=== PATIENT | female | born 1985 | race Caucasian/White ===

== ENCOUNTER → 2017-02-26 | Outpatient (REF) | payer OTHER ==
[~2017-02-26] MED LIST: TRINTAB11
[2017-02-26 19:16] LABS: DIFF SLIDE NUMBER 286; MEAN CORPUSCULAR HGB CONC 33.7 g/dl (32.0-36.5); MEAN CORPUSCULAR VOLUME 85.9 fl (80.0-96.0); PLATELET COUNT, AUTOMATED 372 k/mm3 (150-450); RED CELL DISTRIBUTION WIDTH 11.9 % (11.5-14.5); WHITE BLOOD COUNT 12.3 K/mm3 (4.0-10.0)
[2017-02-26 20:09] LABS: ALBUMIN 3.6 GM/DL (3.2-5.2); ALBUMIN/GLOBULIN RATIO 0.97 (1.00-1.93); ALKALINE PHOSPHATASE 106 U/L (45-117); ALT/SGPT 23 U/L (12-78); ANION GAP 9 MEQ/L (8-16); AST/SGOT 15 U/L (15-37); BILIRUBIN,TOTAL 0.2 MG/DL (0.2-1.0); BLOOD UREA NITROGEN 12 MG/DL (7-18); CALCIUM LEVEL 9.1 MG/DL (8.5-10.1); CARBON DIOXIDE LEVEL 25 MEQ/L (21-32); CHLORIDE LEVEL 106 MEQ/L (98-107); CREATININE FOR GFR 0.85 MG/DL (0.55-1.02); FREE T4 1.02 NG/DL (0.76-1.46); GLOMERULAR FILTRATION RATE > 60.0 (>60); GLUCOSE, FASTING 83 MG/DL (70-105); POTASSIUM SERUM 4.5 MEQ/L (3.5-5.1); SODIUM LEVEL 140 MEQ/L (136-145); TOTAL PROTEIN 7.3 GM/DL (6.4-8.2)
[2017-02-26 20:10] LABS: FOLATE 8.2 NG/ML
[2017-02-26 21:24] LABS: EOSINOPHILS 1 % (0-5)
[2017-02-26 21:28] LABS: ACANTHOCYTES 1+; POIKILOCYTOSIS 1+
[2017-02-26 22:11] LABS: ERYTHROCYTE SEDIMENTATION RATE 19 mm/hr (0-20)
== END ==
LOC: M SFHCPLAZ 16:06
PROVIDERS: ATTEND Nurse Practitioner Family
DX: G43.109 Migraine with aura, not intractable, without status migrainosus (principal); R53.83 Other fatigue

== ENCOUNTER → 2017-03-21 | Outpatient (CLI) | payer OTHER ==
--- NOTE | 2017-03-21 09:10 | REP ---
Right upper quadrant sonography: History: However quadrant pain. Comparison study: There is a CT study of the abdomen from February 04, 2011. Findings: Scanning through the right upper quadrant of the abdomen demonstrates a normal sized, thin-walled gallbladder without evidence of stone or polyp. Common bile duct is normal measuring 0.3 cm in greatest diameter. No focal liver lesion is seen. Liver size is normal. There is a simple cyst in the right lobe of the liver measuring 2.2 cm in greatest diameter. This was present in an [address] study at which point it measures 1.4 cm. No pancreatic abnormality is observed. The tail of the pancreas is obscured by abdominal gas. No right renal abnormality is seen. There is no evidence of ascites. The right kidney measures 11.5 x 5.0 x 4.2 cm. Impression: Small cyst right lobe hepatic lobe, otherwise negative right upper quadrant sonography. Signed by Josh Tolliver MD 03/21/2017 09:02 A
== END ==
LOC: M WHC 07:48
PROVIDERS: ATTEND Nurse Practitioner Family
DX: R10.11 Right upper quadrant pain (principal); K76.89 Other specified diseases of liver

== ENCOUNTER 2017-07-13 06:26 | Emergency (ER) | payer OTHER ==
[2017-07-13] MEDS ORDERED: migraine med PO (06:39)
[2017-07-13] MEDS ORDERED: METF500T13 PO (06:39)
[2017-07-13] MEDS ORDERED: TOPA100T12 PO (06:39)
[2017-07-13] MEDS ORDERED: PROZ20CA11 PO (06:39)
[2017-07-13] MEDS ORDERED: birth control PO (06:39)
[2017-07-13] MEDS ORDERED: MORPHINE 4 MG/ML 1ML SYRINGE IV ONE (07:00)
[2017-07-13] MEDS ORDERED: ONDANSETRON 4MG/2ML VIAL (J2405) IV ONE (07:00)
[2017-07-13 07:10] LABS: BASO # 0.1 K/mm3 (0.0-0.2); BASO % 0.7 % (0.0-1.0); EOS # 0.2 K/mm3 (0.0-0.50); EOS % 1.5 % (0.0-3.0); LARGE UNSTAINED CELL # 0.3 K/mm3 (0.0-0.4); LARGE UNSTAINED CELL % 2.1 % (0.0-4.0); LYMPH % 30.4 % (24.0-44.0); MEAN CORPUSCULAR HEMOGLOBIN 29.6 pg (27.0-33.0); MEAN CORPUSCULAR HGB CONC 33.8 g/dl (32.0-36.5); MEAN CORPUSCULAR VOLUME 87.4 fl (80.0-96.0); MONO # 0.7 K/mm3 (0.0-0.8); MONO % 5.7 % (0.0-5.0); NEUTROPHILS # 7.3 K/mm3 (1.8-7.7); NEUTROPHILS % 59.5 % (36.0-66.0); PLATELET COUNT, AUTOMATED 362 k/mm3 (150-450); WHITE BLOOD COUNT 12.3 K/mm3 (4.0-10.0)
[2017-07-13] MEDS ORDERED: PROMETHAZINE INJ 25 MG/ML VIAL (J2550) IV ONE (07:15)
[2017-07-13 07:31] LABS: CONTROL LINE HCG INT CTR LINE PRESENT
--- NOTE | 2017-07-13 07:33 | ECGEPIP ---
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
[2017-07-13 07:42] LABS: ALBUMIN 3.6 GM/DL (3.2-5.2); ALBUMIN/GLOBULIN RATIO 1.03 (1.00-1.93); ALKALINE PHOSPHATASE 104 U/L (45-117); ALT/SGPT 21 U/L (12-78); ANION GAP 10 MEQ/L (8-16); AST/SGOT 15 U/L (15-37); BILIRUBIN,DIRECT 0.1 MG/DL (0.0-0.2); BILIRUBIN,TOTAL 0.3 MG/DL (0.2-1.0); BLOOD UREA NITROGEN 15 MG/DL (7-18); CALCIUM LEVEL 9.1 MG/DL (8.5-10.1); CARBON DIOXIDE LEVEL 20 MEQ/L (21-32); CHLORIDE LEVEL 112 MEQ/L (98-107); CREATININE FOR GFR 0.92 MG/DL (0.55-1.02); GLOMERULAR FILTRATION RATE > 60.0 (>60); GLUCOSE, FASTING 105 MG/DL (70-105); POTASSIUM SERUM 4.1 MEQ/L (3.5-5.1); SODIUM LEVEL 142 MEQ/L (136-145); TOTAL PROTEIN 7.1 GM/DL (6.4-8.2)
--- NOTE | 2017-07-13 08:10 | REP ---
CT of the abdomen pelvis without IV or bowel contrast: Comparison is a 02/04/2011. The visualized lung ramirez are clear. There is a 2 cm cyst in the hepatic dome. This measured to 1.4 cm previously. The unenhanced hepatic parenchyma is otherwise homogeneous and unremarkable. The gallbladder, pancreas and spleen are unremarkable. The adrenals, unenhanced kidneys and abdominal aorta are unremarkable. There is no bowel distension. Mesentery is unremarkable. There is no ascites. Pelvis: The appendix is unremarkable. The uterus and adnexa and urinary bladder are unremarkable. There is no adenopathy or ascites. The pelvic bowel loops are unremarkable. Impression: Essentially negative CT study of the abdomen pelvis without IV or bowel contrast. A 2 cm cyst is incidentally noted in the dome of the liver. Signed by Rodolfo Jha MD 07/13/2017 08:02 A
--- NOTE | 2017-07-13 08:27 | REP ---
Supine abdomen two views: There are no comparisons. The bowel gas pattern is normal. There are pelvic calcifications, likely phleboliths. Skeletal structures and soft tissues are otherwise unremarkable. Impression: Normal bowel gas pattern. Signed by Rodolfo Jha MD 07/13/2017 08:15 A
[2017-07-13] MEDS ORDERED: ISOVUE-370 76% 100ML VIAL (Q9967) As Ordered ONE (08:29)
--- NOTE | 2017-07-13 09:19 | REP ---
CT of the abdomen and pelvis with IV contrast, without bowel contrast: The visualized lung ramirez are unremarkable. There is a 2.0 cm cyst in the dome of the liver. The hepatic parenchyma is otherwise homogeneous and unremarkable. The gallbladder, pancreas and spleen are homogeneous and unremarkable. The adrenals are unremarkable. The kidneys are unremarkable. There is no hydronephrosis. The abdominal aorta is unremarkable. There is no bowel distension or obstruction. No bowel wall thickening or enhancement. The M mesentery is unremarkable. Pelvis: The appendix is not identified, however there is no pericecal inflammation or abscess. There is no ascites or adenopathy. The uterus, adnexa and bladder are unremarkable. The pelvic bowel loops are unremarkable. Impression: There are no inflammatory changes in the mesentery. No adenopathy or ascites. No bowel wall thickening, enhancement or bowel obstruction. There is a 2 cm cyst in the dome of the liver. No hydronephrosis. Abdominal aorta is unremarkable. The gallbladder is unremarkable. Essentially negative CT of the abdomen and pelvis. Signed by Rodolfo Jha MD 07/13/2017 09:11 A
[2017-07-13 10:28] VITALS: BP 132/80
[2017-07-13] MEDS ORDERED: PHEN1SUP6 PO (10:28)
--- NOTE | 2017-07-13 13:26 | ED PDOC ---
Post-Departure Follow-Up radiology report faxed to PCP, [facility] Caren Kidd MD Jul 13, 2017 13:26
[2017-08-20] MEDS ORDERED: ENSKTAB PO (09:27)
[2017-08-20] MEDS ORDERED: VITA100067 PO (09:27)
== END 2017-07-13 10:50 | disposition home or self-care (01) ==
LOC: M ED 06:26
DX: R10.9 Unspecified abdominal pain (principal); N80.9 Endometriosis, unspecified; K58.9 Irritable bowel syndrome, unspecified; Z87.42 Personal history of other diseases of the female genital tract
CPT/HCPCS: 74000; 74176; 74177; 80048; 80076; 83605; 83690; 84703; 85025; 93000; 93041; 96374; 96375; 99285; J2405; Q9967

== ENCOUNTER → 2017-07-16 | Outpatient (REF) | payer OTHER ==
[~2017-07-16] MED LIST changes: +ENSKTAB PO; +METF500T13 PO; +PHEN1SUP6 PO; +PROZ20CA11 PO; +TOPA100T12 PO; +VITA100067 PO; +birth control PO; +migraine med PO
== END ==
LOC: M SFHCPLAZ 09:19
PROVIDERS: ATTEND Nurse Practitioner Family
DX: R19.7 Diarrhea, unspecified (principal)

== ENCOUNTER → 2017-07-22 | Outpatient (REF) | payer OTHER ==
[2017-07-22 17:53] LABS: ALBUMIN 3.4 GM/DL (3.2-5.2); ALBUMIN/GLOBULIN RATIO 0.92 (1.00-1.93); ALKALINE PHOSPHATASE 104 U/L (45-117); ALT/SGPT 20 U/L (12-78); ANION GAP 11 MEQ/L (8-16); AST/SGOT 11 U/L (15-37); BILIRUBIN,TOTAL 0.2 MG/DL (0.2-1.0); BLOOD UREA NITROGEN 14 MG/DL (7-18); CALCIUM LEVEL 8.8 MG/DL (8.5-10.1); CARBON DIOXIDE LEVEL 20 MEQ/L (21-32); CHLORIDE LEVEL 112 MEQ/L (98-107); CREATININE FOR GFR 0.97 MG/DL (0.55-1.02); GLOMERULAR FILTRATION RATE > 60.0 (>60); GLUCOSE, FASTING 106 MG/DL (70-105); POTASSIUM SERUM 4.1 MEQ/L (3.5-5.1); SODIUM LEVEL 143 MEQ/L (136-145); TOTAL PROTEIN 7.1 GM/DL (6.4-8.2)
[2017-07-22 17:58] LABS: FOLATE 5.8 NG/ML (>5.4); VITAMIN B12 LEVEL 476 PG/ML (247-911)
[2017-07-22 19:32] LABS: BASO # 0.1 K/mm3 (0.0-0.2); BASO % 0.5 % (0.0-1.0); EOS # 0.1 K/mm3 (0.0-0.50); LARGE UNSTAINED CELL # 0.1 K/mm3 (0.0-0.4); LARGE UNSTAINED CELL % 0.9 % (0.0-4.0); LYMPH # 3.3 K/mm3 (1.5-4.5); LYMPH % 29.3 % (24.0-44.0); MEAN CORPUSCULAR HEMOGLOBIN 29.4 pg (27.0-33.0); MEAN CORPUSCULAR HGB CONC 33.2 g/dl (32.0-36.5); MEAN CORPUSCULAR VOLUME 88.5 fl (80.0-96.0); MONO # 0.5 K/mm3 (0.0-0.8); MONO % 4.2 % (0.0-5.0); NEUTROPHILS # 7.1 K/mm3 (1.8-7.7); NEUTROPHILS % 64.1 % (36.0-66.0); PLATELET COUNT, AUTOMATED 327 k/mm3 (150-450); WHITE BLOOD COUNT 11.1 K/mm3 (4.0-10.0)
== END ==
LOC: M LABNEURO 16:13
PROVIDERS: ATTEND Psychiatry & Neurology Neurology
DX: G43.009 Migraine without aura, not intractable, without status migrainosus (principal)

== ENCOUNTER → 2017-08-01 | Outpatient (CLI) | payer OTHER ==
[2017-08-01 13:26] LABS: HEPATITIS B SURFACE ANTIBODY NEGATIVE (POSITIVE)
[2017-08-02 14:11] LABS: TISSUE TRANSGLUTAMINASE IgG <2 U/mL (0-5)
== END ==
LOC: M LAB 08:03
PROVIDERS: ATTEND Internal Medicine Gastroenterology
DX: R10.13 Epigastric pain (principal)

== ENCOUNTER → 2017-08-14 | Outpatient (CLI) | payer OTHER ==
--- NOTE | 2017-08-14 10:34 | REP ---
BILIARY SCAN WITH EJECTION FRACTION: 08/14/2017. COMPARISON: gallbladder ultrasound 03/21/2017, CT abdomen and pelvis 07/13/2017. CLINICAL HISTORY: Epigastric pain. Known hepatic cyst. Nausea and heartburn. TECHNIQUE: The patient received 6.6 mCi technetium 99m mebrofenin via an IV. Sequential 5-minute anterior images were obtained for 1 hour. Thereafter 8 ounces of Ensure Enlive were consumed. Beginning 65 minutes post tracer administration, another period of 60 minutes of dynamic imaging were performed at 2 minute intervals. Region of interest drawn about the gallbladder and gallbladder ejection fraction calculated by a semi-automated method. FINDINGS: There is homogeneous tracer distribution throughout the liver with the exception of the breast shadow over the dome of the liver and this is normal. Activity is first seen in the common duct and duodenum at 15 minutes with a tiny amount in the gallbladder fossa with progressive activity accumulating in the gallbladder. Jejunum first seen on the 20-minute image. There is progressive washout from the liver, accumulation in the gallbladder with peristalsis into small bowel in a normal fashion. Gallbladder ejection fraction at 1 hour is measured at 40%. A normal range with this technique is greater than 35%. IMPRESSION: 1. Normal biliary scan for homogeneous prompt tracer distribution, normal biliary to bowel transit and accumulation of tracer in the gallbladder, all in unremarkable fashion, good washout from the liver. 2. Ejection fraction 40% at 1 hour. This is at the low end of the normal range. Signed by Timmy Evans MD 08/14/2017 02:57 P
== END ==
LOC: M RAD 07:35
PROVIDERS: ATTEND Internal Medicine Gastroenterology
DX: R10.13 Epigastric pain (principal)

== ENCOUNTER 2017-08-26 09:30 | Outpatient (CLI) | payer OTHER ==
[~2017-08-26] VITALS: Ht 172.7 cm; Wt 101.6 kg
[2017-08-26] MEDS ORDERED: NS 1,000 ML IV ONE (09:45)
[2017-08-26] MEDS ORDERED: fentaNYL 100 MCG/2 ML INJECTION (J3010) As Ordered ONE (10:21)
[2017-08-26] MEDS ORDERED: PROPOFOL 200 MG/20 ML VIAL As Ordered ONE (10:29)
[2017-08-26] MEDS ORDERED: LIDOCAINE 2% INJ 100 MG/5 ML SDV (FOR ANES.) As Ordered ONE (10:29)
--- NOTE | 2017-08-26 10:40 | ROOR ---
Patient Name: Krista Sykes Procedure Date: 08/26/2017 10:19 AM Date of : 1985 Age: 31 Room: [facility] Gender: Female Note Status: Finalized Procedure: Upper GI endoscopy Indications: Dyspepsia, Dysphagia Providers: Km Brumfield MD Referring MD: Galina Galindo NP Requesting Provider: Medicines: Monitored Anesthesia Care Complications: No immediate complications. Procedure: Pre-Anesthesia Assessment: - Prior to the procedure, a History and Physical was performed, and patient medications and allergies were reviewed. The patient is competent. The risks and benefits of the procedure and the sedation options and risks were discussed with the patient. All questions were answered and informed consent was obtained. Patient identification and proposed procedure were verified by the physician, the nurse and the customer consultant in the procedure room. Mental Status Examination: alert and oriented. Airway Examination: normal oropharyngeal airway and neck mobility. Respiratory Examination: clear to auscultation. CV Examination: normal. Prophylactic Antibiotics: The patient does not require prophylactic antibiotics. Prior Anticoagulants: The patient has taken no previous anticoagulant or antiplatelet agents. ASA Grade Assessment: II - A patient with mild systemic disease. After reviewing the risks and benefits, the patient was deemed in satisfactory condition to undergo the procedure. The anesthesia plan was to use monitored anesthesia care (MAC). Immediately prior to administration of medications, the patient was re-assessed for adequacy to receive sedatives. The heart rate, respiratory rate, oxygen saturations, blood pressure, adequacy of pulmonary ventilation, and response to care were monitored throughout the procedure. The physical status of the patient was re-assessed after the procedure. The Endoscope was introduced through the mouth, and advanced to the second part of duodenum. The upper GI endoscopy was accomplished without difficulty. The patient tolerated the procedure well. Findings: No endoscopic abnormality was evident in the esophagus to explain the patient's complaint of dysphagia. Biopsies were obtained from the proximal and distal esophagus with cold forceps for histology of suspected eosinophilic esophagitis. Verification of patient identification for the specimen was done by the physician and nurse using the patient's name, date and medical record number. Estimated blood loss was minimal. The Z-line was regular and was found 39 cm from the incisors. Diffuse mildly erythematous mucosa without bleeding was found in the gastric antrum. Biopsies were taken with a cold forceps for Helicobacter pylori testing. No gross lesions were noted in the duodenal bulb and in the second portion of the duodenum. Biopsies for histology were taken with a cold forceps for evaluation of celiac disease. Impression: - No endoscopic esophageal abnormality to explain patient's dysphagia. Biopsied. - Z-line regular, 39 cm from the incisors. - Erythematous mucosa in the antrum. Biopsied. - No gross lesions in the duodenal bulb and in the second portion of the duodenum. Biopsied. Recommendation: - Patient has a contact number available for emergencies. The signs and symptoms of potential delayed complications were discussed with the patient. Return to normal activities tomorrow. Written discharge instructions were provided to the patient. - Resume previous diet. - Continue present medications. - Await pathology results. - Return to GI clinic as previously scheduled on 09/15/2017 at 9:00 AM. - Return to primary care physician. Km Brumfield MD Km Brumfield MD 08/26/2017 10:40:19 AM This report has been signed electronically. Number of Addenda: 0 Note Initiated On: 08/26/2017 10:19 AM Estimated Blood Loss: Estimated blood loss was minimal.
[2017-08-26 11:04] VITALS: BP 116/66
== END 2017-08-26 11:06 | disposition home or self-care (01) ==
LOC: M OPP 09:30
PROVIDERS: ATTEND Internal Medicine Gastroenterology
DX: R13.10 Dysphagia, unspecified (principal); R10.13 Epigastric pain; K31.89 Other diseases of stomach and duodenum; N80.9 Endometriosis, unspecified; E28.2 Polycystic ovarian syndrome; F41.9 Anxiety disorder, unspecified; K58.0 Irritable bowel syndrome with diarrhea; Z80.1 Family history of malignant neoplasm of trachea, bronchus and lung; Z79.899 Other long term (current) drug therapy
CPT/HCPCS: 43239; 88305; J3010

== ENCOUNTER → 2017-12-29 | Outpatient (CLI) | payer OTHER ==
[2017-12-29 10:49] LABS: BASO # 0.1 10^3/uL (0.0-0.2); BASO % 0.8 % (0.0-1.0); EOS # 0.2 10^3/uL (0.0-0.50); EOS % 1.9 % (0.0-3.0); HEMATOCRIT 40.3 % (36.0-47.0); HEMOGLOBIN 13.1 g/dl (12.0-16.0); IMMATURE GRANULOCYTE % 0.2 % (0-0); LYMPH # 4.1 10^3/uL (1.5-4.5); LYMPH % 42.3 % (24.0-44.0); MEAN CORPUSCULAR HEMOGLOBIN 28.5 pg (27.0-33.0); MEAN CORPUSCULAR HGB CONC 32.5 g/dl (32.0-36.5); MEAN CORPUSCULAR VOLUME 87.8 fl (80.0-96.0); MONO # 0.8 10^3/uL (0.0-0.8); MONO % 7.9 % (0.0-5.0); NEUTROPHILS # 4.5 10^3/uL (1.8-7.7); NEUTROPHILS % 46.9 % (36.0-66.0); PLATELET COUNT, AUTOMATED 319 10^3/uL (150-450); RED BLOOD COUNT 4.59 10^6/uL (4.00-5.40); RED CELL DISTRIBUTION WIDTH 13.2 % (11.5-14.5); WHITE BLOOD COUNT 9.7 10^3/uL (4.0-10.0)
== END ==
LOC: M LAB 10:18
DX: D72.829 Elevated white blood cell count, unspecified (principal)
CPT/HCPCS: 85027

== ENCOUNTER → 2018-01-08 | Outpatient (CLI) | payer OTHER | LOC: M WHC 08:13 | DX: K76.89 Other specified diseases of liver (principal) | CPT/HCPCS: 76705 ==

== ENCOUNTER → 2018-01-09 | Outpatient (REF) | payer OTHER ==
[2018-01-09 12:53] LABS: ALBUMIN 3.7 GM/DL (3.2-5.2); ALBUMIN/GLOBULIN RATIO 1.12 (1.00-1.93); ALKALINE PHOSPHATASE 91 U/L (45-117); ALT/SGPT 46 U/L (12-78); ANION GAP 8 MEQ/L (8-16); AST/SGOT 30 U/L (7-37); BILIRUBIN,TOTAL 0.4 MG/DL (0.2-1.0); BLOOD UREA NITROGEN 21 MG/DL (7-18); CALCIUM LEVEL 9.1 MG/DL (8.5-10.1); CARBON DIOXIDE LEVEL 25 MEQ/L (21-32); CHLORIDE LEVEL 110 MEQ/L (98-107); CHOLESTEROL LEVEL 272 MG/DL (<200); CHOLESTEROL RISK RATIO 4.184 (<5); CREATININE FOR GFR 0.92 MG/DL (0.55-1.30); GLOMERULAR FILTRATION RATE > 60.0 (>60); GLUCOSE, FASTING 90 MG/DL (70-100); HDL CHOLESTEROL 65 MG/DL (>40); LDL CHOLESTEROL 188.2 MG/DL (<100); NON-HDL-C 207 MG/DL; POTASSIUM SERUM 4.4 MEQ/L (3.5-5.1); SODIUM LEVEL 143 MEQ/L (136-145); TRIGLYCERIDES LEVEL 94 MG/DL (<150)
[2018-01-09 13:01] LABS: TOTAL 25(OH) VITAMIN D 36.6 NG/ML (30.0-100.0)
== END ==
LOC: M SFHCPLAZ 08:19
DX: E78.00 Pure hypercholesterolemia, unspecified (principal); E55.9 Vitamin D deficiency, unspecified

== ENCOUNTER 2018-02-12 09:51 | Outpatient (RCR) | payer OTHER | END 2018-02-28 | LOC: M PT 09:51 | DX: Z51.89 Encounter for other specified aftercare (principal); M19.90 Unspecified osteoarthritis, unspecified site ==

== ENCOUNTER 2018-03-02 10:52 | Outpatient (RCR) | payer OTHER | END 2018-03-30 | LOC: M PT 10:52 | DX: Z51.89 Encounter for other specified aftercare (principal); M54.5 Low back pain ==

== ENCOUNTER 2018-05-22 12:16 | Day surgery (SDC) | payer OTHER ==
[~2018-05-22 12:16] MED LIST changes: -ENSKTAB PO; +GLYCOPYRROLATE INJ 0.2 MG/ML 2 ML VIAL As Ordered; +HYDROmorphone HCL 2 MG/ML 1ML VIAL (J1170) As Ordered; +KETOROLAC 60 MG/2 ML VIAL (J1885) As Ordered; +LIDOCAINE 2% INJ 100 MG/5 ML SDV (FOR ANES.) As Ordered; -METF500T13 PO; +MIDAZOLAM INJ 2 MG/2 ML VIAL (J2250) As Ordered; +NEOSTIGMINE 10 MG/10 ML VIAL (J2710) As Ordered; +ONDANSETRON 4MG/2ML VIAL (J2405) As Ordered; -PHEN1SUP6 PO; +PROPOFOL 200 MG/20 ML VIAL As Ordered; -PROZ20CA11 PO; +ROCURONIUM BROMIDE 50 MG/5 ML VIAL As Ordered; -TOPA100T12 PO; -TRINTAB11; -VITA100067 PO; -birth control PO; +dexameTHASONE 4 MG/ML 1ML VIAL (J1100) As Ordered; +fentaNYL 100 MCG/2 ML INJECTION (J3010) As Ordered; -migraine med PO
[2018-05-22] MEDS ORDERED: LIDOCAINE 1% SDV 5 ML VIAL SQ (12:30)
[2018-05-22 12:36] LABS: HEMOGLOBIN 13.5 g/dl (12.0-15.5); MEAN CORPUSCULAR HEMOGLOBIN 29.3 pg (27.0-33.0); MEAN CORPUSCULAR HGB CONC 33.8 g/dl (32.0-36.5); PLATELET COUNT, AUTOMATED 318 10^3/uL (150-450); RED CELL DISTRIBUTION WIDTH 13.2 % (11.5-14.5); WHITE BLOOD COUNT 11.3 10^3/uL (4.0-10.0)
[2018-05-22] MEDS ORDERED: ceFAZolin 2 GM/D5W 50 ML IV BAG (J0690 PER 500MG) As Ordered (12:46)
[2018-05-22 12:57] LABS: CONTROL LINE UCG INT CTR LINE PRESENT; URINE PREG TEST NEGATIVE (NEGATIVE)
[2018-05-22] MEDS: LR 1,000 ML IV ×3 (13:25→16:15)
[2018-05-22] MEDS: NICOTINE 21MG/24HR 1 EA TRANSDERMAL TD (14:05)
[2018-05-22] MEDS: BUPIVACAINE HCL 0.25% 10 ML VIAL As Ordered (14:40)
[2018-05-22] MEDS: METHYLENE BLUE 0.5% (5MG/ML) 10 ML AMP (PROVAYBLUE)(Q9968 PER 1MG) As Ordered (15:00)
[2018-05-22] MEDS ORDERED: ROCURONIUM BROMIDE 50 MG/5 ML VIAL As Ordered (15:10)
[2018-05-22] MEDS ORDERED: fentaNYL 100 MCG/2 ML INJECTION (J3010) As Ordered (16:02)
[2018-05-22] MEDS: fentaNYL 100 MCG/2 ML INJECTION (J3010) IV ×4 (16:05→16:20)
[2018-05-22] MEDS: PERCOCET 5MG/325MG TAB PO ×3 (16:15→21:06)
[2018-05-22] MEDS ORDERED: ONDANSETRON 4MG/2ML VIAL (J2405) IV ×2 (16:15)
[2018-05-22] MEDS ORDERED: PERCOCET 5MG/325MG TAB PO (16:15)
[2018-05-22] MEDS ORDERED: MORPHINE 4 MG/ML 1ML VIAL/SYRINGE (J2270) IV (16:15)
[2018-05-22] MEDS: DOCUSATE SODIUM 100 MG CAP PO (21:05)
[2018-05-22] MEDS: FLUoxetine 10 MG CAP PO (21:51)
[2018-05-23] MEDS: LR 1,000 ML IV (00:15)
[2018-05-23] MEDS: PERCOCET 5MG/325MG TAB PO ×2 (01:13→05:53)
[2018-05-23] MEDS: DOCUSATE SODIUM 100 MG CAP PO (09:17)
== END 2018-05-23 09:30 | disposition home or self-care (01) ==
LOC: M SDC 12:16 → M PED 16:58
DX: R10.2 Pelvic and perineal pain (principal); N73.6 Female pelvic peritoneal adhesions (postinfective); N99.71 Accidental puncture and laceration of a genitourinary system organ or structure during a genitourinary system procedure; N72 Inflammatory disease of cervix uteri; K21.9 Gastro-esophageal reflux disease without esophagitis; N80.0 Endometriosis of uterus; F41.9 Anxiety disorder, unspecified; E28.2 Polycystic ovarian syndrome; K58.9 Irritable bowel syndrome, unspecified; F17.210 Nicotine dependence, cigarettes, uncomplicated; Z79.899 Other long term (current) drug therapy
CPT/HCPCS: 58571

== ENCOUNTER → 2018-09-29 | Outpatient (REF) | payer OTHER ==
[2018-09-29 12:05] LABS: ESTIMATED AVERAGE GLUCOSE 111 MG/DL (60-110); HEMOGLOBIN A1c 5.5 %
[2018-09-29 12:43] LABS: ALBUMIN/GLOBULIN RATIO 1.43 (1.00-1.93); ALKALINE PHOSPHATASE 96 U/L (45-117); ALT/SGPT 20 U/L (12-78); ANION GAP 7 MEQ/L (8-16); AST/SGOT 14 U/L (7-37); BILIRUBIN,TOTAL 0.3 MG/DL (0.2-1.0); BLOOD UREA NITROGEN 15 MG/DL (7-18); CALCIUM LEVEL 8.9 MG/DL (8.5-10.1); CARBON DIOXIDE LEVEL 22 MEQ/L (21-32); CHLORIDE LEVEL 110 MEQ/L (98-107); CHOLESTEROL LEVEL 253 MG/DL (<200); CREATININE FOR GFR 0.86 MG/DL (0.55-1.30); FREE T4 0.96 NG/DL (0.76-1.46); GLOMERULAR FILTRATION RATE > 60.0 (>60); GLUCOSE, FASTING 92 MG/DL (70-100); HDL CHOLESTEROL 51 MG/DL (>40); LDL CHOLESTEROL 182 MG/DL (<100); NON-HDL-C 202 MG/DL; POTASSIUM SERUM 4.5 MEQ/L (3.5-5.1); SODIUM LEVEL 139 MEQ/L (136-145); TOTAL 25(OH) VITAMIN D 42.7 NG/ML (30.0-100.0); TOTAL PROTEIN 6.8 GM/DL (6.4-8.2); TRIGLYCERIDES LEVEL 101 MG/DL (<150)
== END ==
LOC: M SFHCPLAZ 08:21
DX: E78.00 Pure hypercholesterolemia, unspecified (principal); F41.9 Anxiety disorder, unspecified; E55.9 Vitamin D deficiency, unspecified

== ENCOUNTER → 2018-10-12 | Outpatient (CLI) | payer OTHER, MEDICAID ==
[2018-10-12 14:51] LABS: HEPATITIS C VIRUS ABY INDEX 0.1 INDEX (<0.8)
[2018-10-12 14:51] LABS: HEPATITIS A ANTIBODY IGM NEGATIVE (NEGATIVE); HEPATITIS B CORE ANTIBODY IGM NEGATIVE (NEGATIVE); HEPATITIS B SURFACE ANTIGEN NEGATIVE (NEGATIVE); HIV 1&2 SCREEN CENTAUR NEGATIVE (NEGATIVE)
[2018-10-12 14:53] LABS: CHLAMYDIA DNA AMPLIFICATION NEGATIVE (NEGATIVE); GC DNA AMPLIFICATION NEGATIVE (NEGATIVE)
== END ==
LOC: M SMT 09:20
DX: Z11.3 Encounter for screening for infections with a predominantly sexual mode of transmission (principal)
CPT/HCPCS: 87340

== ENCOUNTER → 2018-11-19 | Outpatient (REF) | payer OTHER ==
[~2018-11-19] MED LIST changes: +ENSKTAB PO; -GLYCOPYRROLATE INJ 0.2 MG/ML 2 ML VIAL As Ordered; -HYDROmorphone HCL 2 MG/ML 1ML VIAL (J1170) As Ordered; +IBUP1TAB7 PO; -KETOROLAC 60 MG/2 ML VIAL (J1885) As Ordered; -LIDOCAINE 2% INJ 100 MG/5 ML SDV (FOR ANES.) As Ordered; +MAGN400C2 PO; +METF500T13 PO; -MIDAZOLAM INJ 2 MG/2 ML VIAL (J2250) As Ordered; -NEOSTIGMINE 10 MG/10 ML VIAL (J2710) As Ordered; +NORE5TAB PO; -ONDANSETRON 4MG/2ML VIAL (J2405) As Ordered; +PERCOCET PO; +PHEN1SUP6 PO; -PROPOFOL 200 MG/20 ML VIAL As Ordered; +PROZ20CA11 PO; -ROCURONIUM BROMIDE 50 MG/5 ML VIAL As Ordered; +TOPA100T12 PO; +TRINTAB11; +VITA100067 PO; +birth control PO; -dexameTHASONE 4 MG/ML 1ML VIAL (J1100) As Ordered; -fentaNYL 100 MCG/2 ML INJECTION (J3010) As Ordered; +migraine med PO
[2018-11-19 13:33] LABS: BASO # 0.1 10^3/uL (0.0-0.2); BASO % 0.5 % (0.0-1.0); EOS # 0.2 10^3/uL (0.0-0.50); EOS % 1.2 % (0.0-3.0); HEMATOCRIT 42.5 % (36.0-47.0); HEMOGLOBIN 13.7 g/dl (12.0-15.5); LYMPH # 3.9 10^3/uL (1.5-4.5); LYMPH % 31.9 % (24.0-44.0); MEAN CORPUSCULAR HEMOGLOBIN 28.8 pg (27.0-33.0); MEAN CORPUSCULAR HGB CONC 32.2 g/dl (32.0-36.5); MEAN CORPUSCULAR VOLUME 89.5 fl (80.0-96.0); MONO % 7.8 % (0.0-5.0); NEUTROPHILS # 7.2 10^3/uL (1.8-7.7); NEUTROPHILS % 58.1 % (36.0-66.0); PLATELET COUNT, AUTOMATED 350 10^3/uL (150-450); RED BLOOD COUNT 4.75 10^6/uL (4.00-5.40); WHITE BLOOD COUNT 12.3 10^3/uL (4.0-10.0)
[2018-11-19 13:56] LABS: ALBUMIN 3.9 GM/DL (3.2-5.2); ALT/SGPT 17 U/L (12-78); BILIRUBIN,TOTAL 0.3 MG/DL (0.2-1.0); BLOOD UREA NITROGEN 17 MG/DL (7-18); CALCIUM LEVEL 8.9 MG/DL (8.5-10.1); CARBON DIOXIDE LEVEL 23 MEQ/L (21-32); CHLORIDE LEVEL 106 MEQ/L (98-107); CREATININE FOR GFR 0.92 MG/DL (0.55-1.30); GLOMERULAR FILTRATION RATE > 60.0 (>60); GLUCOSE, FASTING 82 MG/DL (70-100); POTASSIUM SERUM 4.6 MEQ/L (3.5-5.1); SODIUM LEVEL 138 MEQ/L (136-145); TOTAL PROTEIN 7.4 GM/DL (6.4-8.2)
== END ==
LOC: M SFHCPLAZ 11:05
PROVIDERS: ATTEND Physician Assistant Medical
DX: R11.0 Nausea (principal)

== ENCOUNTER → 2019-04-05 | Outpatient (REF) | payer OTHER ==
[~2019-04-05] MED LIST changes: +ENSK1TAB3 PO; -ENSKTAB PO
[2019-04-05 11:08] LABS: ALBUMIN 3.7 GM/DL (3.2-5.2); ALT/SGPT 17 U/L (12-78); BILIRUBIN,TOTAL 0.3 MG/DL (0.2-1.0); BLOOD UREA NITROGEN 18 MG/DL (7-18); CALCIUM LEVEL 8.8 MG/DL (8.5-10.1); CARBON DIOXIDE LEVEL 25 MEQ/L (21-32); CHLORIDE LEVEL 111 MEQ/L (98-107); CHOLESTEROL LEVEL 266 MG/DL (<200); CHOLESTEROL RISK RATIO 5.018 (<5); FREE T4 0.87 NG/DL (0.76-1.46); GLOMERULAR FILTRATION RATE > 60.0 (>60); GLUCOSE, FASTING 81 MG/DL (70-100); HDL CHOLESTEROL 53 MG/DL (>40); LDL CHOLESTEROL 188 MG/DL (<100); NON-HDL-C 213 MG/DL; POTASSIUM SERUM 4.6 MEQ/L (3.5-5.1); SODIUM LEVEL 139 MEQ/L (136-145); TRIGLYCERIDES LEVEL 124 MG/DL (<150)
== END ==
LOC: M SFHCPLAZ 08:03
PROVIDERS: ATTEND Nurse Practitioner Family
DX: E78.00 Pure hypercholesterolemia, unspecified (principal)

== ENCOUNTER 2019-06-05 11:17 | Emergency (ER) | payer OTHER ==
[~2019-06-05] VITALS: Ht 172.7 cm; Wt 113.6 kg
[2019-06-05] MEDS ORDERED: NS 1,000 ML IV ONE (12:00)
[2019-06-05] MEDS ORDERED: diphenhydrAMINE INJ 50MG/ML VIAL (J1200) IV ONE (12:00)
[2019-06-05] MEDS ORDERED: METOCLOPRAMIDE INJ 10MG/2ML VIAL (J2765) IV ONE (12:00)
[2019-06-05] MEDS ORDERED: KETOROLAC 30 MG/ML VIAL (J1885) IV ONE (12:00)
[2019-06-05 13:28] VITALS: BP 122/80
== END 2019-06-05 14:01 | disposition home or self-care (01) ==
LOC: M ED 12:08
DX: G43.909 Migraine, unspecified, not intractable, without status migrainosus (principal); F41.9 Anxiety disorder, unspecified; E28.2 Polycystic ovarian syndrome; Z79.899 Other long term (current) drug therapy; Z88.0 Allergy status to penicillin; Z88.2 Allergy status to sulfonamides
CPT/HCPCS: 96361; 96374; 96375; 99284; J1200; J1885; J2765

== ENCOUNTER → 2019-07-06 | Outpatient (REF) | payer OTHER ==
[2019-07-06 11:17] LABS: HEMOGLOBIN A1c 6.1 %
[2019-07-06 11:27] LABS: ALBUMIN 3.6 GM/DL (3.2-5.2); ALT/SGPT 14 U/L (12-78); BILIRUBIN,TOTAL 0.4 MG/DL (0.2-1.0); BLOOD UREA NITROGEN 13 MG/DL (7-18); CALCIUM LEVEL 8.4 MG/DL (8.5-10.1); CARBON DIOXIDE LEVEL 24 MEQ/L (21-32); CHLORIDE LEVEL 112 MEQ/L (98-107); CHOLESTEROL LEVEL 238 MG/DL (<200); CHOLESTEROL RISK RATIO 5.173 (<5); GLOMERULAR FILTRATION RATE > 60.0 (>60); GLUCOSE, FASTING 80 MG/DL (70-100); HDL CHOLESTEROL 46 MG/DL (>40); LDL CHOLESTEROL 172 MG/DL (<100); NON-HDL-C 192 MG/DL; POTASSIUM SERUM 4.3 MEQ/L (3.5-5.1); SODIUM LEVEL 142 MEQ/L (136-145); TOTAL PROTEIN 6.8 GM/DL (6.4-8.2); TRIGLYCERIDES LEVEL 102 MG/DL (<150)
== END ==
LOC: M SFHCPLAZ 08:26
PROVIDERS: ATTEND Nurse Practitioner Family
DX: E28.2 Polycystic ovarian syndrome (principal); E78.00 Pure hypercholesterolemia, unspecified

== ENCOUNTER → 2019-08-24 | Outpatient (REF) | payer OTHER ==
[2019-08-24 10:27] LABS: BASO # 0.1 10^3/uL (0.0-0.2); BASO % 0.7 % (0.0-1.0); EOS # 0.1 10^3/uL (0.0-0.5); EOS % 1.1 % (0.0-3.0); HEMOGLOBIN 13.2 g/dl (12.0-15.5); LYMPH # 3.1 10^3/uL (1.5-5.0); LYMPH % 26.8 % (24.0-44.0); MEAN CORPUSCULAR HEMOGLOBIN 28.9 pg (27.0-33.0); MEAN CORPUSCULAR VOLUME 87.7 fl (80.0-96.0); MONO # 0.9 10^3/uL (0.0-0.8); MONO % 7.8 % (0.0-5.0); NEUTROPHILS # 7.4 10^3/uL (1.5-8.5); PLATELET COUNT, AUTOMATED 344 10^3/uL (150-450); RED BLOOD COUNT 4.56 10^6/uL (4.00-5.40); WHITE BLOOD COUNT 11.7 10^3/uL (4.0-10.0)
[2019-08-24 10:48] LABS: ALBUMIN 3.6 GM/DL (3.2-5.2); ALT/SGPT 21 U/L (12-78); BILIRUBIN,TOTAL 0.5 MG/DL (0.2-1.0); BLOOD UREA NITROGEN 17 MG/DL (7-18); CALCIUM LEVEL 8.9 MG/DL (8.5-10.1); CARBON DIOXIDE LEVEL 23 MEQ/L (21-32); CHLORIDE LEVEL 107 MEQ/L (98-107); FERRITIN 24 NG/ML (8-252); FREE T4 0.92 NG/DL (0.76-1.46); GLOMERULAR FILTRATION RATE > 60.0 (>60); GLUCOSE, FASTING 97 MG/DL (70-100); POTASSIUM SERUM 4.2 MEQ/L (3.5-5.1); SODIUM LEVEL 139 MEQ/L (136-145); TOTAL 25(OH) VITAMIN D 37.8 NG/ML (30.0-100.0); VITAMIN B12 LEVEL 705 PG/ML
== END ==
LOC: M SFHCPLAZ 07:45
PROVIDERS: ATTEND Nurse Practitioner Family
DX: R53.83 Other fatigue (principal)

== ENCOUNTER → 2019-10-04 | Outpatient (REF) | payer OTHER | LOC: M SFHCPLAZ 14:52 | PROVIDERS: ATTEND Nurse Practitioner Adult Health | DX: R73.03 Prediabetes (principal); E78.00 Pure hypercholesterolemia, unspecified; E66.9 Obesity, unspecified; J02.9 Acute pharyngitis, unspecified ==

== ENCOUNTER → 2019-10-05 | Outpatient (CLI) | payer OTHER ==
[2019-10-06 09:20] LABS: HEPATITIS A ANTIBODY IGM NEGATIVE (NEGATIVE); HEPATITIS B CORE ANTIBODY IGM NEGATIVE (NEGATIVE); HEPATITIS B SURFACE ANTIGEN NEGATIVE (NEGATIVE); HIV 1&2 SCREEN CENTAUR NEGATIVE (NEGATIVE)
== END ==
LOC: M SMT 11:25
PROVIDERS: ATTEND Advanced Practice Midwife
DX: Z11.3 Encounter for screening for infections with a predominantly sexual mode of transmission (principal)

== ENCOUNTER → 2019-10-11 | Outpatient (REF) | payer OTHER ==
[2019-10-11 10:44] LABS: ALBUMIN 3.5 GM/DL (3.2-5.2); ALT/SGPT 19 U/L (12-78); BILIRUBIN,TOTAL 0.3 MG/DL (0.2-1.0); BLOOD UREA NITROGEN 13 MG/DL (7-18); CALCIUM LEVEL 8.4 MG/DL (8.5-10.1); CARBON DIOXIDE LEVEL 24 MEQ/L (21-32); CHLORIDE LEVEL 112 MEQ/L (98-107); CHOLESTEROL LEVEL 225 MG/DL (<200); CHOLESTEROL RISK RATIO 4.891 (<5); CREATININE FOR GFR 0.87 MG/DL (0.55-1.30); GLOMERULAR FILTRATION RATE > 60.0 (>60); GLUCOSE, FASTING 93 MG/DL (70-100); HDL CHOLESTEROL 46 MG/DL (>40); LDL CHOLESTEROL 158 MG/DL (<100); NON-HDL-C 179 MG/DL; POTASSIUM SERUM 4.5 MEQ/L (3.5-5.1); SODIUM LEVEL 142 MEQ/L (136-145); TOTAL PROTEIN 6.7 GM/DL (6.4-8.2); TRIGLYCERIDES LEVEL 106 MG/DL (<150)
[2019-10-11 10:52] LABS: TOTAL 25(OH) VITAMIN D 35.5 NG/ML (30.0-100.0)
[2019-10-11 13:25] LABS: HEMOGLOBIN A1c 5.7 %
== END ==
LOC: M SFHCPLAZ 07:50
PROVIDERS: ATTEND Nurse Practitioner Adult Health
DX: R73.03 Prediabetes (principal); E78.00 Pure hypercholesterolemia, unspecified

== ENCOUNTER → 2019-11-09 | Outpatient (REF) | payer OTHER ==
[2019-11-09 15:25] LABS: CHLAMYDIA DNA AMPLIFICATION NEGATIVE (NEGATIVE); GC DNA AMPLIFICATION NEGATIVE (NEGATIVE)
== END ==
LOC: M WHC 13:35
PROVIDERS: ATTEND Advanced Practice Midwife
DX: Z11.3 Encounter for screening for infections with a predominantly sexual mode of transmission (principal)

== ENCOUNTER → 2020-01-18 | Outpatient (CLI) | payer OTHER ==
[2020-01-18 10:29] LABS: TOTAL 25(OH) VITAMIN D 44.1 NG/ML (30.0-100.0)
[2020-01-18 10:30] LABS: HEMOGLOBIN A1c 5.2 %
[2020-01-18 11:06] LABS: BLOOD UREA NITROGEN 16 MG/DL (7-18); CALCIUM LEVEL 8.8 MG/DL (8.5-10.1); CARBON DIOXIDE LEVEL 26 MEQ/L (21-32); CHLORIDE LEVEL 109 MEQ/L (98-107); GLOMERULAR FILTRATION RATE > 60.0 (>60); GLUCOSE, FASTING 90 MG/DL (70-100); POTASSIUM SERUM 4.3 MEQ/L (3.5-5.1); SODIUM LEVEL 139 MEQ/L (136-145)
== END ==
LOC: M PLALAB 08:05
PROVIDERS: ATTEND Nurse Practitioner Family
DX: R73.03 Prediabetes (principal); E55.9 Vitamin D deficiency, unspecified

== ENCOUNTER 2020-06-12 11:29 | Emergency (ER) | payer OTHER ==
[~2020-06-12] VITALS: Ht 172.7 cm; Wt 120.4 kg
[2020-06-12] MEDS ORDERED: LORA-674 PO (11:51)
[2020-06-12 12:42] LABS: HEMATOCRIT 42.8 % (36.0-47.0); MEAN CORPUSCULAR HEMOGLOBIN 29.2 pg (27.0-33.0); MEAN CORPUSCULAR HGB CONC 32.7 g/dl (32.0-36.5); MEAN CORPUSCULAR VOLUME 89.2 fl (80.0-96.0); PLATELET COUNT, AUTOMATED 321 10^3/uL (150-450); WHITE BLOOD COUNT 13.3 10^3/uL (4.0-10.0)
[2020-06-12] MEDS ORDERED: NS 1,000 ML IV ONE (12:45)
[2020-06-12] MEDS ORDERED: KETOROLAC 30 MG/ML 1ML VIAL IV ONE (12:45)
[2020-06-12 13:12] LABS: ALBUMIN 3.6 GM/DL (3.2-5.2); ALT/SGPT 19 U/L (12-78); BILIRUBIN,DIRECT < 0.1 MG/DL (0.0-0.2); BILIRUBIN,TOTAL 0.2 MG/DL (0.2-1.0); LIPASE 154 U/L (73-393); TOTAL PROTEIN 7.3 GM/DL (6.4-8.2)
[2020-06-12 13:21] LABS: BASOPHILS 2 % (0-1); LYMPHOCYTES 40 % (16-44); MONOCYTES 4 % (0-5); NEUTROPHILS 54 % (28-66); PLATELET ESTIMATE NORMAL (NORMAL)
[2020-06-12] MEDS ORDERED: ISOVUE-370 76% 100ML VIAL As Ordered ONE (14:49)
[2020-06-12 15:19] VITALS: BP 125/75
[2020-06-12] MEDS ORDERED: KETO10TAB PO (15:33)
--- NOTE | 2020-06-13 00:40 | REP ---
REASON FOR EXAM: Pelvic pain. Patient is status post hysterectomy and left oophorectomy. The right ovary measures 4.2 x 2.2 x 1.7 cm and is within normal limits with an RI of 0.74. No cystic or solid masses are seen in the pelvic. There is no free fluid. Urinary bladder measures 3 x 5 x 6 cm. Only transvesical imaging was obtained. IMPRESSION: No abnormalities noted. Electronically Signed by Axel Jo DO 06/13/2020 11:34 A
--- NOTE | 2020-06-13 02:18 | REP ---
REASON: Lower abdominal pain. The latest prior for comparison is 07/13/2017. CONTRAST: 100 mL Isovue-370. The lung bases are clear and unchanged. The liver, gallbladder, spleen, pancreas, adrenal glands, and kidneys are unchanged. There is a simple cyst in the liver, status quo. The abdominal aorta and para-aortic regions are unchanged and again seen to be within normal limits. The intra-abdominal and intrapelvic bowel loops and their mesenteries are again seen to be within normal limits. No free fluid or free air is seen in the abdomen or pelvis. There is no intrapelvic or intra-abdominal mass or adenopathy. Bone window technique throughout the examination shows the osseous structures to be stable and intact. IMPRESSION: There is no acute intra-abdominal or intrapelvic disease. Electronically Signed by Axel Jo DO 06/13/2020 11:35 A
[2020-06-14] MEDS ORDERED: MACR100C43 PO (09:28)
[2020-06-14] MEDS ORDERED: FLUC150T PO (09:32)
== END 2020-06-12 15:40 | disposition home or self-care (01) ==
LOC: M ED 11:29
DX: R10.30 Lower abdominal pain, unspecified (principal); E28.2 Polycystic ovarian syndrome; F41.9 Anxiety disorder, unspecified; F32.9 Major depressive disorder, single episode, unspecified; Z79.899 Other long term (current) drug therapy; Z79.84 Long term (current) use of oral hypoglycemic drugs; Z90.710 Acquired absence of both cervix and uterus; Z88.0 Allergy status to penicillin; Z88.2 Allergy status to sulfonamides
CPT/HCPCS: 74177; 76856; 80047; 80076; 81001; 83690; 85025; 87088; 87186; 96361; 96374; 99284; J1885; Q9967

== ENCOUNTER → 2020-08-08 | Outpatient (CLI) | payer OTHER ==
[~2020-08-08] MED LIST changes: +FLUC150T PO; +KETO10TAB PO; +LORA-674 PO; +MACR100C43 PO
--- NOTE | 2020-08-29 13:49 | REP ---
RIGHT FOOT SERIES HISTORY: Medial pain. TECHNIQUE: Four views of the right foot are performed. FINDINGS: I see no evidence of acute fracture, dislocation, or intrinsic bone disease. There is mild posterior calcaneal spurring. There is mild narrowing of the first metatarsophalangeal joint. IMPRESSION: No fracture or dislocation. Mild degenerative changes. MTDD
--- NOTE | 2020-08-29 13:49 | REP ---
RIGHT ANKLE SERIES HISTORY: Pain. TECHNIQUE: Four views of the right foot are performed. FINDINGS: There is no evidence of acute fracture or dislocation. Ankle mortise is anatomic. There is mild posterior calcaneal spurring. IMPRESSION: No fracture or dislocation. Mild posterior calcaneal spurring. MTDD
== END ==
LOC: M WUC 09:27
PROVIDERS: ATTEND Physician Assistant
DX: S93.401A Sprain of unspecified ligament of right ankle, initial encounter (principal); S93.601A Unspecified sprain of right foot, initial encounter; X58.XXXA Exposure to other specified factors, initial encounter; Y92.89 Other specified places as the place of occurrence of the external cause; Y93.9 Activity, unspecified; Y99.9 Unspecified external cause status

== ENCOUNTER → 2020-10-03 | Outpatient (REF) | payer OTHER ==
[2020-10-03 11:17] LABS: ALBUMIN 3.5 GM/DL (3.2-5.2); ALT/SGPT 19 U/L (12-78); BILIRUBIN,TOTAL 0.5 MG/DL (0.2-1.0); BLOOD UREA NITROGEN 13 MG/DL (7-18); CALCIUM LEVEL 8.7 MG/DL (8.5-10.1); CARBON DIOXIDE LEVEL 26 MEQ/L (21-32); CHLORIDE LEVEL 112 MEQ/L (98-107); CREATININE FOR GFR 0.81 MG/DL (0.55-1.30); FREE T4 0.94 NG/DL (0.76-1.46); GLOMERULAR FILTRATION RATE > 60.0 (>60); GLUCOSE, FASTING 96 MG/DL (70-100); POTASSIUM SERUM 4.3 MEQ/L (3.5-5.1); SODIUM LEVEL 142 MEQ/L (136-145); TOTAL PROTEIN 6.7 GM/DL (6.4-8.2)
[2020-10-03 11:53] LABS: HEMOGLOBIN A1c 5.6 %
== END ==
LOC: M PLALAB 08:01
PROVIDERS: ATTEND Nurse Practitioner Family
DX: R73.03 Prediabetes (principal); E66.9 Obesity, unspecified

== ENCOUNTER 2020-11-03 08:42 | Emergency (ER) | payer OTHER ==
[~2020-11-03] VITALS: Ht 172.7 cm; Wt 126.4 kg
[2020-11-03] MEDS ORDERED: NS 1,000 ML IV SCH (09:15)
[2020-11-03] MEDS ORDERED: ONDANSETRON 4MG/2ML VIAL IV ONE (09:15)
[2020-11-03 09:19] LABS: BASO # 0.1 10^3/uL (0.0-0.2); BASO % 0.7 % (0.0-1.0); EOS # 0.2 10^3/uL (0.0-0.5); EOS % 1.7 % (0.0-3.0); HEMATOCRIT 41.6 % (36.0-47.0); HEMOGLOBIN 13.3 g/dl (12.0-15.5); LYMPH # 3.8 10^3/uL (1.5-5.0); LYMPH % 31.8 % (24.0-44.0); MEAN CORPUSCULAR HEMOGLOBIN 28.3 pg (27.0-33.0); MEAN CORPUSCULAR VOLUME 88.5 fl (80.0-96.0); MONO % 7.9 % (0.0-5.0); NEUTROPHILS % 57.5 % (36.0-66.0); PLATELET COUNT, AUTOMATED 389 10^3/uL (150-450); WHITE BLOOD COUNT 12.1 10^3/uL (4.0-10.0)
[2020-11-03] MEDS: MORPHINE 4 MG/ML 1ML VIAL/SYRINGE (J2270) IV PRN ×2 (09:25→09:45)
--- NOTE | 2020-11-03 09:25 | REP ---
INDICATION: CHEST PAIN. COMPARISON: August 30, 2008.. TECHNIQUE: Portable sitting AP radiograph. FINDINGS: The lungs are well inflated and clear. The pleural angles are sharp. Heart size is normal. Pulmonary vasculature is not increased. Monitoring electrodes are seen. No significant bony abnormality IMPRESSION: Negative portable chest x-ray. <Electronically signed by Maksim Tolliver > 11/03/20 0967
[2020-11-03 09:48] LABS: ALBUMIN 3.7 GM/DL (3.2-5.2); ALT/SGPT 19 U/L (12-78); BILIRUBIN,DIRECT < 0.1 MG/DL (0.0-0.2); BILIRUBIN,TOTAL 0.2 MG/DL (0.2-1.0); BLOOD UREA NITROGEN 21 MG/DL (7-18); CALCIUM LEVEL 8.8 MG/DL (8.5-10.1); CARBON DIOXIDE LEVEL 21 MEQ/L (21-32); CHLORIDE LEVEL 111 MEQ/L (98-107); CREATININE FOR GFR 0.86 MG/DL (0.55-1.30); GLOMERULAR FILTRATION RATE > 60.0 (>60); GLUCOSE, FASTING 82 MG/DL (70-100); LIPASE 178 U/L (73-393); POTASSIUM SERUM 4.5 MEQ/L (3.5-5.1); SODIUM LEVEL 138 MEQ/L (136-145); TOTAL PROTEIN 7.3 GM/DL (6.4-8.2); TROPONIN I < 0.02 NG/ML (< 0.10)
[2020-11-03] MEDS ORDERED: GI COCKTAIL 50ML BTL(HYOSCYAMINE/MAALOX/LIDOCAINE VISCOUS)(1:3:1) PO ONE (10:00)
--- NOTE | 2020-11-03 10:47 | REP ---
INDICATION: pain. COMPARISON: Comparison CT study June 12, 2020. Comparison right upper quadrant sonography January 08, 2018.. TECHNIQUE: Transabdominal right upper quadrant scanning. FINDINGS: Scanning through the right upper quadrant of the abdomen demonstrates a normal sized, thin-walled gallbladder without evidence of stone or polyp. Common bile duct is normal measuring 0.4 cm in greatest diameter. There is a stable 2.2 x 1.9 x 1.7 cm cyst in the right hepatic lobe. No other focal liver lesion is seen. Liver size is normal. No pancreatic abnormality is observed. No right renal abnormality is seen. There is no evidence of ascites. The right kidney measures 11.1 x 4.7 x 4.7 cm. IMPRESSION: Small hepatic cyst again noted. Otherwise negative right upper quadrant sonography.. <Electronically signed by Maksim Tolliver > 11/03/20 1049
[2020-11-03 12:23] VITALS: BP 120/70
[2020-11-03] MEDS ORDERED: PEPC1TAB5 PO (12:28)
[2020-11-03] MEDS ORDERED: SUCR1SS PO (12:28)
--- NOTE | 2020-11-04 06:36 | ECGEPIP ---
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
== END 2020-11-03 13:07 | disposition home or self-care (01) ==
LOC: M ED 08:42
DX: K29.70 Gastritis, unspecified, without bleeding (principal); R11.0 Nausea; F32.9 Major depressive disorder, single episode, unspecified; F41.9 Anxiety disorder, unspecified; E28.2 Polycystic ovarian syndrome; Z88.0 Allergy status to penicillin; Z88.2 Allergy status to sulfonamides; F17.200 Nicotine dependence, unspecified, uncomplicated; Z79.899 Other long term (current) drug therapy; Z79.84 Long term (current) use of oral hypoglycemic drugs
CPT/HCPCS: 71045; 76705; 80048; 80076; 83690; 85025; 93005; 96361; 96374; 96375; 99285; J2270; J2405

== ENCOUNTER 2020-11-28 21:31 | Emergency (ER) | payer OTHER ==
[~2020-11-28] VITALS: Ht 172.7 cm; Wt 123.1 kg
[~2020-11-28 21:31] MED LIST changes: +PEPC1TAB5 PO; +SUCR1SS PO
[2020-11-28 21:32] VITALS: BP 134/70
[2020-11-28] MEDS ORDERED: NS 1,000 ML IV ONE (22:45)
[2020-11-28] MEDS ORDERED: ONDANSETRON 4MG/2ML VIAL IV ONE (22:45)
[2020-11-28] MEDS ORDERED: GI COCKTAIL 50ML BTL(HYOSCYAMINE/MAALOX/LIDOCAINE VISCOUS)(1:3:1) PO ONE (22:45)
[2020-11-28 22:50] LABS: BASO # 0.1 10^3/uL (0.0-0.2); BASO % 0.5 % (0.0-1.0); EOS # 0.2 10^3/uL (0.0-0.5); EOS % 1.6 % (0.0-3.0); HEMATOCRIT 41.5 % (36.0-47.0); LYMPH # 4.9 10^3/uL (1.5-5.0); LYMPH % 32.6 % (24.0-44.0); MEAN CORPUSCULAR HEMOGLOBIN 28.3 pg (27.0-33.0); MEAN CORPUSCULAR HGB CONC 31.3 g/dl (32.0-36.5); MEAN CORPUSCULAR VOLUME 90.4 fl (80.0-96.0); MONO # 0.9 10^3/uL (0.0-0.8); MONO % 5.7 % (0.0-5.0); NEUTROPHILS # 8.8 10^3/uL (1.5-8.5); NEUTROPHILS % 59.1 % (36.0-66.0); PLATELET COUNT, AUTOMATED 383 10^3/uL (150-450); RED BLOOD COUNT 4.59 10^6/uL (4.00-5.40); WHITE BLOOD COUNT 14.9 10^3/uL (4.0-10.0)
[2020-11-28 23:25] LABS: HCG, SERUM QUALITATIVE NEGATIVE (NEGATIVE)
[2020-11-28 23:28] LABS: ALBUMIN 3.6 GM/DL (3.2-5.2); ALT/SGPT 18 U/L (12-78); BILIRUBIN,DIRECT 0.1 MG/DL (0.0-0.2); BILIRUBIN,TOTAL 0.1 MG/DL (0.2-1.0); BLOOD UREA NITROGEN 17 MG/DL (7-18); CALCIUM LEVEL 8.7 MG/DL (8.5-10.1); CARBON DIOXIDE LEVEL 24 MEQ/L (21-32); CHLORIDE LEVEL 109 MEQ/L (98-107); CREATININE FOR GFR 1.06 MG/DL (0.55-1.30); GLOMERULAR FILTRATION RATE > 60.0 (>60); GLUCOSE, FASTING 101 MG/DL (70-100); LIPASE 164 U/L (73-393); SODIUM LEVEL 140 MEQ/L (136-145); TOTAL PROTEIN 7.2 GM/DL (6.4-8.2)
--- NOTE | 2020-11-28 23:55 | REPVR ---
PROCEDURE INFORMATION: Exam: US Abdomen, Limited; Right Upper Quadrant Exam date and time: 11/28/2020 11:15 PM Age: 35 years old Clinical indication: Abdominal pain; Acute; Additional info: Ruq abd pain TECHNIQUE: Imaging protocol: US abdomen. Real time ultrasound with image documentation. Limited exam focused on the right upper quadrant. COMPARISON: GALLBLADDER US 11/03/2020 10:16 AM FINDINGS: Liver: There is a 2 cm cyst of the right lobe of the liver. Normal appearing liver. Gallbladder: The gallbladder is fluid filled and there is no evidence of gallstones. The gallbladder wall is normal in size measuring 2 mm. Common bile duct: The common bile duct is normal in size measuring 6 mm and there is no intrahepatic biliary dilatation. Pancreas: The pancreas is not visualized secondary to bowel gas Right kidney: The right kidney measures 11.3 cm in length and there is no evidence of hydronephrosis. IMPRESSION: 1. No evidence of gallstones. 2. No evidence of biliary dilatation. Electronically signed by: Teto Ross On 11/28/2020 23:55:29 PM
[2020-11-29] MEDS ORDERED: ONDA4TAB6 PO (00:12)
== END 2020-11-29 00:29 | disposition home or self-care (01) ==
LOC: M ED 21:31
DX: R10.13 Epigastric pain (principal); D72.829 Elevated white blood cell count, unspecified; R11.0 Nausea; R56.9 Unspecified convulsions; Z88.0 Allergy status to penicillin; Z88.2 Allergy status to sulfonamides; Z79.899 Other long term (current) drug therapy; Z79.84 Long term (current) use of oral hypoglycemic drugs
CPT/HCPCS: 76705; 80048; 80076; 83690; 84703; 85025; 96361; 96374; 99283; J2405

== ENCOUNTER → 2020-12-06 | Outpatient (CLI) | payer OTHER ==
[~2020-12-06] MED LIST changes: +ONDA4TAB6 PO
--- NOTE | 2020-12-06 10:04 | REP ---
INDICATION: RIGHT UPPER QUAD ABD PAIN. COMPARISON: Comparison study August 14, 2017.. TECHNIQUE/RADIOTRACER AND DOSE: 6.6 mCi of Technetium-99m mebrofenin was injected and sequential anterior images are acquired. 60 minutes after the mebrofenin injection, the patient consumed 8 ounces Ensure and an additional 65 minutes of imaging was acquired. Regions of interest are plotted around the gallbladder. FINDINGS: The initial hepatocellular parenchymal uptake phase is normal and homogeneous. Intra- and extra-hepatic bile ducts are labeled by the 10 image. The gallbladder is first labeled on the 35-minute image. There is normal washout from the liver parenchyma into the gallbladder and small intestine on subsequent images. The gallbladder ejection fraction is 82%. Values greater than 35% are considered normal with this technique. IMPRESSION: Normal hepatobiliary scan and normal gallbladder ejection fraction. <Electronically signed by Maksim Tolliver > 12/06/20 1000
== END ==
LOC: M RAD 07:20
PROVIDERS: ATTEND Nurse Practitioner Family
DX: R10.11 Right upper quadrant pain (principal)
CPT/HCPCS: 78227; A9537

== ENCOUNTER → 2020-12-17 | Outpatient (CLI) | payer OTHER ==
[~2020-12-17] MED LIST changes: +CALC600T60 PO; +D31000TA2 PO; +TOPI100T9 PO
== END ==
LOC: M LABSMTC 10:01
PROVIDERS: ATTEND Anesthesiology
DX: Z01.812 Encounter for preprocedural laboratory examination (principal); Z20.822 Contact with and (suspected) exposure to COVID-19

== ENCOUNTER 2020-12-22 09:25 | Day surgery (SDC) | payer OTHER ==
[~2020-12-22] VITALS: Ht 172.7 cm; Wt 122.4 kg
[~2020-12-22 09:25] MED LIST changes: +LR 1,000 ML IV ONE
--- OUTSIDE RECORDS SUMMARY | 2020-12-22 09:30 | CCD | Continuity of Care Document ---
Author Author Krista HILL P.A.-C. Organization Unknown Address [address] [place] [id number] Phone [phone] Care Team Providers Care Seafood Packer Name Role Phone Galindo Galina Corrine AUTM [phone] Problems Active Problems Provider Date Migraine without aura, not refractory Salvador Zacarias M.D. On set: 03/19/2017 Localization-related epilepsy Salvador Zacarias M.D. Onset: Chronic tension-type headache Salvador Zacarias M.D. Onset: Obstructive sleep apnea syndrome Salvador Zacarias M.D. Onset: 05/20/2017 Social History Type Date Description Comments Sex Unknown Tobacco Use Start: Unknown Light tobacco smoker (10 or fewe r cigarettes/day) Allergies, Adverse Reactions, Alerts Active Allergies Reaction Severity Comments Date Penicillin 03/19/2017 Sulfamethoxazole / Trimethoprim 03/19/2017 Gabapentin fatigue 03/24/2018 Medications Active Medications SIG Qnty Indications Ordering Provide r Date Topiramate 100mg Tablets Take 1 Tablet By Mouth In The Evening AT Bedtime 90tabs Salvador Zacarias M.D. 07/22/2017 Immunizations Description No Information Available Vital Signs Date Vital Result Comment 06/20/2020 7:21am BP Systolic 118 mmHg BP Diastolic 70 mmHg Heart Rate 76 /min Respiratory Rate 16 /min 12/21/2019 8:08am BP Systolic 110 mmHg BP Diastolic 78 mmHg Heart Rate 68 /min Respiratory Rate 16 /min Results Description No Information Available Procedures Date Code Description Status 07/26/2020 29272 EEG Recording Awake & Asleep Com pleted 07/26/2020 67452 EEG Recording Awake & Asleep Com pleted 06/28/2020 76526 MRI Brain W/O Contrast Completed 06/28/2020 10715 MRI Brain W/O Contrast Completed Medical Devices Description No Information Available Encounters Description No Information Available Assessments Date Code Description Provider 12/21/2020 R40.4 Transient alteration of awarenes s Stacy Barrios.A.-C. 12/21/2020 R42 Dizziness and giddiness Stacy Barrios.A.-CCade 12/21/2020 R55 Syncope and collapse Miguelina PruettA.-CCade 12/21/2020 G43.809 Other migraine, not intractable, without status migrainosus Zoraida Hill P.A.-CCade 12/21/2020 M54.5 Low back pain Zoraida Hill P.A.-CCade 12/21/2020 G25.81 Restless legs syndrome Stacy Gutierrez.A.-CCade 07/26/2020 R55 Syncope and collapse Melita hussein M.D. 07/26/2020 R55 Syncope and collapse EEG 06/28/2020 R51 Headache Toi Capps 06/28/2020 R51 Headache MRI 06/28/2020 R40.4 Transient alteration of awarenes s Rico Mcintyre M.D. 06/28/2020 R40.4 Transient alteration of awarenes s MRI 06/28/2020 R42 Dizziness and giddiness Rico Tim M.D. 06/28/2020 R42 Dizziness and giddiness MRI Plan of Treatment 12/21/2020 - Stacy Barrios.A.-C.* R40.4 Transient alteration of awareness* Comments:* Not recurrent. MRI of the brain and EEG were normal. * R42 Dizziness and giddiness* Comments:* Resolved. * R55 Syncope and collapse* Comments:* No recurrent presyncopal spells. * G43.809 Other migraine, not intractable, without status migrainosus* Comments: * Controlled. * M54.5 Low back pain* Comments:* Not recurrent. * G25.81 Restless legs syndrome* Comments:* Stable. * Follow up:* 6 months. Functional Status Description No Information Available Mental Status Description No Information Available Referrals Refer to Reason for Referral Status Appt Date Rico Mcintyre M.D. Created [facility] [address] [place] [address] [phone] Rico Mcintyre M.D. Created [facility] [address] [place] [address] [phone]
--- OUTSIDE RECORDS SUMMARY | 2020-12-22 09:42 | CCD ---
Author Author [facility] Organization [facility] Address Unknown Phone Unavailable Support Name Relationship Address Phone [facility] Next Of Kin [address] [place] [id number] CAROLINA, ASIM Next Of Kin [address] [place] [address] JOYCE OMALLEY Next Of Kin [address] [place] [address] HAILEE MCKINNON Next Of Kin [address] [place] [address] [place] Next Of Kin [address] [address] [place] [address] RENEA KWONG Next Of Kin [address] [place] [address] HAILEE SPENCE Next Of Kin [address] [place] [address] Ward ALY Next Of Kin [address] [place] [address]01 HAILEE OMALLEY Next Of Kin [address] [address] [place] [address] [employer] Next Of Kin [address] [place] [id number] UE Next Of Kin Unknown Unavailable [employer] [facility] [place] [address] [place]OMES Next Of Kin [address] [place] [address] MICHELLE OSEGUERA Next Of Kin [address] [place] [id number] Ward LEY Next Of Kin [address] [place] [address] [place] [address]01 Sneha MAHMOOD Next [place] Kin [place] [id number] Renea Kwong ECON [address] [place] [address] Unavailable Hailee Omalley ECON Unknown Unavailable Care Team Providers Care Auto Electrical Technician Name Role Phone Trickey, J Zoraida PA Unavailable Unavailable Trickey, J Zoraida PA Unavailable Unavailable Trickey, J Zoraida PA Unavailable Unavailable Trickey, J Zoraida PA Unavailable Unavailable Trickey, J Zoraida PA Unavailable Unavailable Trickey, J Zoraida PA Unavailable Unavailable Trickey, J Zoraida PA Unavailable Unavailable Trickey, J Zoraida PA Unavailable Unavailable Trickey, J Zoraida PA Unavailable Unavailable Trickey, J Zoraida PA Unavailable Unavailable Trickey, J Zoraida PA Unavailable Unavailable Trickey, J Zoraida PA Unavailable Unavailable Trickey, J Zoraida PA Unavailable Unavailable Trickey, J Zoraida PA Unavailable Unavailable Trickey, J Zoraida PA Unavailable Unavailable Trickey, J Zoraida PA Unavailable Unavailable Trickey, J Zoraida PA Unavailable Unavailable Trickey, J Zoraida PA Unavailable Unavailable Trickey, J Zoraida PA Unavailable Unavailable Trickey, J Zoraida PA Unavailable Unavailable Trickey, J Zoraida PA Unavailable Unavailable Trickey, J Zoraida PA Unavailable Unavailable Trickey, J Zoraida PA Unavailable Unavailable Trickey, J Zoraida PA Unavailable Unavailable Trickey, J Zoraida PA Unavailable Unavailable Trickey, J Zoraida PA Unavailable Unavailable Trickey, J Zoraida PA Unavailable Unavailable Trickey, J Zoraida PA Unavailable Unavailable Trickey, J Zoraida PA Unavailable Unavailable Trickey, J Zoraida PA Unavailable Unavailable Trickey, J Zoraida PA Unavailable Unavailable Trickey, J Zoraida PA Unavailable Unavailable Trickey, J Zoraida PA Unavailable Unavailable Trickey, J Zoraida PA Unavailable Unavailable Trickey, J Zoraida PA Unavailable Unavailable Trickey, J Zoraida PA Unavailable Unavailable Trickey, J Zoraida PA Unavailable Unavailable Trickey, J Zoraida PA Unavailable Unavailable Trickey, J Zoraida PA Unavailable Unavailable Trickey, J Zoraida PA Unavailable Unavailable Trickey, J Zoraida PA Unavailable Unavailable Trickey, J Zoraida PA Unavailable Unavailable Trickey, J Zoraida PA Unavailable Unavailable Trickey, J Zoraida PA Unavailable Unavailable Trickey, J Zoraida PA Unavailable Unavailable Trickey, J Zoraida PA Unavailable Unavailable Trickey, J Zoraida PA Unavailable Unavailable Trickey, J Zoraida PA Unavailable Unavailable Trickey, J Zoraida PA Unavailable Unavailable Trickey, J Zoraida PA Unavailable Unavailable Trickey, J Zoraida PA Unavailable Unavailable Trickey, J Zoraida PA Unavailable Unavailable LETTIERE, A MARIXA PA Unavailable Unavailable LETTIERE, A MARIXA PA Unavailable Unavailable LETTIERE, A MARIXA PA Unavailable Unavailable LETTIERE, A MARIXA PA Unavailable Unavailable LETTIERE, A MARIXA PA Unavailable Unavailable LETTIERE, A MARIXA PA Unavailable Unavailable LETTIERE, A MARIXA PA Unavailable Unavailable LETTIERE, A MARIXA PA Unavailable Unavailable LETTIERE, A MARIXA PA Unavailable Unavailable LETTIERE, A MARIXA PA Unavailable Unavailable LETTIERE, A MARIXA PA Unavailable Unavailable LETTIERE, A MARIXA PA Unavailable Unavailable LETTIERE, A MARIXA PA Unavailable Unavailable LETTIERE, A MARIXA PA Unavailable Unavailable LETTIERE, A MARIXA PA Unavailable Unavailable LETTIERE, A MARIXA PA Unavailable Unavailable LETTIERE, A MARIXA PA Unavailable Unavailable LETTIERE, A MARIXA PA Unavailable Unavailable LETTIERE, A MARIXA PA Unavailable Unavailable LETTIERE, A MARIXA PA Unavailable Unavailable LETTIERE, A MARIXA PA Unavailable Unavailable LETTIERE, A MARIXA PA Unavailable Unavailable LETTIERE, A MARIXA PA Unavailable Unavailable LETTIERE, A MARIXA PA Unavailable Unavailable LETTIERE, A MARIXA PA Unavailable Unavailable LETTIERE, A MARIXA PA Unavailable Unavailable LETTIERE, A MARIXA PA Unavailable Unavailable LETTIERE, A MARIXA PA Unavailable Unavailable LETTIERE, A MARIXA PA Unavailable Unavailable ITZEL DASILVA MD Unavailable Unavailable ITZEL DASILVA MD Unavailable Unavailable ITZEL DASILVA MD Unavailable Unavailable ITZEL DASILVA MD Unavailable Unavailable ITZEL DASILVA MD Unavailable Unavailable ITZEL DASILVA MD Unavailable Unavailable ITZEL DASILVA MD Unavailable Unavailable ITZEL DASILVA MD Unavailable Unavailable ITZEL DASILVA MD Unavailable Unavailable ITZEL DASILVA MD Unavailable Unavailable ITZEL DASILVA MD Unavailable Unavailable ITZEL DASILVA MD Unavailable Unavailable ITZEL DASILVA MD Unavailable Unavailable ITZEL DASILVA MD Unavailable Unavailable ITZEL DASILVA MD Unavailable Unavailable ITZEL DASILVA MD Unavailable Unavailable ITZEL DASILVA MD Unavailable Unavailable ITZEL DASILVA MD Unavailable Unavailable ITZEL DASILVA MD Unavailable Unavailable ITZEL DASILVA MD Unavailable Unavailable ITZEL DASILVA MD Unavailable Unavailable ITZEL DASILVA MD Unavailable Unavailable ITZEL DASILVA MD Unavailable Unavailable ITZEL DASILVA MD Unavailable Unavailable ITZEL DASILVA MD Unavailable Unavailable ITZEL DASILVA MD Unavailable Unavailable ITZEL DASILVA MD Unavailable Unavailable ITZEL DASILVA MD Unavailable Unavailable ITZEL DASILVA MD Unavailable Unavailable ITZEL DASILVA MD Unavailable Unavailable Re-disclosure Warning The records that you are about to access may contain information from federally-assisted alcohol or drug abuse programs. If such information is present, then the following federally mandated warning applies: This information has been disclosed to you from records protected by federal confidentiality rules (42 CFR part 2). The federal rules prohibit you from making any further disclosure of this information unless further disclosure is expressly permitted by the written consent of the person to whom it pertains or as otherwise permitted by 42 CFR part 2. A general authorization for the release of medical or other information is NOT sufficient for this purpose. The Federal rules restrict any use of the information to criminally investigate or prosecute any alcohol or drug abuse patient.The records that you are about to access may contain highly sensitive health information, the redisclosure of which is protected by Article 27-F of the [facility] Public Health law. If you continue you may have access to information: Regarding HIV / AIDS; Provided by facilities licensed or operated by the [facility] Office of Mental Health; or Provided by the [facility] Office for People With Developmental Disabilities. If such information is present, then the following [facility] mandated warning applies: This information has been disclosed to you from confidential records which are protected by state law. State law prohibits you from making any further disclosure of this information without the specific written consent of the person to whom it pertains, or as otherwise permitted by law. Any unauthorized further disclosure in violation of state law may result in a fine or assisted sentence or both. A general authorization for the release of medical or other information is NOT sufficient authorization for further disc losure. Allergies and Adverse Reactions Type Description Substance Reaction Status Data Source(s ) Drug allergy Nicoderm CQ Nicotine rash/itching Active eCW1 ([facility]) Family History Family Member Name Family Member Gender Family Member Status Date o f Status Description Data Source(s) Unknown Unknown Problem MEDENT ([facility]) Encounters Encounter Providers Location Date Indications Data Source(s ) [place] [address] [facility] [address] 11/10/2020 12:00:00 AM EST eCW1 ([facility]) [place] [address] [facility] [address] 11/07/2020 12:00:00 AM EST eCW1 ([facility]) [place] [address] [facility] [address] 11/06/2020 12:00:00 AM EST eCW1 ([facility]) [place] [address] [facility] [address] 11/06/2020 12:00:00 AM EST eCW1 ([facility]) Outpatient [address] [facility] [place] [address] 10/06/2020 12:00:00 AM EST eCW1 ([facility]) Outpatient Attender: ITZEL DASILVA MD Physical Therapy 08:45:00 AM EDT MEDENT ([facility]) [place] [address] [facility] [address] 09/14/2020 12:00:00 AM EDT eCW1 [facility] Office Visit Attender: ITZEL DASILVA MD Physical Therapy 09:00:00 AM EDT MEDENT ([facility]) Outpatient Attender: MARIXA dietrich 08/08/2020 09:05:00 AM EDT MEDENT ([facility]) Outpatient Attender: Zoraida PARIS [facility] 06/20/2020 09:00:00 AM EDT MEDENT ([facility]) [place] [address] [facility] [address] 06/13/2020 12:00:00 AM EDT eCW1 ([facility]) [facility] [address] [facility] [place] [address] 04/21/2020 12:00:00 AM EDT eCW1 ([facility]) [facility] [place] [address] [facility] [address] 01/24/2020 12:00:00 AM EST eCW1 ([facility]) [facility] [place] [address] [facility] [address] 01/19/2020 12:00:00 AM EST eCW1 ([facility]) [address] [place] [address] 11/09/2019 12:00:00 AM EST eCW1 ([facility]) Medications Medication Brand Name Start Date Product Form Dose Route Admi nistrative Instructions Pharmacy Instructions Status Indications Reaction Description Data Source(s) pantoprazole 40 MG Delayed Release Oral Tablet [Proton ix] Protonix 40 MG Protonix 40 MG 11/07/2020 12:00:00 AM EST active Protonix 40 MG [facility] pantoprazole 40 MG Delayed Release Oral Tablet [Proton ix] Protonix 40 MG Protonix 40 MG 11/07/2020 12:00:00 AM EST active Protonix 40 MG [facility]) pantoprazole 40 MG Delayed Release Oral Tablet [Proton ix] Protonix 40 MG Protonix 40 MG 11/07/2020 12:00:00 AM EST active Protonix 40 MG [facility]) pantoprazole 40 MG Delayed Release Oral Tablet [Proton ix] Protonix 40 MG Protonix 40 MG 11/07/2020 12:00:00 AM EST active Protonix 40 MG [facility]) 24 HR Nicotine 0.875 MG/HR Transdermal Patch Nicotine Step 1 21 MG/24HR Nicotine Step 1 21 MG/24HR 10/06/2020 12:00:00 AM EST 1.0 {patch_to_skin} active Nicotine Step 1 21 MG/24HR [facility]CW[facility]) Fluoxetine 60 MG Oral Tablet FLUoxetine HCl 60 MG FLUoxetine HCl 60 MG 10/06/2020 12:00:00 AM EST 1.0 {tablet} active FLUoxetine HCl 60 MG eCW1 [facility]) pantoprazole 20 MG Delayed Release Oral Tablet [Proton ix] Protonix 20 MG Protonix 20 MG 10/06/2020 12:00:00 AM EST 1.0 {tablet} active Protonix 20 MG [facility]CW1 [facility]) Famotidine 40 MG Oral Tablet Famotidine 40 MG 01/19/2020 12:00:[address] active 1 tablet at bedtime eCW1 ([facility]) Famotidine 40 MG Oral Tablet Famotidine 40 MG 01/19/2020 12:00:00 A M EST 1.0 {tablet_at_bedtime} active Famotidine 4 0 MG eCW1 [facility]) Famotidine 20 MG Oral Tablet Famotidine 20 MG 01/19/2020 12:00:00 A M EST 1.0 {tablet_at_bedtime} active Famotidine 2 0 MG [facility]CW1 [facility]) Famotidine 40 MG Oral Tablet Famotidine 40 MG 01/19/2020 12:00:00 A M EST 1.0 {tablet_at_bedtime} active Famotidine 4 0 MG [facility]CW1 [facility]) Famotidine 20 MG Oral Tablet Famotidine 20 MG 01/19/2020 12:00:00 A M EST 1.0 {tablet_at_bedtime} active Famotidine 2 0 MG eCW1 [facility]) Famotidine 40 MG Oral Tablet Famotidine 40 MG 01/19/2020 12:00:[address] active 1 tablet at bedtime eCW1 [facility]) Famotidine 20 MG Oral Tablet Famotidine 20 MG 01/19/2020 12:00:00 A M EST 1.0 {tablet_at_bedtime} active Famotidine 2 0 MG eCW1 [facility]) Famotidine 40 MG Oral Tablet Famotidine 40 MG 01/19/2020 12:00:00 A M EST 1.0 {tablet_at_bedtime} active Famotidine 4 0 MG [facility]CW1 [facility]) Famotidine 20 MG Oral Tablet Famotidine 20 MG 01/19/2020 12:00:00 A M EST 1.0 {tablet_at_bedtime} active Famotidine 2 0 MG eCW1 [facility]) Insurance Providers Payer name Policy type / Coverage type Policy ID Covered libertarian ID Covered libertarian's relationship to andrade Policy Andrade Plan Information [facility] COMMUNITY PLAN [facility] [id number] SP [id number] [facility] COMM[facility] [id number] SP [id number] [facility] [id number] SP [id number] [facility] [id number] SP [id number] [facility] [id number] SP [id number] [facility] [id number] SP [id number] [facility] Commercial [id number] Self [id number] MEDICAID [id number] SP [id number] ANSI-Medicaid [id number] ANSI-Commercial [id number] ANSI-Not a Secondary Insurance [id number] ANSI-Medicaid [id number] ANSI-Medicaid [id number] [facility] (HMO) [id number] Self [id number] [facility] (O) [id number] Self [id number] [facility] (HMO) [id number] Self [id number] ANSI-Medicaid [id number] ANSI-Medicaid [id number] ANSI-Medicaid [id number] ANSI-Not a Secondary Insurance [id number] ANSI-Commercial [id number] ANSI-Medicaid [id number] ANSI-Medicaid [id number] ANSI-Medicaid [id number] ANSI-Commercial [id number] ANSI-Not a Secondary Insurance [id number] ANSI-Medicaid [id number] ANSI-Medicaid [id number] ANSI-Not a Secondary Insurance [id number] ANSI-Commercial [id number] ANSI-Medicaid [id number] ANSI-Medicaid [id number] ANSI-Commercial [id number] ANSI-Medicaid [id number] ANSI-Not a Secondary Insurance [id number] ANSI-Medicaid [id number] ANSI-Not a Secondary Insurance [id number] ANSI-Medicaid [id number] ANSI-Medicaid [id number] ANSI-Commercial [id number] ANSI-Medicaid [id number] ANSI-Not a Secondary Insurance [id number] ANSI-Medicaid [id number] ANSI-Medicaid [id number] ANSI-Medicaid [id number] ANSI-Commercial [id number] ANSI-Commercial [id number] ANSI-Medicaid [id number] ANSI-Not a Secondary Insurance [id number] ANSI-Medicaid [id number] ANSI-Medicaid [id number] ANSI-Medicaid [id number] ANSI-Commercial [id number] ANSI-Not a Secondary Insurance [id number] ANSI-Medicaid [id number] ANSI-Not a Secondary Insurance [id number] ANSI-Commercial [id number] ANSI-Medicaid [id number] ANSI-Medicaid [id number] ANSI-Commercial [id number] ANSI-Medicaid [id number] ANSI-Not a Secondary Insurance [id number] ANSI-Medicaid [id number] [facility] Commercial [id number] Self [id number] Medicaid [place] Medicaid [id number] Self [id number] ANSI-Medicaid [id number] ANSI-Not a Secondary Insurance [id number] ANSI-Commercial [id number] ANSI-Medicaid [id number] ANSI-Medicaid [id number] ANSI-Commercial [id number] ANSI-Medicaid [id number] ANSI-Commercial [id number] [facility] Commercial [id number] Self [id number] Community Plan - [facility] Commercial [id number] Self [id number] UNHC COMMUNITY PLAN MCDHMO [id number] SP [id number] [facility] Med[facility] Part B [id number] Family Dependent [id number] [facility] Health Maintenance Organization (HMO) [id number] Self [id number] [employer] Medigap Part B [id number] Family Dependent [id number] [facility] Health Maintenance Organization (HMO) [id number] Self [id number] [facility] Medigap Part B [id number] Family Dependent [id number] [facility] Health Maintenance Organization (HMO) [id number] Self [id number] [facility] Medigap Part B [id number] Family Dependent [id number] [facility] Health Maintenance Organization (HMO) [id number] Self [id number] [facility] Essential Plan Commercial [id number] Self [id number] [facility]) O [id number] S [id number] [facility] Medigap Part B [id number] Family Dependent [id number] [facility] Health Maintenance Organization (HMO) [id number] Self [id number] UN COMMUNITY PLAN MCDHMO [id number] SP [id number] [employer] Medigap Part B [id number] Family Dependent [id number] [facility] Health Maintenance Organization (HMO) [id number] Self [id number] [facility] Medigap Part B [id number] Family Dependent [id number] [facility] Health Maintenance Organization (HMO) [id number] Self [id number] [facility]) O [id number] S [id number] [facility]ARE [id number] SP [id number] [facility] Health Ins- Ppo/Epo Health Maintenance Organization (HMO) Self [facility] O [id number] S [id number] [employer] [facility] Maintenance Organization (HMO) Se lf BC/BS Of [facility] Commercial Self ZARINA ANTON PHY [id number] SP [id number] BLUE CROSS BLUE SHIELD-O/P [id number] 18 [id number] [facility] [place] [id number] HU2 [id number] [employer] P [id number] S [id number] [employer] [place] P [id number] S [id number] Surgeries/Procedures Procedure Description Date Indications Data Source(s) Ultrasound, Each 15 Min, Constant Attendance 0 12:00:00 AM EST [facility] ([facility] ) THERAPEUTIC PX 1/> AREAS EACH 15 MIN EXERCISES 12:00:00 AM EST [facility] ([facility] ) Ultrasound, Each 15 Min, Constant Attendance 0 12:00:00 AM EST [facility] ([facility] ) THERAPEUTIC PX 1/> AREAS EACH 15 MIN EXERCISES 12:00:00 AM EST [facility] ([facility] ) Ultrasound, Each 15 Min, Constant Attendance 0 12:00:00 AM EST [facility] ([facility] ) THERAPEUTIC PX 1/> AREAS EACH 15 MIN EXERCISES 12:00:00 AM EST [facility] ([facility] ) Ultrasound, Each 15 Min, Constant Attendance 0 12:00:00 AM EST [facility] ([facility] ) THERAPEUTIC PX 1/> AREAS EACH 15 MIN EXERCISES 12:00:00 AM EST [facility] ([facility] ) Ultrasound, Each 15 Min, Constant Attendance 0 12:00:00 AM EST [facility] ([facility] ) THERAPEUTIC PX 1/> AREAS EACH 15 MIN EXERCISES 12:00:00 AM EST [facility] ([facility] ) THERAPEUTIC PX 1/> AREAS EACH 15 MIN EXERCISES 12:00:00 AM EST [facility] ([facility] ) Ultrasound, Each 15 Min, Constant Attendance 0 12:00:00 AM EST [facility] ([facility] ) THERAPEUTIC PX 1/> AREAS EACH 15 MIN EXERCISES 12:00:00 AM EST [facility] ([facility] ) MANUAL THERAPY TQS 1/> REGIONS EACH 15 MINUTES 12:00:00 AM EST MEDENT ([facility] ) THERAPEUTIC PX 1/> AREAS EACH 15 MIN EXERCISES 12:00:00 AM EST MEDENT ([facility] ) MANUAL THERAPY TQS 1/> REGIONS EACH 15 MINUTES 12:00:00 AM EST MED[facility] ([facility] ) THERAPEUTIC PX 1/> AREAS EACH 15 MIN EXERCISES 12:00:00 AM EDT [facility] ([facility] ) MANUAL THERAPY TQS 1/> REGIONS EACH 15 MINUTES 12:00:00 AM EDT [facility] ([facility] ) Physical Therapy Eval - Low Complexity 09/27/2020 12:0 0:00 AM EDT [facility] ([facility] ) MRI Lower Extremity Any Joint 09/05/2020 12:00:00 AM E DT [facility] ([facility] ) ELECTROENCEPHALOGRAM W/REC AWAKE&ASLEEP 07/26/2020 12: 00:00 AM EDT MED[facility] ([facility] ) ELECTROENCEPHALOGRAM W/REC AWAKE&ASLEEP 07/26/2020 12: 00:00 AM EDT [facility] ([facility] ) MRI BRAIN BRAIN STEM W/O CONTRAST MATERIAL 06/28/2020 12:00:00 AM EDT MED[facility] ([facility] ) MRI BRAIN BRAIN STEM W/O CONTRAST MATERIAL 06/28/2020 12:00:00 AM EDT [facility]ENT ([facility] ) BEHAV CHNG SMOKING 3-10 MIN 01/19/2020 12:00:00 AM EST [facility] Results ID Date Data Source [id number] 12/17/2020 10:15:00 AM EST [facility] Name Value Range Interpretation Code Description Data Garima rce(s) Supporting Document(s) SARS coronavirus 2 RNA Not Detected [place] [place] This lab was ordered by [facility] and reported by [facility]. ID Date Data Source [id number] 10/23/2020 12:00:00 AM EST [facility] Name Value Range Interpretation Code Description Data Garima rce(s) Supporting Document(s) SARS coronavirus 2 RNA [Presence] in Res piratory specimen by DAVID with probe detection [facility] This lab was ordered by Deana Milan and reported by [facility]. ID Date Data Source CHLAMYDIA & GC DNA AMPLIFICAT 11/09/2019 12:00:00 AM EST eCW [facility] Name Value Range Interpretation Code Description Data Garima rce(s) Supporting Document(s) Chlamydia trachomatis rRNA [Presence] in Unspecified specimen by Probe and target amplification method NEGATIVE NEGATIVE CHLAMYDIA DNA AMPLIFICATION eCW1 ([facility]) Procedure Social History Code Duration Value Status Description Data Source(s ) Smoking 11/07/2020 12:00:00 AM EST Current Smoker completed Curre nt Smoker eCW1 ([facility]) Smoking 11/07/2020 12:00:00 AM EST Current Smoker completed Curre nt Smoker eCW1 ([facility]) Smoking 11/07/2020 12:00:00 AM EST Current Smoker completed Curre nt Smoker eCW1 ([facility]) Smoking 11/07/2020 12:00:00 AM EST Current Smoker completed Curre nt Smoker eCW1 ([facility]) Smoking 10/06/2020 12:00:00 AM EST Current Smoker completed Curre nt Smoker eCW1 ([facility]) Smoking 01/19/2020 12:00:00 AM EST Current Smoker completed Curre nt Smoker eCW1 ([facility]) Smoking 01/19/2020 12:00:00 AM EST Current Smoker completed Curre nt Smoker eCW1 ([facility]) Vital Signs ID Date Data Source UNK Name Value Range Interpretation Code Description Data Source(s) Diastolic blood pressure 70 mm[Hg] 70 mm[Hg] eCW1 [facility]) Systolic blood pressure 130 mm[Hg] 130 mm[Hg] e CW1 ([facility]) Body temperature 98.3 [degF] 98.3 [degF] eCW1 ( [facility]) Respiratory rate 20 /min 20 /min eCW1 ([facility]) Heart rate 80 /min 80 /min eCW1 ([facility]) Body mass index (BMI) [Ratio] 42.89 kg/m2 42.89 kg/m2 eCW1 ([facility]) Body height 67.5 [in_i] 67.5 [in_i] eCW1 ([facility]) Body weight 278 [lb_av] 278 [lb_av] eCW1 ([facility]) Diastolic blood pressure 86 mm[Hg] 86 mm[Hg] eCW1 [facility]) Systolic blood pressure 128 mm[Hg] 128 mm[Hg] e CW1 ([facility]) Body temperature 97.3 [degF] 97.3 [degF] eCW1 ( [facility]) Respiratory rate 18 /min 18 /min eCW1 ([facility]) Heart rate 99 /min 99 /min eCW1 ([facility]) Body mass index (BMI) [Ratio] 42.03 kg/m2 42.03 kg/m2 eCW1 ([facility]) Body height 67.5 [in_i] 67.5 [in_i] eCW1 ([facility]) Body weight 272.4 [lb_av] 272.4 [lb_av] eCW1 ([facility]) Body temperature 97.1 [degF] 97.1 [degF] MEDENT ([facility]) Body mass index (BMI) [Ratio] 40.8 kg/m2 40.8 k g/m2 MEDENT ([facility]) Body weight 268.12 [lb_av] 268.12 [lb_av] MEDEN T ([facility]) Body height 68 [in_i] 68 [in_i] MEDENT ([facility]) 5'8" Body temperature 97.1 [degF] 97.1 [degF] MEDENT ([facility] ) Body mass index (BMI) [Ratio] 39.5 kg/m2 39.5 k g/m2 MEDENT ([facility]) Body height 68 [in_i] 68 [in_i] MEDENT ([facility]) 5'8" Body weight 260.00 [lb_av] 260.00 [lb_av] MEDEN T ([facility]) Body temperature 97.5 [degF] 97.5 [degF] MEDENT ([facility]) Oxygen saturation in Arterial blood by Pulse oximetry 97 % 97 % MEDENT ([facility]) Heart rate 73 /min 73 /min MEDENT ([facility]) Diastolic blood pressure 79 mm[Hg] 79 mm[Hg] MEDENT ([facility]) Systolic blood pressure 116 mm[Hg] 116 mm[Hg] M EDENT ([facility]) Respiratory rate 16 /min 16 /min MEDENT ( [facility] ) Heart rate 76 /min 76 /min MEDENT ([facility] ) Diastolic blood pressure 70 mm[Hg] 70 mm[Hg] MEDENT ([facility] ) Systolic blood pressure 118 mm[Hg] 118 mm[Hg] M EDENT ([facility] ) Diastolic blood pressure 78 mm[Hg] 78 mm[Hg] eCW1 [facility] Systolic blood pressure 116 mm[Hg] 116 mm[Hg] e CW1 ([facility]) Body temperature 98.0 [degF] 98.0 [degF] eCW1 ( [facility]) Respiratory rate 18 /min 18 /min eCW1 ([facility]) Heart rate 94 /min 94 /min eCW1 ([facility]) Body mass index (BMI) [Ratio] 39.81 kg/m2 39.81 kg/m2 eCW1 [facility]) Body height 67.5 [in_us] 67.5 [in_us] eCW1 ([facility]) Body weight Measured 258.0 [lb_av] 258.0 [lb_av ] eCW1 [facility]) Respiratory rate 16 /min 16 /min MEDENT ( [facility] ) Heart rate 68 /min 68 /min MEDENT ([facility]) Diastolic blood pressure 78 mm[Hg] 78 mm[Hg] MEDENT ([facility]) Systolic blood pressure 110 mm[Hg] 110 mm[Hg] M EDENT ([facility] ) Diastolic blood pressure 72 mm[Hg] 72 mm[Hg] eCW1 [facility]) Systolic blood pressure 12 mm[Hg] 12 mm[Hg] e CW1 ([facility]) Body mass index (BMI) [Ratio] 29 kg/m2 29 kg/ m2 eCW1 [facility]) Body height 67.5 [in_us] 67.5 [in_us] eCW1 ([facility]) Body weight Measured 249 [lb_av] 249 [lb_av] eC W1 [facility] Patient Treatment Plan of Care Planned Activity Planned Date Details Description Data Source (s) pantoprazole 40 MG Delayed Release Oral Tablet [Proton ix] 11/07/2020 12:00:00 AM EST eCW1 ([facility]) pantoprazole 40 MG Delayed Release Oral Tablet [Proton ix] 11/07/2020 12:00:00 AM EST eCW1 ([facility]) pantoprazole 40 MG Delayed Release Oral Tablet [Proton ix] 11/07/2020 12:00:00 AM EST eCW1 ([facility]) pantoprazole 40 MG Delayed Release Oral Tablet [Proton ix] 11/07/2020 12:00:00 AM EST eCW1 ([facility]) pantoprazole 20 MG Delayed Release Oral Tablet [Proton ix] 10/06/2020 12:00:00 AM EST eCW1 ([facility]) Fluoxetine 60 MG Oral Tablet 10/06/2020 12:00:00 AM EST [facility]) 24 HR Nicotine 0.875 MG/HR Transdermal Patch 10/06/2020 12:00:00 AM EST eCW1 [facility]) Famotidine 20 MG Oral Tablet 01/19/2020 12:00:00 AM EST eCW1 ([facility]) Famotidine 20 MG Oral Tablet 01/19/2020 12:00:00 AM EST eCW1 ([facility]) Famotidine 20 MG Oral Tablet 01/19/2020 12:00:00 AM EST eCW1 ([facility]) Famotidine 20 MG Oral Tablet 01/19/2020 12:00:00 AM EST eCW1 ([facility]) Famotidine 40 MG Oral Tablet 01/19/2020 12:00:00 AM EST eCW1 ([facility]) Famotidine 40 MG Oral Tablet 01/19/2020 12:00:00 AM EST eCW1 ([facility]) Famotidine 40 MG Oral Tablet 01/19/2020 12:00:00 AM EST eCW1 [facility]) Famotidine 40 MG Oral Tablet 01/19/2020 12:00:00 AM EST eCW1 [facility])
[2020-12-22] MEDS ORDERED: MIDAZOLAM INJ 2MG/2ML VIAL (J2250 PER 1MG) As Ordered ONE (10:16)
[2020-12-22] MEDS ORDERED: fentaNYL 250 MCG/5 ML INJECTION (J3010) As Ordered ONE (10:16)
[2020-12-22] MEDS ORDERED: KETOROLAC 60MG 2ML VIAL As Ordered ONE (10:17)
[2020-12-22] MEDS ORDERED: ONDANSETRON 4MG/2ML VIAL As Ordered ONE (10:17)
[2020-12-22] MEDS ORDERED: propofoL 200 MG/20 ML VIAL As Ordered ONE (10:17)
[2020-12-22] MEDS ORDERED: dexameTHASONE 4 MG/ML 1ML VIAL (J1100 PER 1MG) As Ordered ONE (10:17)
[2020-12-22] MEDS ORDERED: ACETAMINOPHEN 1000MG 100ML IV BTL (OFIRMEV) (J0131 PER 10MG) As Ordered ONE (10:17)
[2020-12-22] MEDS ORDERED: LIDOCAINE 2% 100MG/5ML SDV (FOR ANES.) As Ordered ONE (10:17)
[2020-12-22] MEDS ORDERED: ePHEDrine SULFATE 25 MG/5 ML(5MG/ML) SYRINGE As Ordered ONE (10:17)
[2020-12-22] MEDS ORDERED: SUGAMMADEX SODIUM 500 MG/5 ML VIAL (BRIDION) As Ordered ONE (10:17)
[2020-12-22] MEDS ORDERED: ROCURONIUM BROMIDE 50 MG/5 ML VIAL As Ordered ONE (10:17)
[2020-12-22] MEDS ORDERED: BUPIVACAINE/EPIN 0.25% 30 ML VIAL As Ordered ONE (11:10)
[2020-12-22] MEDS ORDERED: fentaNYL 100 MCG/2 ML INJECTION (J3010) As Ordered ONE (12:41)
[2020-12-22] MEDS: fentaNYL 100 MCG/2 ML INJECTION (J3010) IV PRN ×4 (12:44→13:01)
[2020-12-22] MEDS ORDERED: oxyCODONE 5MG TAB As Ordered ONE (12:49)
[2020-12-22] MEDS ORDERED: HYDROMORPHONE HCL 0.5 MG/ 0.5 ML SYRINGE (J1170 PER 1) IV PRN (13:00)
[2020-12-22] MEDS ORDERED: ONDANSETRON 4MG/2ML VIAL IV PRN (13:00)
[2020-12-22] MEDS ORDERED: oxyCODONE 5MG TAB PO PRN (13:00)
[2020-12-22] MEDS ORDERED: NORCO, ANEXSIA 5/325MG TABLET (HYDROcodone/ACETAMINOPHEN) PO PRN (13:00)
[2020-12-22] MEDS ORDERED: LR 1,000 ML IV SCH (13:00)
[2020-12-22 13:25] VITALS: BP 134/77
--- NOTE | 2020-12-22 19:49 | RO ---
OPERATIVE NOTE DATE OF OPERATION: 12/22/2020 PREOPERATIVE DIAGNOSIS: Biliary dyskinesis. POSTOPERATIVE DIAGNOSIS: Biliary dyskinesis. PROCEDURE: Robotic cholecystectomy. SURGEON: Rodolfo Foster MD HOTEL RESERVATIONIST: Grace Sal ANESTHESIA: General ESTIMATED BLOOD LOSS: 5 ml INDICATION FOR PROCEDURE: The patient is a 35-year-old female who presents with right upper quadrant pain and signs and symptoms were consistent with cholecystitis. Ultrasound and HIDA were normal. However, she could very well have sphincter biliary dysfunction. Because of that, I gave her the option of elective robotic cholecystectomy. Risks and benefits of the procedure not limited to, but included bleeding, infection, hernia formation, damage to surrounding structures and possibility of not curing her symptoms were discussed in detail with the patient. Informed consent was obtained and procedure was planned. DESCRIPTION OF PROCEDURE: The patient was brought back to operating room 7. After sufficient sedation, the abdomen was sterilely prepped and draped. Next, time-out was done to confirmed proper patient and proper procedure. Following that, an 8 mm incision in the left upper quadrant, Veress needle inserted and the abdomen was insufflated to 15 mmHg. The Veress needle was then removed and the 9 mm Optiview port was used to gain access to the abdomen. Once the abdomen was entered, three more ports were placed, 2 in the right upper quadrant and 1 in the right upper lateral abdomen. The robot was then docked to the ports. Next, from the console, the fundus of the gallbladder was elevated up to the right shoulder. There were multiple omental adhesions all in the entire length of the gallbladder body. Those were all carefully dissected free using blunt and sharp dissection. Once that was completed, the fundus was elevated even higher. The cystic duct and cystic artery were dissected free using combination of blunt and sharp dissection. They were both then doubly clipped and cut. The gallbladder was dissected from the gallbladder fossa, electrocautery and placed intact inside of a 5 mm Endo Catch bag. The gallbladder was then brought out through the right lateral port site. The abdomen was then desufflated and skin incision was closed with 40 Vicryl subcuticular sutures. The abdomen was cleaned and dried and Steri-Strips and 4 x 4 and tape were applied and this is the end of the procedure.
== END 2020-12-22 14:00 | disposition home or self-care (01) ==
LOC: M SDC 09:25
PROVIDERS: ATTEND Surgery
DX: K82.8 Other specified diseases of gallbladder (principal); K21.9 Gastro-esophageal reflux disease without esophagitis; F17.218 Nicotine dependence, cigarettes, with other nicotine-induced disorders; E28.2 Polycystic ovarian syndrome; Z88.0 Allergy status to penicillin; Z88.2 Allergy status to sulfonamides; Z79.899 Other long term (current) drug therapy
CPT/HCPCS: 47562; 88304; J0131; J1100; J1170; J1885; J2250; J2405; J3010; S2900

== ENCOUNTER 2021-06-06 17:32 | Emergency (ER) | payer OTHER ==
[~2021-06-06] VITALS: Ht 172.7 cm; Wt 118.2 kg
[~2021-06-06 17:32] MED LIST changes: -LR 1,000 ML IV ONE
[2021-06-06 17:33] VITALS: BP 120/78
== END 2021-06-06 20:01 | disposition left against medical advice (07) ==
LOC: M ED 17:32
DX: Z53.21 Procedure and treatment not carried out due to patient leaving prior to being seen by health care provider (principal)

== ENCOUNTER 2021-10-13 08:25 | Emergency (ER) | payer BC, OTHER ==
[~2021-10-13] VITALS: Ht 175.3 cm; Wt 124.0 kg
[2021-10-13] MEDS ORDERED: CLAR10CA3 PO (08:32)
[2021-10-13] MEDS ORDERED: HYDR-643 (08:32)
--- OUTSIDE RECORDS SUMMARY | 2021-10-13 08:36 | CCD ---
Author Author [facility] Organization [facility] Address Unknown Phone Unavailable Care Team Providers Care Sieve Grader Tender Name Role Phone Galina Galindo Unavailable PROBLEMS Type Condition ICD9-CM Code [id number] Code Onset Dates Condition S tatus W/U Status Risk SNOMED Code Notes Problem Hypercholesteremia E78.0 Active confirmed 1 0060242 Problem Obesity (BMI 30-39.9) E66.9 Active confirmed 480643691 Problem Binge eating disorder F50.8 Active confirmed 604887600 Problem Anxiety F41.9 Active confirmed 26376714 Problem Migraine with aura and without status migrainosu s, not intractable G43.109 Active confirmed 0903560 Problem BMI 38.0-38.9,adult Z68.38 Active confirmed 107866632 Problem Liver cyst K76.89 Active confirmed 49585700 Problem Gastroesophageal reflux disease without esophagitis K21.9 Active confirmed 129784604 Problem Pure hypercholesterolemia E78.00 Active confirmed 560255918 Problem Mild intermittent asthma with acute exacerbation J 45.21 Active confirmed 722252680 Problem BMI 39.0-39.9,adult Z68.39 Active confirmed 821496346 Problem Hypercholesterolemia E78.00 Active confirmed 72068779 Problem Cigarette nicotine dependence without complication F17.210 Active confirmed 78107755 Problem Vitamin D deficiency E55.9 Active confirmed 58383593 Problem Meningioma D32.9 Active confirmed 676190127 Problem BMI 36.0-36.9,adult Z68.36 Active confirmed 521914636 Problem Tobacco use disorder Z72.0 Active confirmed 443796800 Problem PCOS (polycystic ovarian syndrome) E28.2 Activ e confirmed 92560704 Problem Pre-diabetes R73.03 Active confirmed 0889212 02 Problem Allergic rhinitis, unspecified seasonality, unspecifie d trigger J30.9 Active confirmed 80103296 Problem Severe obesity (BMI >= 40) E66.01 Active confirmed 799372094 Problem Mild intermittent asthma without complication J45. 20 Active confirmed 994265258 ALLERGIES Allergen (clinical drug ingredient) Drug/Non Drug Allergy do cumented on EMR Reaction Allergy Type Onset Date Status Sulfa (for allergy use only) Hives Non Drug Allergy Active nicotine Nicoderm CQ([facility] Code:[address]-38) rash/itching Drug Raimundo rgy Active Penicillin (For Allergies Use Only) hives Drug Allerg y Active ENCOUNTERS from 1984 to 2021-09-04 Encounter Location Date Provider Diagnosis [address] [id number] [facility] [phone] [place] [address] Aug, Galina Galindo IMMUNIZATIONS Vaccine Route Administration Date Status COVID-19 dose #2 given elsewhere Unspecified Unknown April 13, 2021 Administered COVID-19 dose #1 given elsewhere Unspecified Unknown April 13, 2021 Administered Influenza 18 yrs & older Flublok IM Intramuscular Oct 15, 2019 Administered Influenza 6mo & up Fluzone IM Intramuscular Oct 07, 2018 Admi nistered Influenza 6mo & up Fluzone Unknown Oct 01, 2017 Other s SOCIAL HISTORY Tobacco Use: Social History Observation Description Date Details (start date - stop date) Current Smoker Sex Assigned At : Social History Observation Description Sex Assigned At Unknown Audit Question Answer Notes Total Score: 1 Interpretation: Alcohol Education Language: Question Answer Notes Languages spoken: Indonesian Faith: Question Answer Notes Faith 33 None Sexual Hx: Question Answer Notes Had sex in the last 12 months (vaginal, oral, or anal)? Yes LMP: 04/14/2017 Have you ever had an STD? Yes with Men only Use protection? No Chlamydia? Yes Drug and Alcohol Question Answer Notes Total Score: 0 Interpretation: No problems reported Alcohol Screening: Question Answer Notes Did you have a drink containing alcohol in the past year? Ye s Points 1 Interpretation Negative How often did you have six or more drinks on one occas ion in the past year? Never (0 points) How many drinks did you have on a typica l day when you were drinking in the past year? 1 or 2 (0 points) How often did you have a drink containing alcohol in t he past year? Monthly or less (1 point) BMI Care Goal Follow-Up Question Answer Notes Above Normal BMI Follow-Up Dietary management educatio n, guidance, and counseling, Giving encouragement to exercise Tobacco Use: Question Answer Notes Are you a: current smoker Smoking Cessation Information Given 06/11/2021 Patient counseled on the dangers of tobacco use and urged to quit: 06/11/2021 How many cigarettes a day do you smoke? 11-20 Are you interested in quitting? Thinking about quitting Counseled the patient on smoking cessation, education provid ed 06/11/2021 REASON FOR REFERRAL No Information VITAL SIGNS No information MEDICATIONS Medication SIG (Take, Route, Frequency, Duration) Notes Start Da te End Date Status Iron 325 (65 Fe) MG 1 tablet Orally Once a day for 30 day(s) Active metroNIDAZOLE 500 MG 1 tablet Orally Twice a day for 7 day(s) Aug, Active Chantix Starting Month Marlon 0.5 MG X 11 & 1 MG X 42 as directed Orally for 30 days May, Not-Taking Loratadine 10 MG 1 tablet Orally Once a day for 30 days Aug, Active Herbal Laxative 1 tab orally Daily as needed Active Tums 500 MG 1 tablet Orally as needed Jul, Active Vitamin D 2000 UNIT 1 tablet Orally Once a day Active FLUoxetine HCl 40 MG 1 capsule Orally Once a day for 30 day(s) May, Active Topamax 50 MG 2 tabs Orally before bedtime Ali Active Ventolin HFA 108 (90 Base) MCG/ACT 2 puffs as needed I nhalation every 6 hrs for 30 days Oct, Active metFORMIN HCl 500MG 2 tabs with meals Orally Daily for 90 day(s) Active Diflucan 150 MG 1 tablet Orally once for 1 day(s) Aug, Active Multivitamin - 1 tablet Orally Once a day for 30 day(s) Active Nicotine Step 1 21 MG/24HR 1 patch to skin Transdermal Once a day for 30 day(s) Not-Taking Vitamin B12 500 MCG 1 tablet Orally Once a day for 30 day(s) Active PROCEDURES No Information RESULTS No Results REASON FOR VISIT [facility] needs more information MEDICAL (GENERAL) HISTORY Type Description Date Medical History tobacco use Medical History endometriosis/PCOS Medical History obesity- Nutrition- Feed the Soul Medical History Anxiety- on meds prev- Zoloft Medical History Binge eating disorder Medical History obesity Surgical History laprascopic surgeries x 2 for endometrio sis, ovarian cysts Surgical History hysterectomy and left oopherectomy - [facility] 05/22/2018 Surgical History lap cholecystectomy - [facility] 01/21 Hospitalization History surgery-hysterectomy 05/2018 Goals Section No Information Health Concerns No Information MEDICAL EQUIPMENT No Information MENTAL STATUS No Information FUNCTIONAL STATUS No Information ASSESSMENTS No Information PLAN OF TREATMENT Medication Medication Name Sig Start Date Stop Date Diflucan 150 MG 1 tablet Orally once for 1 day(s) Aug, metroNIDAZOLE 500 MG 1 tablet Orally Twice a day for 7 day(s) Aug, Next Appt Details Provider Name:Diamond Mcgarry, 2022-01-22 09:00:00 AM, [address] [facility], , [place], [address], Insurance Providers Payer Name Payer Address Payer Phone Insured Name Patient Relati onship to Insured Coverage Start Date Coverage End Date [facility] [employer] [facility] [address] [facility] [id number] [phone] CALEB MAHMOOD self
--- OUTSIDE RECORDS SUMMARY | 2021-10-13 08:36 | CCD | Continuity of Care Document ---
Author Author [facility] [place] Organization Unknown Address [address] [place] [id number] Phone [phone] Care Team Providers Care Game And Fish Protector Name Role Phone Galina Galindo DISC INSPECTOR AUTM [phone] [facility] [phone] Nabor Sheffield MD AUTM [phone] Problems Description No Information Available Social History Type Date Description Comments Sex Unknown ETOH Use Occasionally consumes alcohol Tobacco Use Start: Unknown Patient is a current smoker, smo kes some days 1PPD Tobacco Use Start: Unknown The Patient Has Never Vaped Smoking Status Reviewed: 08/08/20 The Patient Has Never Vaped Allergies, Adverse Reactions, Alerts Active Allergies Criticality Reaction | Severity Comments Date Penicillin Unable to assess criticality Hives 02/25/2019 Sulfa Unable to assess criticality Hives 02/25/2019 Medications Active Medications SIG Qnty Indications Ordering Provide r Date Prednisone 20mg Tablets take one tablet twice a day x 5 days 10tabs J01.10 Toi Baker JR. 07/27/2021 Azithromycin 250mg Tablets take two tablets day one, one tablet day 2-5 6tabs J20.9 Taiwo diez JR., M.D. 07/27/2021 Metformin HCL ER (Mod) 1000mg Tablets ER 24HR Unknown Fluoxetine HCL 40mg Capsules Unknown Topamax 50mg Tablets twice a day Unknown Vitamin D 2000Unit Tablets 2 by mouth every day Unknown Calcium 500 + D [id number] Tablets Unknown Multivitamin Unknown Albuterol Fha Unknown Immunizations Description No Information Available Vital Signs Date Vital Result Comment 07/27/2021 11:49am BP Systolic 110 mmHg BP Diastolic 76 mmHg Heart Rate 79 /min Respiratory Rate 16 /min O2 % BldC Oximetry 97 % Body Temperature 98.0 F Weight 265.00 lb Height 68 inches 5'8" BMI (Body Mass Index) 40.3 kg/m2 Pain Level 6 08/08/2020 9:00am BP Systolic 116 mmHg BP Diastolic 79 mmHg Heart Rate 73 /min O2 % BldC Oximetry 97 % Body Temperature 97.5 F Weight 260.00 lb Height 68 inches 5'8" BMI (Body Mass Index) 39.5 kg/m2 Pain Level 2 Results Description No Information Available Procedures Date Code Description Status 07/27/2021 51966 Office/Outpatient Established Lo w MDM 20-29 Min Completed Medical Devices Description No Information Available Encounters Type Date Location Provider Dx Diagnosis Office Visit 07/27/2021 1:50p Main Office [facility] J01 .10 Acute frontal sinusitis, unspecified J20.9 Acute bronchitis, unspecifie d Z20.828 Contact w and exposure to ot h viral communicable diseases Z72.0 Tobacco use Assessments Date Code Description Provider 07/27/2021 J01.10 Acute frontal sinusitis, unspeci fied [facility] 07/27/2021 J20.9 Acute bronchitis, unspecified [place] [facility] 07/27/2021 Z20.828 Contact with and (logan spected) exposure to other viral communicable diseases [facility] 07/27/2021 Z72.0 Tobacco use [facility] Plan of Treatment No Information Available Functional Status Description No Information Available Mental Status Description No Information Available Referrals Description No Information Available
--- OUTSIDE RECORDS SUMMARY | 2021-10-13 08:36 | CCD | Continuity of Care Document ---
Author Author Krista MEJIA DPManuel Organization Unknown Address [address] [place] [address], [facility] [address] [place] [address] Phone [phone] Care Team Providers Care Naval Science Teacher Name Role Phone Galindo EYELET MAKER, Galina RUCKER [phone] Problems Active Problems Provider Date Plantar fascial fibromatosis Nasir Mejia DPM Onset: 12/2020 Calcaneal spur Nasir Mejia DPM Onset: 05/01/2021 Calcaneal spur Nasir Mejia DPM Onset: 05/01/2021 Social History Type Date Description Comments Sex Unknown ETOH Use Currently consumes alcohol a dri nk weekly Tobacco Use Start: Unknown Patient is a current smoker, smo kes every day smokes 1 pack daily Allergies and adverse reactions Active Allergies Criticality Reaction | Severity Comments Date Penicillin V Unable to assess criticality 05/01/2021 Sulfamethoxazole / Trimethoprim Unable to assess criticality 05/01/2021 Gabapentin Unable to assess criticality 05/01/2021 Medications Active Medications SIG Qnty Indications Ordering Provide r Date Diclofenac Sodium 1% Gel apply to 1 gram to feet 2-3 times daily 100gm Nasir Mejia DPM 12/2020 Hydrocodone Bitartrate/Acetaminophen 5-325mg Tablets Unknown Ketorolac Tromethamine 10mg Tablet s Take 1 Tablet By Mouth Every 6 Hours as Needed For Pain Unknown Nitrofurantoin Monohydrate/Macrocrystals 100mg Capsules Take 1 Capsule By Mouth Twice Daily Unkno ferdinand Fluconazole 150mg Tablets Hank Obrien,Pranav Flublok Quadrivalent 0.5ml Soln Prefill Syringe Moehs MBlake Wills 0 Pantoprazole Sodium 20mg Tablets Beatrice Gallagher PA-C Famotidine 20mg Tablets Take 1 Tablet By Mouth Once Daily Unknown Sucralfate 1gm Tablets Dissolve 1 Tablet And Take By Mouth 4 Times A Day 1 Hour Before Meal(S) And AT Bedtime On An Empty Stomach Unknown Ondansetron 4mg Tablets Dispers Unknown Pantoprazole Sodium 40mg Tablets D R Take 1 Tablet By Mouth Once Daily Before Morning Meal. Unknown Nicotine 21mg/24HR Patches 24HR Apply 1 Patch Topically To Skin Once Daily Unknown Topiramate 100mg Tablets Zoraida Parikh Fluoxetine HCL 20mg Capsules Take 3 Capsules By Mouth AT Bedtime Unknown Albuterol Sulfate HFA 108(90Base) mcg/Act Aerosol Inhale 2 Puffs By Mouth Every 6 Hours as Needed Unknown Metformin HCL 500mg Tablets Take 2 Tablets By Mouth Once Daily With Meals Unknown 0 Loratadine 10mg Tablets Galindo EYELET MAKERGalina Bupropion Hydrochloride ER (XL) 150mg Tablets ER 24HR Tabiona EYELET MAKER,Galina Bupropion Hydrochloride ER (XL) 300mg Tablets ER 24HR Tabiona EYELET MAKER,Galina Immunizations Description No Information Available Vital Signs Date Vital Result Comment 05/01/2021 7:22am Height 68 inches 5'8" Weight 263.00 lb BP Systolic 110 mmHg BP Diastolic 80 mmHg Heart Rate 76 /min BMI (Body Mass Index) 40.0 kg/m2 Results Description No Information Available Procedures Date Code Description Status 08/16/2021 22175 Office/Outpatient Established SF MDM 10-19 Min Completed 06/27/2021 61636 Office/Outpatient Established SF MDM 10-19 Min Completed 05/01/2021 80129 Office/Outpatient New Low MDM 30 -44 Minutes Completed 05/01/2021 43214 X-Ray Foot Complete Completed 05/01/2021 72582 X-Ray Foot Complete Completed 05/01/2021 36449 Strapping Foot Or Ankle Complete d 05/01/2021 75084 Strapping Foot Or Ankle Complete d Medical Devices Description No Information Available Encounters Type Date Location Provider Dx Diagnosis Office Visit 08/16/2021 10:15a [place] [facility] Nasir Mejia DPM M72.2 Plantar fascial fibromatosis Office Visit 06/27/2021 9:45a [place] [facility] Nasir Mejia DPM M72.2 Plantar fascial fibromatosis Office Visit 05/01/2021 8:30a [place] [facility] Nasir Mejia DPM M72.2 Plantar fascial fibromatosis M77.31 Calcaneal spur, right foot M77.32 Calcaneal spur, left foot Assessments Date Code Description Provider 08/16/2021 M72.2 Plantar fascial fibromatosis And elyse Mejia, LEONEL 06/27/2021 M72.2 Plantar fascial fibromatosis And elyse Mejia DPM 05/01/2021 M72.2 Plantar fascial fibromatosis And elyse Mejia, LEONEL 05/01/2021 M77.31 Calcaneal spur, right foot Grayson Mejia DPM 05/01/2021 M77.32 Calcaneal spur, left foot Nasir Mejia DPM Plan of Treatment Future Appointment(s):* 09/27/2021 10:15 am - Nasir Mejia DPM at [facility] Functional Status Description No Information Available Mental Status Description No Information Available Referrals Description No Information Available
--- OUTSIDE RECORDS SUMMARY | 2021-10-13 08:36 | CCD ---
Author Author [facility] Organization [facility] Address Unknown Phone Unavailable Care Team Providers Care Viner Operator Name Role Phone Varsha Pugh Unavailable PROBLEMS Type Condition ICD9-CM Code MNU86-UZ Code Onset Dates Condition S tatus W/U Status Risk SNOMED Code Notes Problem Hypercholesteremia E78.0 Active confirmed 1 2484557 Problem Obesity (BMI 30-39.9) E66.9 Active confirmed 794633876 Problem Binge eating disorder F50.8 Active confirmed 106647763 Problem Anxiety F41.9 Active confirmed 25890441 Problem Migraine with aura and without status migrainosu s, not intractable G43.109 Active confirmed 6625997 Problem BMI 38.0-38.9,adult Z68.38 Active confirmed 580987382 Problem Liver cyst K76.89 Active confirmed 02423214 Problem Gastroesophageal reflux disease without esophagitis K21.9 Active confirmed 470729587 Problem Pure hypercholesterolemia E78.00 Active confirmed 427580983 Problem Mild intermittent asthma with acute exacerbation J 45.21 Active confirmed 889312029 Problem BMI 39.0-39.9,adult Z68.39 Active confirmed 027854338 Problem Hypercholesterolemia E78.00 Active confirmed 34885484 Problem Cigarette nicotine dependence without complication F17.210 Active confirmed 16539846 Problem Vitamin D deficiency E55.9 Active confirmed 03196255 Problem Meningioma D32.9 Active confirmed 347074667 Problem BMI 36.0-36.9,adult Z68.36 Active confirmed 395984427 Problem Tobacco use disorder Z72.0 Active confirmed 039530079 Problem PCOS (polycystic ovarian syndrome) E28.2 Activ e confirmed 15336343 Problem Pre-diabetes R73.03 Active confirmed 2229067 02 Problem Allergic rhinitis, unspecified seasonality, unspecifie d trigger J30.9 Active confirmed 23218585 Problem Severe obesity (BMI >= 40) E66.01 Active confirmed 434281948 Problem Mild intermittent asthma without complication J45. 20 Active confirmed 598520865 ALLERGIES Allergen (clinical drug ingredient) Drug/Non Drug Allergy do cumented on EMR Reaction Allergy Type Onset Date Status Sulfa (for allergy use only) Hives Non Drug Allergy Active nicotine Nicoderm CQ([facility] Code:[address]-65) rash/itching Drug Raimundo rgy Active Penicillin (For Allergies Use Only) hives Drug Allerg y Active ENCOUNTERS from 1984 to 2021-09-07 Encounter Location Date Provider Diagnosis [facility] [address] [facility] [phone] [place] [address] 04 Aug, 2021 Varsha Pugh Acute vaginitis N76. 0 and Other specified bacterial agents as the cause of diseases classified elsewhere B96.89 IMMUNIZATIONS Vaccine Route Administration Date Status COVID-19 [...] Education Language: Question Answer Notes Languages spoken: Togolese Restorationism: Question Answer Notes Restorationism 33 None Sexual Hx: Question Answer Notes [...] REASON FOR REFERRAL No Information VITAL SIGNS Weight 266 lbs Aug, Height 67.5 in Aug, BMI 41.04 kg/m2 Aug, Blood pressure systolic 104 mm Hg Aug, Blood pressure diastolic 86 mm Hg Aug, MEDICATIONS Medication SIG (Take, Route, Frequency, Duration) [...] Information RESULTS No Results REASON FOR VISIT ?BV MEDICAL (GENERAL) HISTORY Type Description Date Medical [...] No Information FUNCTIONAL STATUS No Information ASSESSMENTS Encounter Date Diagnosis Assessment Notes Treatment Notes Treatm ent Clinical Notes Aug, Other specified bacterial ag ents as the cause of diseases classified elsewhere (ICD-10 - B96.89) Aug, Acute vaginitis (ICD-10 - N76.0) PLAN OF TREATMENT Medication Medication Name Sig Start Date Stop Date Diflucan 150 MG 1 tablet Orally once for 1 day(s) Aug, metroNIDAZOLE 500 MG 1 tablet Orally Twice a day for 7 day(s) Aug, Next Appt Details as needed Reason: Provider Name:Diamond Ward Mcgarry, 2022-01-22 09:00:00 AM, [address] [facility] [facility], , [place], [address], Insurance Providers Payer Name Payer Address Payer Phone Insured Name Patient Relati onship to Insured Coverage Start Date Coverage End Date [facility] [address] [facility] [address] CALEB MAHMOOD self
--- OUTSIDE RECORDS SUMMARY | 2021-10-13 08:36 | CCD | Continuity of Care Document ---
Author Author Krista HILL P.A.-C. Organization Unknown Address [address] [place] [address] Phone [phone] Care Team Providers Care Instructor Trainer Canine Service Name Role Phone Galina Galindo AUTM [phone] Diamond Mcgarry MD AUTM [phone] Problems Active Problems Provider Date Migraine without aura, not refractory Salvador Zacarias M.D. On set: 03/19/2017 Localization-related epilepsy Salvador Zacarias M.D. Onset: Chronic tension-type headache Salvador Zacarias M.D. Onset: Obstructive sleep apnea syndrome Salvador Zacarias M.D. Onset: 05/20/2017 Dizziness and giddiness Salvador Zacarias M.D. Onset: Abnormal gait Salvador Zacarias M.D. Onset: 06/07/2021 Social History Type Date Description Comments Sex Unknown Tobacco Use Start: Unknown Light tobacco smoker (10 or fewe r cigarettes/day) Allergies, Adverse Reactions, Alerts Active Allergies Criticality Reaction | Severity Comments Date Penicillin Unable to assess criticality 03/19/2017 Sulfamethoxazole / Trimethoprim Unable to assess criticality 03/19/2017 Gabapentin Unable to assess criticality fatigue 03/24/2018 Medications Active Medications SIG Qnty Indications Ordering Provide r Date Hydroxyzine HCL 10mg Tablets 1 po bid prn 60tabs F41.1 Salvador Zacarias M.D. 08/01/2021 Meclizine HCL 12.5mg Tablets 1 by mouth twice a day for dizziness. 60tabs Salvador Zacarias M.D. 07/2021 Topiramate 100mg Tablets 1 1/2 tabs po daily Salvador Zacarias M.D. 07/22/2017 Immunizations Description No Information Available Vital Signs Date Vital Result Comment 08/01/2021 7:14am BP Systolic 124 mmHg BP Diastolic 80 mmHg Heart Rate 64 /min Respiratory Rate 16 /min 06/20/2021 5:18am BP Systolic 110 mmHg BP Diastolic 70 mmHg Heart Rate 64 /min Respiratory Rate 20 /min Results Description No Information Available Procedures Date Code Description Status 08/01/2021 45331 Office/Outpatient Established Mo d MDM 30-39 Min Completed 07/18/2021 71614 Polysomnography Sleep Staging 4+ Parameters Completed 07/06/2021 48085 Sympathetic Skin Responses Compl eted 07/06/2021 66492 Test Autonomic Nervous System, C ardiovagal Innervation Completed 06/21/2021 41017 MRI Brain W/Contrast Completed 06/21/2021 38666 MRI Brain W/Contrast Completed 06/20/2021 16950 Office/Outpatient Established Mo d MDM 30-39 Min Completed 06/12/2021 88813 EEG Recording Awake & Asleep Com pleted 06/12/2021 45506 MRI Brain W/O Contrast Completed 06/12/2021 86731 MRI Brain W/O Contrast Completed 06/12/2021 00093 EEG Recording Awake & Asleep Com pleted 06/11/2021 54455 Office/Outpatient Established Mo d MDM 30-39 Min Completed 06/07/2021 12075 Office/Outpatient Established Hi gh MDM 40-54 Min Completed 03/26/2021 78366 Nerve Conduction 11-12 Studies C ompleted 03/26/2021 35417 Needle Electromyography Complete , Five Or More Muscles Studied Completed 03/26/2021 22339 Needle Electromyography Complete , Five Or More Muscles Studied Completed 03/21/2021 75641 Office/Outpatient Established Mo d MDM 30-39 Min Completed Medical Devices Description No Information Available Encounters Type Date Location Provider Dx Diagnosis Office Visit 08/01/2021 10:45a Main office - [place] Zoraida huber P.A.-C. 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 G40.89 Other seizures R42 Dizziness and giddiness R26.81 Unsteadiness on feet G43.809 Other migraine, not intracta ble, without status migrainosus G44.221 Chronic tension-type headach e, intractable G47.33 Obstructive sleep apnea (jose luis lt) (pediatric) R20.2 Paresthesia of skin R94.02 Abnormal brain scan Office Visit 06/11/2021 8:00a [facility] Zoraida huber, P.A.-C. R42 Dizziness and giddiness R26.81 Unsteadiness on feet G40.89 Other seizures G44.221 Chronic tension-type headach e, intractable G43.809 Other migraine, not intracta ble, without status migrainosus G47.33 Obstructive sleep apnea (jose luis lt) (pediatric) Office Visit 06/07/2021 3:45p [facility] office - [place] Mariana Zuniga G43.009 Migraine w/o aura, not intractable, w/o status migrainosus G44.221 Chronic tension-type headach e, intractable R42 Dizziness and giddiness G40.89 Other seizures R26.81 Unsteadiness on feet Office Visit 03/21/2021 10:00a [facility] [place] Zoraida huber, P.A.-C. G43.809 Other migraine, not intractable, without status migrainosus R42 Dizziness and giddiness R55 Syncope and collapse M54.5 Low back pain G25.81 Restless legs syndrome M79.606 Pain in leg, unspecified Assessments Date Code Description Provider 08/01/2021 G43.809 Other migraine, not intractable, without status migrainosus Miguelina BarriosA.-CCade 08/01/2021 G44.221 Chronic tension-type headache, i ntractable Zoraida J. Trickey, P.A.-C. 08/01/2021 G40.89 Other seizures Zoraida Hill P.A.-C. 08/01/2021 R42 Dizziness and giddiness Zoraida Hill P.A.-C. 08/01/2021 D32.0 Benign neoplasm of cerebral meni nges Zoraida Hill P.A.-C. 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 08/01/2021 G47.61 Periodic limb movement disorder Zoraida Hill P.A.-C. 08/01/2021 I95.1 Orthostatic hypotension Stacy Barrios.A.-C. 08/01/2021 M54.2 Cervicalgia Zoraida Hill P.A.-C. 08/01/2021 F41.1 Generalized anxiety disorder Marge Hill P.A.-C. 07/18/2021 G47.61 Periodic limb movement disorder Salvador Zacarias M.D. 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 07/18/2021 R06.83 Snoring Salvador Zacarias M.D. 07/06/2021 I95.1 Orthostatic hypotension Salvador jones M.D. 07/06/2021 I95.1 Orthostatic hypotension Ans/VS 06/21/2021 D32.0 Benign neoplasm of cerebral meni nges Rico Mcintyre M.D. 06/21/2021 D32.0 Benign neoplasm of cerebral meni nges MRI 06/20/2021 G40.89 Other seizures Zoraida Hill P.A.-CCade 06/20/2021 R42 Dizziness and giddiness Zoraida Hill P.A.-C. 06/20/2021 R26.81 Unsteadiness on feet Miguelina PruettA.-CCade 06/20/2021 G43.809 Other migraine, not intractable, without status migrainosus Stacy Barrios.A.-C. 06/20/2021 G44.221 Chronic tension-type headache, i ntractable Zoraida Hill P.A.-C. 06/20/2021 G47.33 Obstructive sleep apnea (adult) (pediatric) Stacy Barrios.A.-C. 06/20/2021 R20.2 Paresthesia of skin Stacy Veliz.A.-C. 06/20/2021 R94.02 Abnormal brain scan Stacy Veliz.A.-C. 06/12/2021 R42 Dizziness and giddiness Rico Tim M.D. 06/12/2021 R41.82 Altered mental status, unspecifi ed Melita Mcintyre M.D. 06/12/2021 R26.81 Unsteadiness on feet Rico Mcintyre M.D. 06/12/2021 R42 Dizziness and giddiness MRI 06/12/2021 G40.89 Other seizures Toi Capps 06/12/2021 R26.81 Unsteadiness on feet MRI 06/12/2021 G40.89 Other seizures MRI 06/12/2021 R41.82 Altered mental status, unspecifi ed EEG 06/11/2021 R42 Dizziness and giddiness Stacy Barrios.A.-C. 06/11/2021 R26.81 Unsteadiness on feet Stacy Pruett.A.-C. 06/11/2021 G40.89 Other seizures Stacy Barrios.A.-C. 06/11/2021 G44.221 Chronic tension-type headache, i ntractable Zoraida Hill P.A.-C. 06/11/2021 G43.809 Other migraine, not intractable, without status migrainosus Zoraida Hill P.A.-C. 06/11/2021 G47.33 Obstructive sleep apnea (adult) (pediatric) Stacy Barrios.A.-C. 06/07/2021 G43.009 Migraine without aur a, not intractable, without status migrainosus Salvador Zacarias M.D. 06/07/2021 G44.221 Chronic tension-type headache, i ntractable Salvador Zacarias M.D. 06/07/2021 R42 Dizziness and giddiness Salvador jones M.D. 06/07/2021 G40.89 Other seizures Salvador Zacarias M.D. 06/07/2021 R26.81 Unsteadiness on feet Salvador Zacarias M.D. 03/26/2021 M79.604 Pain in right leg Mariana Zuniga 03/26/2021 M79.605 Pain in left leg Toi Zuniga 03/26/2021 M54.89 Other dorsalgia Salvador Zacarias M.D. 03/21/2021 G43.809 Other migraine, not intractable, without status migrainosus Miguelina BarriosAJulianneCCade 03/21/2021 R42 Dizziness and giddiness Stacy Barrios.ACade-CCade 03/21/2021 R55 Syncope and collapse Miguelina PruettACade-CCade 03/21/2021 M54.5 Low back pain Zoraida Hill P.A.-C. 03/21/2021 G25.81 Restless legs syndrome Miguelina GutierrezA.-CCade 03/21/2021 M79.606 Pain in leg, unspecified Zoraida Hill P.A.-C. Plan of Treatment Future Appointment(s):* 11/07/2021 11:15 am - Naresh BarriosCCade at [facility] 08/01/2021 - Zoraida Hill P.A.-C.* G43.809 Other migraine, not intractable, without status migrainosus* Comments:* Controlled. * G44.221 Chronic tension-type headache, intractable* Comments:* Aggravated by recent stressors. * G40.89 Other seizures* Comments:* Wellbutrin has been discontinued. Her EEG was normal. * R42 Dizziness and giddiness* Comments:* Improved. She still has swaying sensations. * D32.0 Benign neoplasm of cerebral meninges* Comments:* Stable on MRI. 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 * G47.61 Periodic limb movement disorder * I95.1 Orthostatic hypotension* Comments:* ANS suggested orthostatic intolerance. She has been referred to cardiology for assessment. * M54.2 Cervicalgia* Comments:* Schedule cervical MRI. * F41.1 Generalized anxiety disorder* New Medication:* Hydroxyzine HCL 10 mg - 1 po bid prn * Comments:* Add hydroxyzine as needed. She continues Prozac. Follow up with PCP. * Follow up:* 3 months Functional Status Description No Information Available Mental Status Description No Information Available Referrals Refer to Dr Reason for Referral Status Appt Date Lazaro Flores M.D., [place].,FMadhuP [facility] INTOLERANCE Created [facility] [id number] [place] [address] [place] [address] [phone] Rico Mcintyre M.D. Created [facility] [address] [place] [address] [phone] Rico Mcintyre M.D. Created [facility] [address] [place] [address] [phone] Rico Mcintyre M.D. Created [facility] [address] [place] [address] [phone] Rico Mcintyre M.D. Created [facility] [address] [place] [address] [phone] Nasir Titus D.P.MCade BILATERAL FOOT PAIN Created Podiat[facility] [address] [facility] [address] [place] [address] [phone]"
--- OUTSIDE RECORDS SUMMARY | 2021-10-13 08:36 | CCD | Continuity of Care Document ---
Author Author Krista Trejo Organization Unknown Address [address] [place] [address] Phone [phone] Care Team Providers Care Lubrication Worker Name Role Phone Galina Galindo AUTM [phone] Diamond Mcgarry MD AUTM [phone] Problems Active Problems Provider Date Migraine without [...] SIG Qnty Indications Ordering Provide r Date Meclizine HCL 12.5mg Tablets 1 by mouth twice a day for dizziness. 60tabs Salvador Zacarias M.D. 07/2021 Topiramate 100mg Tablets 1 1/2 tabs po daily Salvador Zacarias M.D. 07/22/2017 Immunizations Description No Information Available Vital Signs Date Vital Result Comment 06/20/2021 5:18am BP Systolic 110 mmHg BP Diastolic 70 mmHg Heart Rate 64 /min Respiratory Rate 20 /min 06/11/2021 7:19am BP Systolic 110 mmHg BP Diastolic 80 mmHg Heart Rate 80 /min Respiratory Rate 20 /min Height 68 inches 5'8" Weight 265.00 lb BMI (Body Mass Index) 40.3 kg/m2 [place] Body Weight 140 lb Results Description No Information Available Procedures Date Code Description Status 07/18/2021 16675 Polysomnography Sleep Staging 4+ Parameters Completed 07/06/2021 21524 Sympathetic Skin Responses Compl eted 07/06/2021 17386 Test Autonomic Nervous System, C ardiovagal Innervation Completed 06/21/2021 72832 MRI Brain W/Contrast Completed 06/21/2021 54855 MRI Brain W/Contrast Completed 06/20/2021 15170 Office/Outpatient Established Mo d MDM 30-39 Min Completed 06/12/2021 37508 EEG Recording Awake & Asleep Com pleted 06/12/2021 16668 EEG Recording Awake & Asleep Com pleted 06/12/2021 42355 MRI Brain W/O Contrast Completed 06/12/2021 06905 MRI Brain W/O Contrast Completed 06/11/2021 46116 Office/Outpatient Established Mo d MDM 30-39 Min Completed 06/07/2021 82091 Office/Outpatient Established Hi gh MDM 40-54 Min Completed 03/26/2021 06768 Nerve Conduction 11-12 Studies C ompleted 03/26/2021 87964 Needle Electromyography Complete , Five Or More Muscles Studied Completed 03/26/2021 22946 Needle Electromyography Complete , Five Or More Muscles Studied Completed 03/21/2021 71706 Office/Outpatient Established Mo d MDM 30-39 Min Completed Medical Devices Description No Information Available Encounters Type Date Location Provider Dx Diagnosis Office Visit 06/20/2021 10:[place]a [place] H[place]-Karuna G40.89 Other seizures R42 Dizziness and giddiness R26.81 Unsteadiness on feet G43.809 Other migraine, not intracta ble, without status migrainosus G44.221 Chronic tension-type headach e, intractable G47.33 Obstructive sleep apnea (jose luis lt) (pediatric) R20.2 Paresthesia of skin R94.02 Abnormal brain scan Office Visit 06/11/2021 8:00a Main office - [place] Miguelina VelizA.-CCade R42 Dizziness and giddiness R26.81 Unsteadiness on feet G40.89 Other seizures G44.221 Chronic tension-type headach e, intractable G43.809 Other migraine, not intracta ble, without status migrainosus G47.33 Obstructive sleep apnea (jose luis lt) (pediatric) Office Visit 06/07/2021 3:45p Main office - [place] Mariana Zuniga G43.009 Migraine w/o aura, not intractable, w/o status migrainosus G44.221 Chronic tension-type headach e, intractable R42 Dizziness and giddiness G40.89 Other seizures R26.81 Unsteadiness on feet Office Visit 03/21/2021 10:00a Main office - [place] Miguelina VelizA.-CCade G43.809 Other migraine, not intractable, without status migrainosus R42 Dizziness and giddiness R55 Syncope and collapse M54.5 Low back pain G25.81 Restless legs syndrome M79.606 Pain in leg, unspecified Assessments Date Code Description Provider 07/18/2021 G47.61 Periodic limb movement disorder Salvador Zacarias M.D. 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 07/18/2021 R06.83 Snoring Salvador Zacarias M.D. 07/06/2021 I95.1 Orthostatic hypotension Salvador jones M.D. 07/06/2021 I95.1 Orthostatic hypotension Ans/VS 06/21/2021 D32.0 Benign neoplasm of cerebral meni shones Rico Mcintyre M.D. 06/21/2021 D32.0 Benign neoplasm of cerebral meni nges MRI 06/20/2021 G40.89 Other seizures Miguelina BarriosACade-CCade 06/20/2021 R42 Dizziness and giddiness Miguelina BarriosA.-CCade 06/20/2021 R26.81 Unsteadiness on feet Stacy Pruett.A.-C. 06/20/2021 G43.809 Other migraine, not intractable, without [...] EEG 06/11/2021 R42 Dizziness and giddiness Stacy Bariros.A.-C. 06/11/2021 R26.81 Unsteadiness on feet Stacy Pruett.A.-C. 06/11/2021 G40.89 Other seizures Stacy Barrios.A.-C. 06/11/2021 G44.221 Chronic tension-type headache, i ntractable Stacy Barrios.A.-C. 06/11/2021 G43.809 Other migraine, not intractable, without status migrainosus Stacy Barrios.A.-C. 06/11/2021 G47.33 Obstructive sleep apnea (adult) (pediatric) Zoraida Hill P.A.-C. 06/07/2021 G43.009 Migraine without aur a, not [...] intractable, without status migrainosus Zoraida Hill P.A.-C. 03/21/2021 R42 Dizziness and giddiness Zoraida Hill P.A.-C. 03/21/2021 R55 Syncope and collapse Zoraida barnes P.A.-C. 03/21/2021 M54.5 Low back pain Zoraida Hill P.A.-C. 03/21/2021 G25.81 Restless legs syndrome Zoraida roy P.A.-C. 03/21/2021 M79.606 Pain in leg, unspecified Zoraida Hill P.A.-C. Plan of Treatment Future Appointment(s):* 08/01/2021 10:45 am - Zoraida Hill P.A.-C. at Main office [facility] 06/20/2021 - Zoraida Hill P.A.-C.* G40.89 Other seizures* Comments:* Wellbutrin has been discontinued. Her EEG was normal. * R42 Dizziness and giddiness* Comments:* She has not taken meclizine recently. ANS is pending. EEG was normal. * R26.81 Unsteadiness on feet* Comments:* She has episodes of "swaying". Her gait is stable. * G43.809 Other migraine, not intractable, without status migrainosus* Comments: * Controlled. * G44.221 Chronic tension-type headache, intractable* Comments:* Mild but daily. Recent stressors have aggravated her symptoms. Continue current medications. * G47.33 Obstructive sleep apnea (adult) (pediatric)* Comments:* Sleep study pending. * R20.2 Paresthesia of skin* Comments:* Improved. * R94.02 Abnormal brain scan* Comments:* MRI with contrast pending. * Follow up:* 4-6 weeks Functional Status Description No Information Available Mental Status Description No Information Available Referrals Refer to Reason for Referral Status Appt Date Rico Mcintyre M.D. Created [facility] [address] [place] [address] [phone] Rico Mcintyre M.D. Created [facility] [address] [place] [address] [phone] Rico Mcintyre M.D. Created [facility] [address] [place] [address] [phone] Rico Mcintyre M.D. Created [facility] [address] [place] [address] [phone] Nasir Titus D.P.MCade BILATERAL FOOT PAIN Created Podiatry [address] [facility], [address] [place] [address] [phone]
--- OUTSIDE RECORDS SUMMARY | 2021-10-13 08:36 | CCD ---
Author Author [facility] Organization [facility] Address Unknown Phone Unavailable Care Team Providers Care Chief Controller Center Name Role Phone Galina Galindo Unavailable PROBLEMS Type Condition ICD9-CM Code [id number] Code Onset Dates Condition S tatus W/U Status Risk SNOMED Code Notes Problem Hypercholesteremia E78.0 Active confirmed 1 6572228 Problem Obesity (BMI 30-39.9) E66.9 Active confirmed 740071970 Problem Binge eating disorder F50.8 Active confirmed 894396754 Problem Anxiety F41.9 Active confirmed 20973043 Problem Migraine with aura and without status migrainosu s, not intractable G43.109 Active confirmed 6757817 Problem BMI 38.0-38.9,adult Z68.38 Active confirmed 330441723 Problem Liver cyst K76.89 Active confirmed 98011772 Problem Gastroesophageal reflux disease without esophagitis K21.9 Active confirmed 832335756 Problem Pure hypercholesterolemia E78.00 Active confirmed 870922370 Problem Mild intermittent asthma with acute exacerbation J 45.21 Active confirmed 579382984 Problem BMI 39.0-39.9,adult Z68.39 Active confirmed 574156986 Problem Hypercholesterolemia E78.00 Active confirmed 92516587 Problem Cigarette nicotine dependence without complication F17.210 Active confirmed 92150556 Problem Vitamin D deficiency E55.9 Active confirmed 00401634 Problem Meningioma D32.9 Active confirmed 216738596 Problem BMI 36.0-36.9,adult Z68.36 Active confirmed 187913142 Problem Tobacco use disorder Z72.0 Active confirmed 736379047 Problem PCOS (polycystic ovarian syndrome) E28.2 Activ e confirmed 96822531 Problem Pre-diabetes R73.03 Active confirmed 6850131 02 Problem Allergic rhinitis, unspecified seasonality, unspecifie d trigger J30.9 Active confirmed 54667247 Problem Severe obesity (BMI >= 40) E66.01 Active confirmed 599517729 Problem Mild intermittent asthma without complication J45. 20 Active confirmed 766036699 ALLERGIES Allergen (clinical drug ingredient) Drug/Non Drug Allergy do cumented on EMR Reaction Allergy Type Onset Date Status Sulfa (for allergy use only) Hives Non Drug Allergy Active nicotine Nicoderm CQ([facility] Code:[address]-80) rash/itching Drug Raimundo rgy Active Penicillin (For Allergies Use Only) hives Drug Allerg y Active ENCOUNTERS from 1984 to 2021-09-12 Encounter Location Date Provider Diagnosis [place] [address] [facility] [phone] [place] [address] 13 Aug, 2021 Galina Galindo IMMUNIZATIONS Vaccine Route Administration Date [...] Education Language: Question Answer Notes Languages spoken: Bengali Yazdanism: Question Answer Notes Yazdanism 33 None Sexual Hx: Question Answer Notes [...] Information RESULTS No Results REASON FOR VISIT neurology referral MEDICAL (GENERAL) HISTORY Type Description Date Medical [...] Provider Name:Diamond Mcgarry, 2022-01-22 09:00:00 AM, [address] [facility], , [place], [address], Insurance Providers Payer Name Payer Address Payer Phone Insured Name Patient Relati onship to Insured Coverage Start Date Coverage End Date [facility] [employer] [facility] [address] [facility] [phone] CALEB MAHMOOD self
--- OUTSIDE RECORDS SUMMARY | 2021-10-13 08:36 | CCD | Continuity of Care Document ---
Author Author Krista TREVINO Organization Unknown Address [address] [place] [address] Phone [phone] Care Team Providers Care Acid Regenerator Name Role Phone Galina Galindo AUTM [phone] Diamond Mcgarry MD AUTM [phone] Problems Active Problems Provider Date Migraine without [...] tobacco smoker (10 or fewe r cigarettes/day) Allergies and adverse reactions Active Allergies Criticality [...] day for dizziness. 60tabs Salvador Zacarias M.D. 07/0 07/2021 Topiramate 100mg Tablets 1 1/2 tabs [...] Information Available Procedures Date Code Description Status 09/03/2021 30916 MRI Spine Cervical W/O Contrast Completed 09/03/2021 96933 MRI Spine Cervical W/O Contrast Completed 08/01/2021 84344 Office/Outpatient Established Mo d MDM 30-39 Min Completed 07/18/2021 88563 Polysomnography Sleep Staging 4+ Parameters Completed 07/06/2021 46333 Sympathetic Skin Responses Compl eted 07/06/2021 82805 Test Autonomic Nervous System, C ardiovagal Innervation Completed 06/21/2021 66427 MRI Brain W/Contrast Completed 06/21/2021 32901 MRI Brain W/Contrast Completed 06/20/2021 02268 Office/Outpatient Established Mo d MDM 30-39 Min Completed 06/12/2021 39497 EEG Recording Awake & Asleep Com pleted 06/12/2021 99080 MRI Brain W/O Contrast Completed 06/12/2021 68288 MRI Brain W/O Contrast Completed 06/12/2021 84864 EEG Recording Awake & Asleep Com pleted 06/11/2021 86879 Office/Outpatient Established Mo d MDM 30-39 Min Completed 06/07/2021 41996 Office/Outpatient Established Hi gh MDM 40-54 Min Completed 03/26/2021 74817 Nerve Conduction 11-12 Studies C ompleted 03/26/2021 85153 Needle Electromyography Complete , Five Or More Muscles Studied Completed 03/26/2021 58132 Needle Electromyography Complete , Five Or More Muscles Studied Completed 03/21/2021 80939 Office/Outpatient Established Mo d MDM 30-39 Min Completed Medical Devices Description No Information Available Encounters Type Date Location Provider Dx Diagnosis Office Visit 08/01/2021 10:45a Main office - [place] Miguelina VelizAJessica G43.809 Other migraine, not intractable, without status migrainosus G44.221 Chronic tension-type headach e, intractable G40.89 Other seizures R42 Dizziness and giddiness D32.0 Benign neoplasm of cerebral meninges 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 G40.89 Other seizures R42 Dizziness and giddiness R26.81 Unsteadiness on feet G43.809 Other migraine, not intracta ble, without status migrainosus G44.221 Chronic tension-type headach e, intractable G47.33 Obstructive sleep apnea (jose luis lt) (pediatric) R20.2 Paresthesia of skin R94.02 Abnormal brain scan Office Visit 06/11/2021 8:00a Main office - [place] Stacy Veliz.A.-CCade R42 Dizziness and giddiness R26.81 Unsteadiness on feet G40.89 Other seizures G44.221 Chronic tension-type headach e, intractable G43.809 Other migraine, not intracta ble, without status migrainosus G47.33 Obstructive sleep apnea (jose luis lt) (pediatric) Office Visit 06/07/2021 3:45p Main office - [place] Mariana Zuniga G43.009 Migraine w/o aura, not intractable, w/o status migrainosus G44.221 Chronic tension-type headach e, intractable R42 Dizziness and giddiness G40.89 Other seizures R26.81 Unsteadiness on feet Office Visit 03/21/2021 10:00a Main office - [place] Stacy Veliz.A.-C. G43.809 Other migraine, not intractable, without status migrainosus R42 Dizziness and giddiness R55 Syncope and collapse M54.5 Low back pain G25.81 Restless legs syndrome M79.606 Pain in leg, unspecified Assessments Date Code Description Provider 09/03/2021 M54.2 Cervicalgia Toi Capps 09/03/2021 M54.2 Cervicalgia MRI 09/03/2021 M47.892 Other spondylosis, cervical alicja on Rico Mcintyre M.D. 09/03/2021 M47.892 Other spondylosis, cervical alicja on MRI 08/01/2021 G43.809 Other migraine, not intractable, without status migrainosus Stacy Barrios.A.-C. 08/01/2021 G44.221 Chronic tension-type headache, i ntractable Zoraida Hill P.A.-C. 08/01/2021 G40.89 Other seizures Zoraida Hill P.A.-C. 08/01/2021 R42 Dizziness and giddiness Zoraida Hill P.A.-C. 08/01/2021 D32.0 Benign neoplasm of cerebral meni nges Zoraida Hill P.A.-C. 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 08/01/2021 G47.61 Periodic limb movement disorder Zoraida Hill P.A.-C. 08/01/2021 I95.1 Orthostatic hypotension Zoraida Hill P.A.-C. 08/01/2021 M54.2 Cervicalgia Zoraida Hill P.A.-C. 08/01/2021 [...] nges MRI 06/20/2021 G40.89 Other seizures Miguelina BarriosA.-CCade 06/20/2021 R42 Dizziness and giddiness Stacy Barrios.A.-C. 06/20/2021 R26.81 Unsteadiness on feet Miguelina PruettA.-CCade 06/20/2021 G43.809 Other migraine, not intractable, without status migrainosus Stacy Barrios.A.-C. 06/20/2021 G44.221 Chronic tension-type headache, i ntractable Stacy Barrios.A.-C. 06/20/2021 G47.33 Obstructive sleep apnea (adult) (pediatric) Stacy Barrios.A.-C. 06/20/2021 R20.2 Paresthesia of skin Stacy Veliz.A.-CCade 06/20/2021 R94.02 Abnormal brain scan Stacy Veliz.A.-C. [...] feet Stacy Pruett.A.-C. 06/11/2021 G40.89 Other seizures Miguelina BarriosACade-CCade 06/11/2021 G44.221 Chronic tension-type headache, i ntractable Naresh BarriosCCade 06/11/2021 G43.809 Other migraine, not intractable, without status migrainosus Miguelina BarriosACade-CCade 06/11/2021 G47.33 Obstructive sleep apnea (adult) (pediatric) Naresh BarriosCCade 06/07/2021 G43.009 Migraine without aur a, not [...] migraine, not intractable, without status migrainosus Miguelina BrariosAJulianneCCade 03/21/2021 R42 Dizziness and giddiness Miguelina BarriosAJulianneCCade 03/21/2021 R55 Syncope and collapse Zoraida barnes P.A.-C. 03/21/2021 M54.5 Low back pain Zoraida Hill P.A.-C. 03/21/2021 G25.81 Restless legs syndrome Zoraida roy P.A.-C. 03/21/2021 M79.606 Pain in leg, unspecified Zoraida Hill P.A.-C. Plan of Treatment Future Appointment(s):* 11/07/2021 11:15 am - Zoraida Hill P.A.-C. at Main [facility] 08/01/2021 Faraz Hill P.A.-C.* G43.809 Other migraine, not intractable, [...] Status Appt Date Rico Mcintyre M.D. Created [facility] [address] [place] [address] [phone] Lazaro Flores M.D., F.A.C.C.,F.R.C.P DIZZINESS WIT H ORTHO STATIC INTOLERANCE Created [facility] [address] [place] [address] [phone] Rico Mcintyre M.D. Created [facility] [address] [place] [address] [phone] Rico Mcintyre M.D. Created [facility] [address] [place] [address] [phone] Rico Mcintyre M.D. Created [facility] [address] [place], [place] [address] [phone] Rico Mcintyre M.D. Created [facility] [address] [place] [address] [phone] Nasir Titus D.P.M. BILATERAL FOOT PAIN Created Podiatry [address] [facility], [address] [place] [address] [phone]"
--- OUTSIDE RECORDS SUMMARY | 2021-10-13 08:36 | CCD | Continuity of Care Document ---
Author Author Krista HILL P.A.-C. Organization Unknown Address [address] [place] [address] Phone [phone] Care Team Providers Care Master Sonar Technician Name Role Phone Galina Gailndo AUTM [phone] Diamond Mcgarry MD AUTM [phone] Problems Active Problems Provider Date Migraine without [...] lb BMI (Body Mass Index) 40.3 kg/m2 [place] Body Weight 140 lb Results Description No Information Available Procedures Date Code Description Status 07/18/2021 50129 Polysomnography Sleep Staging 4+ Parameters Completed 07/06/2021 25782 Sympathetic Skin Responses Compl eted 07/06/2021 77683 Test Autonomic Nervous System, C ardiovagal Innervation Completed 06/21/2021 94360 MRI Brain W/Contrast Completed 06/21/2021 98922 MRI Brain W/Contrast Completed 06/20/2021 11219 Office/Outpatient Established Mo d MDM 30-39 Min Completed 06/12/2021 16874 EEG Recording Awake & Asleep Com pleted 06/12/2021 50519 EEG Recording Awake & Asleep Com pleted 06/12/2021 86758 MRI Brain W/O Contrast Completed 06/12/2021 59488 MRI Brain W/O Contrast Completed 06/11/2021 35365 Office/Outpatient Established Mo d MDM 30-39 Min Completed 06/07/2021 02180 Office/Outpatient Established Hi gh MDM 40-54 Min Completed 03/26/2021 03347 Nerve Conduction 11-12 Studies C ompleted 03/26/2021 70726 Needle Electromyography Complete , Five Or More Muscles Studied Completed 03/26/2021 83409 Needle Electromyography Complete , Five Or More Muscles Studied Completed 03/21/2021 18261 Office/Outpatient Established Mo d MDM 30-39 Min Completed Medical Devices Description No Information Available Encounters Type Date Location Provider Dx Diagnosis Office Visit 06/20/2021 10:30a Main office - [place] Zoraida huber P.A.-C. G40.89 Other seizures R42 Dizziness and giddiness R26.81 Unsteadiness on feet G43.809 Other migraine, not intracta ble, without status migrainosus G44.221 Chronic tension-type headach e, intractable G47.33 Obstructive sleep apnea (jose luis lt) (pediatric) R20.2 Paresthesia of skin R94.02 Abnormal brain scan Office Visit 06/11/2021 8:00a Main office - [place] Zoraida huber P.A.-C. R42 Dizziness and giddiness R26.81 Unsteadiness on feet G40.89 Other seizures G44.221 Chronic tension-type headach e, intractable G43.809 Other migraine, not intracta ble, without status migrainosus G47.33 Obstructive sleep apnea (jose luis lt) (pediatric) Office Visit 06/07/2021 3:45p Main office - [place] Mariana Zuniga G43.009 Migraine w/o aura, not intractable, w/o status migrainosus G44.221 Chronic tension-type headach e, intractable R42 Dizziness and giddiness G40.89 Other seizures R26.81 Unsteadiness on feet Office Visit 03/21/2021 10:00a Main office - [place] Zoraida huber P.A.-C. G43.809 Other migraine, not intractable, without status migrainosus R42 Dizziness and giddiness R55 Syncope and collapse M54.5 Low back pain G25.81 Restless legs syndrome M79.606 Pain in leg, unspecified Assessments Date Code Description Provider 08/01/2021 G43.809 Other migraine, not intractable, without status migrainosus Zoraida Hill P.A.-C. 08/01/2021 G44.221 Chronic tension-type headache, i ntractable Zoraida Hill, P.A.-C. 08/01/2021 G40.89 Other seizures Zoraida Hill P.A.-C. 08/01/2021 R42 Dizziness and giddiness Zoraida Hill P.A.-C. 08/01/2021 D32.0 Benign neoplasm of cerebral meni nges Zoraida Hill P.A.-C. 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 08/01/2021 G47.61 Periodic limb movement disorder Stacy Barrios.A.-C. 08/01/2021 I95.1 Orthostatic hypotension Stacy Barrios.A.-C. 08/01/2021 M54.2 Cervicalgia Stacy Barrios.A.-CCade 08/01/2021 F41.1 Generalized anxiety disorder Marge Hill P.A.-CCade 07/18/2021 G47.61 Periodic limb movement disorder Salvador Zacarias M.D. 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 07/18/2021 R06.83 Snoring Salvador Zacarias M.D. 07/06/2021 I95.1 Orthostatic hypotension Salvador jones M.D. 07/06/2021 I95.1 Orthostatic hypotension Ans/VS 06/21/2021 D32.0 Benign neoplasm of cerebral meni nges Rico Mcintyre M.D. 06/21/2021 D32.0 Benign neoplasm of cerebral meni nges MRI 06/20/2021 G40.89 Other seizures Stacy Barrios.A.-CCade 06/20/2021 R42 Dizziness and giddiness Stacy Barrios.A.-CCade 06/20/2021 R26.81 Unsteadiness on feet Stacy Pruett.A.-CCade 06/20/2021 G43.809 Other migraine, not intractable, without status migrainosus Stacy Barrios.A.-CCade 06/20/2021 G44.221 Chronic tension-type headache, i ntractable Zoraida Hill P.A.-C. 06/20/2021 G47.33 Obstructive sleep apnea (adult) (pediatric) Stacy Barrios.A.-CCade 06/20/2021 R20.2 Paresthesia of skin Stacy Veliz.A.-CCade [...] not intractable, without status migrainosus Miguelina BarriosACade-CCade 03/21/2021 R42 Dizziness and giddiness Miguelina BarriosACade-CCade 03/21/2021 R55 Syncope and collapse Miguelina PruettACade-CCade 03/21/2021 M54.5 Low back pain Miguelina BarriosAJulianneCCade 03/21/2021 G25.81 Restless legs syndrome Miguelina GutierrezACade-CCade 03/21/2021 M79.606 Pain in leg, unspecified Miguelina BarriosAJulianneCCade Plan of Treatment 08/01/2021 - Miguelina BarriosA.-C.* G43.809 Other migraine, not intractable, without status migrainosus * G44.221 Chronic tension-type headache, intractable * G40.89 Other seizures * R42 Dizziness and giddiness * D32.0 Benign neoplasm of cerebral meninges * 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 Created [facility] [address] [place] [address] [phone] Rico Mcintyre M.D. Created [facility] [address] [place] [address] [phone] Rico Mcintyre M.D. Created [facility] [address] [place] [address] [phone] Rico Mcintyre M.D. Created [facility] [address] [place], [place] [id number] [phone] Nasir Titus D.PCadeMCade BILATERAL FOOT PAIN Created Podiatry [address] [facility], [address] [place] [id number] [phone]
--- OUTSIDE RECORDS SUMMARY | 2021-10-13 08:36 | CCD | Continuity of Care Document ---
Author Author Krista ORDAZ [place] Organization Unknown Address [address] [place] [address] Phone [phone] Care Team Providers Care Facility Mechanic Name Role Phone Galina Galindo [employer] AUTM [phone] [facility] AUTM [phone] Nabor Sheffield MD AUTM [phone] Problems Description No Information Available Social History [...] every day Unknown Calcium 500 + D [id number] Tablets Unknown Multivitamin Unknown Albuterol Fha Unknown [...] Available Procedures Date Code Description Status 07/27/2021 20861 Office/Outpatient Established Lo w MDM 20-29 Min [...]
--- OUTSIDE RECORDS SUMMARY | 2021-10-13 08:36 | CCD | Continuity of Care Document ---
Author Author Krista Trejo Organization Unknown Address [address] [place] [address] Phone [phone] Care Team Providers Care Diesel Tractor Operator Name Role Phone Galina Galindo AUTM [phone] Diamond Mcgarry MD AUTM [phone] Problems Active Problems Provider Date Migraine without [...] Salvador Zacarias M.D. 07/2021 Topiramate 100mg Tablets Take 1 Tablet By [...] lb BMI (Body Mass Index) 40.3 kg/m2 [place] Body Weight 140 lb Results Description No Information Available Procedures Date Code Description Status 07/06/2021 00885 Sympathetic Skin Responses Compl eted 07/06/2021 53674 Test Autonomic Nervous System, C ardiovagal Innervation Completed 06/21/2021 85174 MRI Brain W/Contrast Completed 06/21/2021 71919 MRI Brain W/Contrast Completed 06/20/2021 22368 Office/Outpatient Established Mo d MDM 30-39 Min Completed 06/12/2021 15830 EEG Recording Awake & Asleep Com pleted 06/12/2021 89843 EEG Recording Awake & Asleep Com pleted 06/12/2021 69930 MRI Brain W/O Contrast Completed 06/12/2021 09853 MRI Brain W/O Contrast Completed 06/11/2021 05707 Office/Outpatient Established Mo d MDM 30-39 Min Completed 06/07/2021 82027 Office/Outpatient Established Hi gh MDM 40-54 Min Completed 03/26/2021 08073 Nerve Conduction 11-12 Studies C ompleted 03/26/2021 51833 Needle Electromyography Complete , Five Or More Muscles Studied Completed 03/26/2021 16051 Needle Electromyography Complete , Five Or More Muscles Studied Completed 03/21/2021 76844 Office/Outpatient Established Mo d MDM 30-39 Min Completed Medical Devices Description No Information Available Encounters Type Date Location Provider Dx Diagnosis Office Visit 06/20/2021 10:30a Main office - [place] Miguelina VelizAJessica G40.89 Other seizures R42 Dizziness and giddiness R26.81 Unsteadiness on feet G43.809 Other migraine, not intracta ble, without status migrainosus G44.221 Chronic tension-type headach e, intractable G47.33 Obstructive sleep apnea (jose luis lt) (pediatric) R20.2 Paresthesia of skin R94.02 Abnormal brain scan Office Visit 06/11/2021 8:00a Main office - [place] Zoraida huber P.A.-C. R42 Dizziness and giddiness R26.81 Unsteadiness on feet G40.89 Other seizures G44.221 Chronic tension-type headach e, intractable G43.809 Other migraine, not intracta ble, without status migrainosus G47.33 Obstructive sleep apnea (jose luis lt) (pediatric) Office Visit 06/07/2021 3:45p Main office - [place] Mariana Zuniga G43.009 Migraine w/o aura, not intractable, w/o status migrainosus G44.221 Chronic tension-type headach e, intractable R42 Dizziness and giddiness G40.89 Other seizures R26.81 Unsteadiness on feet Office Visit 03/21/2021 10:00a Main office - [place] Stacy Veliz.A.-C. G43.809 Other migraine, not intractable, without status migrainosus R42 Dizziness and giddiness R55 Syncope and collapse M54.5 Low back pain G25.81 Restless legs syndrome M79.606 Pain in leg, unspecified Assessments Date Code Description Provider 07/06/2021 I95.1 Orthostatic hypotension Salvador jones M.D. 07/06/2021 I95.1 Orthostatic hypotension Ans/VS 06/21/2021 D32.0 Benign neoplasm of cerebral meni shones Rico Mcintyre M.D. 06/21/2021 D32.0 Benign neoplasm of cerebral meni nges MRI 06/20/2021 G40.89 Other seizures Zoraida Hill P.A.-C. 06/20/2021 R42 Dizziness and giddiness Zoraida Hill P.A.-C. 06/20/2021 R26.81 Unsteadiness on feet Stacy Pruett.A.-C. 06/20/2021 G43.809 Other migraine, not intractable, without status migrainosus Zoraida Hill, Stacy.A.-C. 06/20/2021 G44.221 Chronic tension-type headache, i ntractable Stacy Barrios.A.-C. 06/20/2021 G47.33 Obstructive sleep apnea (adult) (pediatric) Miguelina BarriosA.-C. 06/20/2021 R20.2 Paresthesia of skin Stacy Veliz.A.-CCade 06/20/2021 R94.02 Abnormal brain scan Miguelina VelizACade-CCade 06/12/2021 R42 Dizziness and giddiness Rico Tim [...] Stacy Pruett.A.-C. 06/11/2021 G40.89 Other seizures Stacy Barrios.A.-CCade 06/11/2021 G44.221 Chronic tension-type headache, i ntractable Stacy Barrios.A.-C. 06/11/2021 G43.809 Other migraine, not intractable, without status migrainosus Stacy Barrios.A.-CCade 06/11/2021 G47.33 Obstructive sleep apnea (adult) (pediatric) [...] Hill P.A.-C. 03/21/2021 R42 Dizziness and giddiness Miguelina BarriosACade-Karuna 03/21/2021 R55 Syncope and collapse Naresh PruettCCade 03/21/2021 M54.5 Low back pain Zoraida Hill P.A.-C. 03/21/2021 G25.81 Restless legs syndrome Zoraida roy P.A.-C. 03/21/2021 M79.606 Pain in leg, unspecified Zoraida Hill P.A.-C. Plan of Treatment Future Appointment(s):* 08/01/2021 10:45 am - Zoraida Hill P.A.-C. at Main office [facility] 06/20/2021 - Zoraida Hill P.A.-C.* G40.89 Other [...] Status Appt Date Rico Mcintyre M.D. Created [facility] [place] [address] [phone] Rico Mcintyre M.D. Created [facility] [address] [place] [address] [phone] Rico Mcintyre M.D. Created [facility] [address] [place] [address] [phone] Nasir Titus D.P.MCade BILATERAL FOOT PAIN Created [facility] [address] [facility], [address] [place] [address] [phone]
--- OUTSIDE RECORDS SUMMARY | 2021-10-13 08:36 | CCD ---
Author Organization Unknown Address [address] [place] [address] Phone [phone] Care Team Providers Care Vacuum Technician Name Role Phone [facility] 3 [phone] [facility] 4 [phone] Allergies Code Code System Name Reaction Severity Status Onset Penicillins Hives Moderate Active Sulfa (Sulfonamide Antibiotics) Hives Moderate Active Medications Name Status Start Date Stop Date Claritin take one tablet daily by mouth Active Not avai lable Daily Vitamins take oen daily by mouth Active Not available fluoxetine 40 mg capsule Take 1 capsule every day by oral route. Active Not available metformin 1,000 mg tablet Take 1 tablet twice a day by oral route. Active Not available Topamax take 1/2 tablet by mouth at bedtime Active 10/08/2021 Not available Problems None recorded. Procedures Date Name Performed by Hysterectomy Notes: 2018 Information not available Laparoscopy Notes: x3-2007, 2010, 2015 Information not available Removal of Gallbladder Notes: 2020 Information not available Results Lab Results None recorded. Past Encounters 10/08/2021 Displacement of Cervical Intervertebral Disc without Myelopathy; Degeneration of Cervical Intervertebral Disc; Cervical Spondylosis without Myelopathy; Myofascial Pain David Thomas MD: [id number] [facility] [address], [place] [address], Ph. Social History Tobacco Smoking Status Heavy Tobacco Smoker (1 pack per day) Vaccine List None recorded. Plan of Care Reminders Provider Appointments None recorded. Lab None recorded. Referral None recorded. Procedures None recorded. Surgeries None recorded. Imaging None recorded. Vitals Height Weight BMI Blood Pressure 5 ft 8 in 277.4 lbs 42.2 kg/m2 119/83 mm[Hg]
--- OUTSIDE RECORDS SUMMARY | 2021-10-13 08:36 | CCD | Continuity of Care Document ---
Author Author Krista TREVINO Organization Unknown Address [address] [place] [address] Phone [phone] Care Team Providers Care Oral And Maxillofacial Pathologist Name Role Phone Galina Galindo AUTM [phone] Diamond Mcgarry MD AUTM [phone] Problems Active Problems Provider Date Migraine without [...] Available Procedures Date Code Description Status 08/01/2021 88905 Office/Outpatient Established Mo d MDM 30-39 Min Completed 07/18/2021 58741 Polysomnography Sleep Staging 4+ Parameters Completed 07/06/2021 97577 Sympathetic Skin Responses Compl eted 07/06/2021 10109 Test Autonomic Nervous System, C ardiovagal Innervation Completed 06/21/2021 15883 MRI Brain W/Contrast Completed 06/21/2021 76722 MRI Brain W/Contrast Completed 06/20/2021 90065 Office/Outpatient Established Mo d MDM 30-39 Min Completed 06/12/2021 58934 EEG Recording Awake & Asleep Com pleted 06/12/2021 90405 MRI Brain W/O Contrast Completed 06/12/2021 21262 MRI Brain W/O Contrast Completed 06/12/2021 63077 EEG Recording Awake & Asleep Com pleted 06/11/2021 54810 Office/Outpatient Established Mo d MDM 30-39 Min Completed 06/07/2021 82534 Office/Outpatient Established Hi gh MDM 40-54 Min Completed 03/26/2021 52810 Nerve Conduction 11-12 Studies C ompleted 03/26/2021 21664 Needle Electromyography Complete , Five Or More Muscles Studied Completed 03/26/2021 65728 Needle Electromyography Complete , Five Or More Muscles Studied Completed 03/21/2021 62005 Office/Outpatient Established Mo d MDM 30-39 Min Completed Medical Devices Description No Information Available Encounters Type Date Location Provider Dx Diagnosis Office Visit 08/01/2021 10:45a [place] PCadeAJessica G43.809 Other migraine, not intractable, without status migrainosus G44.221 Chronic tension-type headach e, intractable G40.89 Other seizures R42 Dizziness and giddiness 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 G40.89 Other seizures R42 Dizziness and giddiness R26.81 Unsteadiness on feet G43.809 Other migraine, not intracta ble, without status migrainosus G44.221 Chronic tension-type headach e, intractable G47.33 Obstructive sleep apnea (jose luis lt) (pediatric) R20.2 Paresthesia of skin R94.02 Abnormal brain scan Office Visit 06/11/2021 8:00a Main office - [place] Zoraida huber, P.A.-C. R42 Dizziness and giddiness R26.81 Unsteadiness on feet G40.89 Other seizures G44.221 Chronic tension-type headach e, intractable G43.809 Other migraine, not intracta ble, without status migrainosus G47.33 Obstructive sleep apnea (jose luis lt) (pediatric) Office Visit 06/07/2021 3:45p Main office - [place] Mariana Zuniga G43.009 Migraine w/o aura, not intractable, w/o status migrainosus G44.221 Chronic tension-type headach e, intractable R42 Dizziness and giddiness G40.89 Other seizures R26.81 Unsteadiness on feet Office Visit 03/21/2021 10:00a Main office - [place] Zoraida huber, P.A.-C. G43.809 Other migraine, not intractable, without status migrainosus R42 Dizziness and giddiness R55 Syncope and collapse M54.5 Low back pain G25.81 Restless legs syndrome M79.606 Pain in leg, unspecified Assessments Date Code Description Provider 08/01/2021 G43.809 Other migraine, not intractable, without status migrainosus Stacy Barrios.A.-CCade 08/01/2021 G44.221 Chronic tension-type headache, i ntractable Zoraida Hill P.A.-C. 08/01/2021 G40.89 Other seizures Zoraida Hill P.A.-C. 08/01/2021 R42 Dizziness and giddiness Zoraida Hill P.A.-C. 08/01/2021 D32.0 Benign neoplasm of cerebral meni nges Zoraida Hill P.A.-C. 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 08/01/2021 G47.61 Periodic limb movement disorder Zoraida Hill, P.A.-C. 08/01/2021 I95.1 Orthostatic hypotension Zoraida Hill [...] Hill P.A.-C. 06/20/2021 R26.81 Unsteadiness on feet Zoraida barnes P.A.-C. 06/20/2021 G43.809 Other migraine, not intractable, without status migrainosus Zoraida Hill P.A.-C. 06/20/2021 G44.221 Chronic tension-type headache, i ntractable Stacy Barrios.A.-C. 06/20/2021 G47.33 Obstructive sleep apnea (adult) (pediatric) Stacy Barrios.A.-C. 06/20/2021 R20.2 Paresthesia of skin Miguelina VelizA.-CCade 06/20/2021 R94.02 Abnormal brain scan Miguelina VelizA.-C. 06/12/2021 R42 Dizziness and giddiness Rico Tim [...] Stacy Barrios.A.-C. 06/11/2021 R26.81 Unsteadiness on feet Miguelina PruettACade-CCade 06/11/2021 G40.89 Other seizures Stacy Barrios.A.-CCade 06/11/2021 G44.221 Chronic tension-type headache, i ntractable Zoraida Hill P.A.-C. 06/11/2021 G43.809 Other migraine, not intractable, without status migrainosus Stacy Barrios.A.-CCade 06/11/2021 G47.33 Obstructive sleep apnea (adult) (pediatric) Miguelina BarriosA.-CCade 06/07/2021 G43.009 Migraine without aur a, not [...] P.A.-C. 03/21/2021 G25.81 Restless legs syndrome Miguelina GutierrezACade-CCade 03/21/2021 M79.606 Pain in leg, unspecified Zoraida Hill P.A.-C. Plan of Treatment Future Appointment(s):* 11/07/2021 11:15 am - Zoraida Hill P.A.-C. at Main [facility] 08/01/2021 - Zoraida Hill P.A.-C.* G43.809 [...] to Reason for Referral Status Appt Date Lazaro Flores M.D., Asim,[place] [facility] STATIC INTOLERANCE [facility] [address] [place] [address] [phone] Rico Mcintyre M.D. Created [facility] [address] [place] [address] [phone] Rico Mcintyre M.D. Created [facility] [address] [place] [address] [phone] Rico Mcintyre M.D. Created [facility] [address] [place] [address] [phone] Rico Mcintyre M.D. Created [facility] [address] [place] [address] [phone] Nasir Titus, D.P.MCade BILATERAL FOOT PAIN Created Podiat[facility] [address] [facility] [address] [place] [address] [phone]"
[2021-10-13] MEDS ORDERED: IBUP-1022 PO (08:54)
[2021-10-13] MEDS ORDERED: KETOROLAC 30 MG/ML 1ML VIAL IV ONE (09:35)
[2021-10-13] MEDS ORDERED: LIDOCAINE 5% (LIDODERM) PATCH TD ONE (09:35)
[2021-10-13] MEDS ORDERED: predniSONE 20 MG TAB PO ONE (09:35)
[2021-10-13] MEDS ORDERED: ACETAMINOPHEN 500 MG TAB PO ONE (09:35)
[2021-10-13] MEDS ORDERED: KETOROLAC 30 MG/ML 1ML VIAL IM ONE (09:35)
--- NOTE | 2021-10-13 09:58 | REP ---
INDICATION: low back pain radiating to b/l LE, h/o "benign brain tumor". COMPARISON: Comparison is made with CT abdomen images obtained June 12, 2020. TECHNIQUE: Helical scanning is acquired and 4 mm axial images are generated. Coronal and sagittal MPR images are provided. FINDINGS: Lumbar vertebral body heights are preserved. Alignment is normal. There is no evidence of spondylolysis or spondylolisthesis. No fracture or collapse is seen. No visible extra-spinal abnormality. Axial and sagittal images taken at T11-12, T12-L1, L1-L2, and L2-L3 are unremarkable. No disc protrusion, central canal stenosis, or foraminal encroachment is seen at these levels. Axial and sagittal images taken at the L3-L4 level demonstrate mild diffuse disc bulging. There is some degenerative calcification along the annulus in the midline. No central canal stenosis is seen. No focal disc protrusion or foraminal narrowing is seen. At L4-L5 moderate diffuse disc bulging, there is producing thecal sac compression. There is degenerative calcification of the annulus. There is mild ligamentum flavum hypertrophy which contributes to the central canal stenosis. The thecal sac has a triangular configuration and midline AP dimension of 8 mm. No neural foraminal encroachment is seen. At L5-S1, there is degenerative disc narrowing with vacuum phenomena. Mild diffuse disc bulging is present. There is some early discogenic spurring bilaterally along the foraminal there is facet hypertrophy bilaterally at L5-S1. The findings appear to be unchanged from the June 12, 2020 CT images. Segment of the disc margin. IMPRESSION: There are mild degenerative disc and facet changes at L4-5 and L5-S1. The dominant abnormality is moderate central canal stenosis at L4-5. There is mild bilateral L5-S1 neural foraminal spurring. No acute bony abnormality. <Electronically signed by Maksim Tolliver > 10/13/21 4786
[2021-10-13 10:19] LABS: HEMATOCRIT 38.9 % (36.0-47.0); HEMOGLOBIN 12.9 g/dl (12.0-15.5); MEAN CORPUSCULAR HEMOGLOBIN 29.1 pg (27.0-33.0); MEAN CORPUSCULAR HGB CONC 33.2 g/dl (32.0-36.5); MEAN CORPUSCULAR VOLUME 87.8 fl (80.0-96.0); PLATELET COUNT, AUTOMATED 371 10^3/uL (150-450); RED BLOOD COUNT 4.43 10^6/uL (4.00-5.40); WHITE BLOOD COUNT 11.4 10^3/uL (4.0-10.0)
[2021-10-13 10:29] LABS: BLOOD UREA NITROGEN 14 MG/DL (7-18); CALCIUM LEVEL 8.5 MG/DL (8.5-10.1); CARBON DIOXIDE LEVEL 21 MEQ/L (21-32); CHLORIDE LEVEL 114 MEQ/L (98-107); CPK CREATINE PHOSPHOKINASE 42 U/L (26-192); CREATININE FOR GFR 0.69 MG/DL (0.55-1.30); GLOMERULAR FILTRATION RATE > 60.0 (>60); GLUCOSE, FASTING 93 MG/DL (70-100); SODIUM LEVEL 141 MEQ/L (136-145)
[2021-10-13 10:36] LABS: FREE T4 0.9 NG/DL (0.76-1.46); THYROID STIMULATING HORMONE 1.78 uIU/ML (0.358-3.740)
[2021-10-13 10:50] LABS: ATYPICAL LYMPH 4 % (0-5); BASOPHILS 1 % (0-1); EOSINOPHILS 2 % (0-3); LYMPHOCYTES 40 % (16-44); MONOCYTES 11 % (0-5); NEUTROPHILS 40 % (28-66); PLASMA CELL 1 % (0-0)
[2021-10-13 10:52] LABS: PLATELET ESTIMATE NORMAL (NORMAL)
[2021-10-13] MEDS ORDERED: LIDO5DIS41 TOP (11:41)
[2021-10-13] MEDS ORDERED: MEDR4PAK PO (11:41)
[2021-10-13 11:53] VITALS: BP 134/87
[2021-10-13] MEDS ORDERED: **NOTE PATIENT COMMENT** MISC XX SCH (21:00)
== END 2021-10-13 11:57 | disposition home or self-care (01) ==
LOC: M ED 08:25
DX: M51.26 Other intervertebral disc displacement, lumbar region (principal); M51.27 Other intervertebral disc displacement, lumbosacral region; M54.17 Radiculopathy, lumbosacral region; M48.061 Spinal stenosis, lumbar region without neurogenic claudication; M54.41 Lumbago with sciatica, right side; M54.42 Lumbago with sciatica, left side; F17.200 Nicotine dependence, unspecified, uncomplicated; Z88.0 Allergy status to penicillin; Z88.2 Allergy status to sulfonamides; Z79.899 Other long term (current) drug therapy
CPT/HCPCS: 36415; 72131; 80048; 81001; 82550; 84439; 84443; 85025; 87086; 96372; 96374; 99284; J1885; J7512

== ENCOUNTER → 2021-10-31 | Outpatient (CLI) | payer BC ==
[~2021-10-31] MED LIST changes: +CLAR10CA3 PO; -FLUC150T PO; +FLUC150T9 PO; +HYDR-643; +IBUP-1022 PO; +LIDO5DIS41 TOP; +MEDR4PAK PO
[2021-10-31 09:24] LABS: BASO # 0.1 10^3/uL (0.0-0.2); BASO % 0.6 % (0.0-1.0); EOS # 0.2 10^3/uL (0.0-0.5); EOS % 1.6 % (0.0-3.0); HEMATOCRIT 40.7 % (36.0-47.0); HEMOGLOBIN 13.2 g/dl (12.0-15.5); LYMPH # 4.4 10^3/uL (1.5-5.0); MEAN CORPUSCULAR HGB CONC 32.4 g/dl (32.0-36.5); MEAN CORPUSCULAR VOLUME 89.5 fl (80.0-96.0); MONO # 0.9 10^3/uL (0.0-0.8); MONO % 7.4 % (2.0-8.0); NEUTROPHILS # 6.9 10^3/uL (1.5-8.5); NEUTROPHILS % 54.8 % (36.0-66.0); PLATELET COUNT, AUTOMATED 355 10^3/uL (150-450); RED BLOOD COUNT 4.55 10^6/uL (4.00-5.40); WHITE BLOOD COUNT 12.7 10^3/uL (4.0-10.0)
[2021-10-31 09:43] LABS: ERYTHROCYTE SEDIMENTATION RATE 14 mm/hr (0-20)
[2021-10-31 09:46] LABS: C REACTIVE PROTEIN QUANTITATIV 0.63 MG/DL (0.00-0.30); RHEUMATOID FACTOR QUANT < 10.0 IU/ML (<15.0)
[2021-11-08 18:07] LABS: ANTINUCLEAR ANTIBODIES DIRECT Negative (Negative); HLA-B27 Negative (.)
== END ==
LOC: M LAB 08:45
PROVIDERS: ATTEND Orthopaedic Surgery
DX: M51.36 Other intervertebral disc degeneration, lumbar region (principal)

== ENCOUNTER 2022-03-19 12:29 | Emergency (ER) | payer BC ==
[~2022-03-19] VITALS: Ht 172.7 cm; Wt 124.0 kg
[~2022-03-19 12:29] MED LIST changes: -D31000TA2 PO; +VITA100093 PO
[2022-03-19] MEDS ORDERED: CEFD300C41 (12:45)
[2022-03-19] MEDS ORDERED: TOPI1CAP4 (12:45)
[2022-03-19] MEDS ORDERED: PSEU120T19 PO (15:35)
[2022-03-19 15:44] VITALS: BP 130/74
== END 2022-03-19 15:49 | disposition home or self-care (01) ==
LOC: M ED 12:29
DX: U07.1 COVID-19 (principal); E11.9 Type 2 diabetes mellitus without complications; Z79.84 Long term (current) use of oral hypoglycemic drugs; K21.9 Gastro-esophageal reflux disease without esophagitis; E28.2 Polycystic ovarian syndrome; G40.509 Epileptic seizures related to external causes, not intractable, without status epilepticus; F17.200 Nicotine dependence, unspecified, uncomplicated; Z88.0 Allergy status to penicillin; Z88.2 Allergy status to sulfonamides; Z79.899 Other long term (current) drug therapy

== ENCOUNTER → 2022-04-24 | Outpatient (CLI) | payer BC ==
[~2022-04-24] MED LIST changes: +CEFD300C41; +PSEU120T19 PO; +TOPI1CAP4
[2022-04-24 13:30] LABS: BASO # 0.1 10^3/uL (0.0-0.2); BASO % 0.7 % (0.0-1.0); EOS # 0.2 10^3/uL (0.0-0.5); EOS % 1.5 % (0.0-3.0); HEMATOCRIT 40.1 % (36.0-47.0); HEMOGLOBIN 12.8 g/dl (12.0-15.5); LYMPH # 4.2 10^3/uL (1.5-5.0); LYMPH % 37.8 % (24.0-44.0); MEAN CORPUSCULAR HEMOGLOBIN 28.5 pg (27.0-33.0); MEAN CORPUSCULAR HGB CONC 31.9 g/dl (32.0-36.5); MEAN CORPUSCULAR VOLUME 89.3 fl (80.0-96.0); MONO # 0.8 10^3/uL (0.0-0.8); NEUTROPHILS # 5.8 10^3/uL (1.5-8.5); NEUTROPHILS % 52.6 % (36.0-66.0); PLATELET COUNT, AUTOMATED 374 10^3/uL (150-450); RED BLOOD COUNT 4.49 10^6/uL (4.00-5.40)
[2022-04-24 13:43] LABS: HEMOGLOBIN A1c 5.6 %
[2022-04-24 13:48] LABS: ALBUMIN 3.6 GM/DL (3.2-5.2); ALT/SGPT 25 U/L (12-78); BILIRUBIN,TOTAL 0.3 MG/DL (0.2-1.0); BLOOD UREA NITROGEN 17 MG/DL (7-18); CALCIUM LEVEL 9.2 MG/DL (8.5-10.1); CARBON DIOXIDE LEVEL 24 MEQ/L (21-32); CHLORIDE LEVEL 111 MEQ/L (98-107); CREATININE FOR GFR 0.83 MG/DL (0.55-1.30); GLOMERULAR FILTRATION RATE > 60.0 (>60); GLUCOSE, FASTING 87 MG/DL (70-100); POTASSIUM SERUM 4.4 MEQ/L (3.5-5.1); SODIUM LEVEL 140 MEQ/L (136-145); TOTAL PROTEIN 6.9 GM/DL (6.4-8.2)
[2022-04-24 13:54] LABS: TOTAL 25(OH) VITAMIN D 30.1 NG/ML (30.0-100.0)
== END ==
LOC: M PLALAB 08:48
PROVIDERS: ATTEND Family Medicine
DX: E78.00 Pure hypercholesterolemia, unspecified (principal); R73.03 Prediabetes

== ENCOUNTER → 2022-08-13 | Outpatient (REF) | payer BC | LOC: M SFHCPLAZ 16:59 | PROVIDERS: ATTEND Physician Assistant | DX: R07.0 Pain in throat (principal) ==

== ENCOUNTER → 2022-10-03 | Outpatient (CLI) | payer BC ==
[2022-10-03 10:40] LABS: BASO # 0.1 10^3/uL (0.0-0.2); BASO % 0.8 % (0.0-1.0); EOS # 0.1 10^3/uL (0.0-0.5); EOS % 1.2 % (0.0-3.0); HEMATOCRIT 41.3 % (36.0-47.0); HEMOGLOBIN 12.9 g/dl (12.0-15.5); LYMPH # 3.7 10^3/uL (1.5-5.0); LYMPH % 35.9 % (24.0-44.0); MEAN CORPUSCULAR HEMOGLOBIN 28.5 pg (27.0-33.0); MEAN CORPUSCULAR HGB CONC 31.2 g/dl (32.0-36.5); MEAN CORPUSCULAR VOLUME 91.2 fl (80.0-96.0); MONO # 0.6 10^3/uL (0.0-0.8); MONO % 5.6 % (2.0-8.0); NEUTROPHILS # 5.8 10^3/uL (1.5-8.5); PLATELET COUNT, AUTOMATED 386 10^3/uL (150-450); RED BLOOD COUNT 4.53 10^6/uL (4.00-5.40); WHITE BLOOD COUNT 10.3 10^3/uL (4.0-10.0)
[2022-10-03 11:31] LABS: FREE T4 0.78 NG/DL (0.76-1.46); HEMOGLOBIN A1c 5.4 %; PERCENT SATURATION 9.4 % (13.2-45.0); THYROID STIMULATING HORMONE 2.08 uIU/ML (0.358-3.740)
[2022-10-03 18:34] LABS: TOTAL 25(OH) VITAMIN D 24.6 NG/ML (30.0-100.0)
== END ==
LOC: M PLALAB 08:15
PROVIDERS: ATTEND Physician Assistant
DX: R53.83 Other fatigue (principal); E66.01 Morbid (severe) obesity due to excess calories

== ENCOUNTER → 2023-03-10 | Outpatient (CLI) | payer BC | LOC: M PLAIMG 10:59 | PROVIDERS: ATTEND Physician Assistant | DX: M79.672 Pain in left foot (principal) ==

== ENCOUNTER → 2023-04-02 | Outpatient (CLI) | payer BC ==
[2023-04-02 10:43] LABS: BASO # 0.1 10^3/uL (0.0-0.2); BASO % 0.7 % (0.0-1.0); EOS # 0.1 10^3/uL (0.0-0.5); HEMATOCRIT 41.1 % (36.0-47.0); HEMOGLOBIN 13.4 g/dl (12.0-15.5); LYMPH # 4.3 10^3/uL (1.5-5.0); MEAN CORPUSCULAR HEMOGLOBIN 28.8 pg (27.0-33.0); MEAN CORPUSCULAR HGB CONC 32.6 g/dl (32.0-36.5); MEAN CORPUSCULAR VOLUME 88.2 fl (80.0-96.0); MONO # 0.8 10^3/uL (0.0-0.8); MONO % 6.2 % (2.0-8.0); NEUTROPHILS # 7.3 10^3/uL (1.5-8.5); NEUTROPHILS % 57.7 % (36.0-66.0); PLATELET COUNT, AUTOMATED 388 10^3/uL (150-450); RED BLOOD COUNT 4.66 10^6/uL (4.00-5.40); WHITE BLOOD COUNT 12.7 10^3/uL (4.0-10.0)
[2023-04-02 10:48] LABS: ALBUMIN 3.8 G/DL (3.2-5.2); ALKALINE PHOSPHATASE 111 U/L (46-116); ALT/SGPT 22 U/L (7.0-40); AST/SGOT 18 U/L (<34); BILIRUBIN,TOTAL 0.3 MG/DL (0.3-1.2); BLOOD UREA NITROGEN 12 MG/DL (9-23); CALCIUM LEVEL 8.7 MG/DL (8.5-10.1); CARBON DIOXIDE LEVEL 23 MMOL/L (20-31); CHLORIDE LEVEL 110 MMOL/L (98-107); CHOLESTEROL LEVEL 214 MG/DL (<200); CHOLESTEROL RISK RATIO 4.23 (<5); CREATININE FOR GFR 0.83 MG/DL (0.55-1.30); GLOMERULAR FILTRATION RATE > 60.0 (>60); GLUCOSE, FASTING 93 MG/DL (60-100); HDL CHOLESTEROL 50.5 MG/DL (>40); IRON (FE) 33 UG/DL (50-170); LDL CHOLESTEROL 136.5 MG/DL (<100); NON-HDL-C 163.5 MG/DL; POTASSIUM SERUM 4.3 MMOL/L (3.5-5.1); SODIUM LEVEL 142 MMOL/L (136-145); TOTAL 25(OH) VITAMIN D 39.2 NG/ML (20.0-100.0); TRIGLYCERIDES LEVEL 135 MG/DL (<150)
[2023-04-02 11:11] LABS: HEMOGLOBIN A1c 5.4 % (4.0-6.0)
== END ==
LOC: M PLALAB 08:46
PROVIDERS: ATTEND Physician Assistant
DX: R73.03 Prediabetes (principal)

== ENCOUNTER → 2023-04-11 | Outpatient (CLI) | payer BC ==
[2023-04-11 11:05] LABS: THYROID STIMULATING HORMONE 2.7 uIU/ML (0.55-4.78)
[2023-04-11 11:06] LABS: FREE T4 0.9 NG/DL (0.89-1.76)
== END ==
LOC: M PLALAB 07:03
PROVIDERS: ATTEND Physician Assistant
DX: Z13.29 Encounter for screening for other suspected endocrine disorder (principal)

== ENCOUNTER 2023-07-09 15:39 | Emergency (ER) | payer BC ==
[~2023-07-09] VITALS: Ht 172.7 cm; Wt 129.6 kg
[2023-07-09 16:13] LABS: HEMATOCRIT 39.3 % (36.0-47.0); HEMOGLOBIN 12.8 g/dl (12.0-15.5); MEAN CORPUSCULAR HEMOGLOBIN 28.7 pg (27.0-33.0); MEAN CORPUSCULAR HGB CONC 32.6 g/dl (32.0-36.5); MEAN CORPUSCULAR VOLUME 88.1 fl (80.0-96.0); PLATELET COUNT, AUTOMATED 362 10^3/uL (150-450); RED BLOOD COUNT 4.46 10^6/uL (4.00-5.40); WHITE BLOOD COUNT 14.1 10^3/uL (4.0-10.0)
[2023-07-09 16:39] LABS: BLOOD UREA NITROGEN 16 MG/DL (9-23); CALCIUM LEVEL 9.2 MG/DL (8.5-10.1); CARBON DIOXIDE LEVEL 24 MMOL/L (20-31); CHLORIDE LEVEL 107 MMOL/L (98-107); CK-MB VALUE MASS < 1.0 NG/ML (<3.6); CREATININE FOR GFR 0.75 MG/DL (0.55-1.30); GLOMERULAR FILTRATION RATE > 60.0 (>60); GLUCOSE, FASTING 98 MG/DL (60-100); POTASSIUM SERUM 4.6 MMOL/L (3.5-5.1); SODIUM LEVEL 140 MMOL/L (136-145)
[2023-07-09 16:40] LABS: CPK CREATINE PHOSPHOKINASE 49 U/L (34-145); MB/CK RELATIVE INDEX 2.04 (< OR =4)
[2023-07-09 17:09] LABS: ATYPICAL LYMPH 5 % (0-5); LYMPHOCYTES 33 % (16-44); MONOCYTES 6 % (0-5); NEUTROPHILS 56 % (28-66); PLATELET ESTIMATE NORMAL (NORMAL)
[2023-07-09] MEDS ORDERED: ISOVUE-370 76% 100ML VIAL As Ordered ONE (17:20)
[2023-07-09] MEDS ORDERED: NAPR-837 PO (18:21)
[2023-07-09 18:30] VITALS: BP 116/77; TEMP 97.6; O2SAT 100
== END 2023-07-09 18:32 | disposition home or self-care (01) ==
LOC: EDBD 15:39 → M ED 15:39
DX: R07.9 Chest pain, unspecified (principal); G40.909 Epilepsy, unspecified, not intractable, without status epilepticus; G43.909 Migraine, unspecified, not intractable, without status migrainosus; F41.9 Anxiety disorder, unspecified; F32.A Depression, unspecified; F10.10 Alcohol abuse, uncomplicated; Z87.891 Personal history of nicotine dependence; Z79.4 Long term (current) use of insulin; Z79.899 Other long term (current) drug therapy
CPT/HCPCS: 36415; 71045; 71275; 80048; 82550; 82553; 84484; 85025; 93005; 93041; 94760; 99285; Q9967

== ENCOUNTER → 2023-07-25 | Outpatient (CLI) | payer BC ==
[~2023-07-25] MED LIST changes: +NAPR-837 PO
[2023-07-25 10:30] LABS: BASO # 0.1 10^3/uL (0.0-0.2); BASO % 0.8 % (0.0-1.0); EOS # 0.2 10^3/uL (0.0-0.5); EOS % 1.1 % (0.0-3.0); HEMATOCRIT 39.9 % (36.0-47.0); HEMOGLOBIN 12.8 g/dl (12.0-15.5); LYMPH # 4.3 10^3/uL (1.5-5.0); LYMPH % 32.6 % (24.0-44.0); MEAN CORPUSCULAR HEMOGLOBIN 28.5 pg (27.0-33.0); MEAN CORPUSCULAR HGB CONC 32.1 g/dl (32.0-36.5); MEAN CORPUSCULAR VOLUME 88.9 fl (80.0-96.0); MONO % 7.3 % (2.0-8.0); NEUTROPHILS # 7.5 10^3/uL (1.5-8.5); NEUTROPHILS % 57.7 % (36.0-66.0); PLATELET COUNT, AUTOMATED 374 10^3/uL (150-450); RED BLOOD COUNT 4.49 10^6/uL (4.00-5.40); WHITE BLOOD COUNT 13.1 10^3/uL (4.0-10.0)
[2023-07-25 10:48] LABS: HEMOGLOBIN A1c 5.6 % (4.0-6.0)
[2023-07-25 11:03] LABS: FERRITIN 24.4 NG/ML (7.3-270.7); FREE T4 1.06 NG/DL (0.89-1.76)
[2023-07-25 11:04] LABS: PERCENT SATURATION 13.2 % (13.2-45.0); THYROID STIMULATING HORMONE 4.145 uIU/ML (0.55-4.78)
[2023-07-25 11:05] LABS: FOLATE 19.56 NG/ML (>5.4)
== END ==
LOC: M PLALAB 07:05
PROVIDERS: ATTEND Physician Assistant
DX: D50.9 Iron deficiency anemia, unspecified (principal); R73.03 Prediabetes; E66.2 Morbid (severe) obesity with alveolar hypoventilation

== ENCOUNTER → 2023-11-23 | Outpatient (REF) | payer BC ==
[~2023-11-23] MED LIST changes: +CEFD1CAP9; -CEFD300C41; +LORA-1041 PO; -LORA-674 PO
[2023-11-23 15:48] LABS: AMORPHOUS SEDIMENT MODERATE (NEGATIVE); APPEARANCE, URINE TURBID (CLEAR); BACTERIA, URINE AUTO NEGATIVE (NEGATIVE); BILIRUBIN, URINE AUTO NEGATIVE (NEGATIVE); BLOOD, URINE BLOOD NEGATIVE (NEGATIVE); COLOR, URINE AMBER (YELLOW); GLUCOSE, URINE (UA) AUTO NEGATIVE (NEGATIVE); KETONE, URINE AUTO NEGATIVE (NEGATIVE); LEUKOCYTE ESTERASE, URINE AUTO NEGATIVE (NEGATIVE); MUCUS, URINE SMALL (NEGATIVE); NITRITE, URINE AUTO NEGATIVE (NEGATIVE); PROTEIN, URINE AUTO NEGATIVE (NEGATIVE); RBC, URINE AUTO 5 /HPF (0-3); SPECIFIC GRAVITY URINE AUTO 1.025 (1.002-1.035); SQUAMOUS EPITHELIAL CELL UR AU 13 /HPF (0-6); UROBILINOGEN, URINE AUTO 0.2 mg/dL (0.0-2.0); WBC, URINE AUTO 102 /HPF (0-3)
== END ==
LOC: M LAB REF 15:16
PROVIDERS: ATTEND Physician Assistant Medical
DX: N39.0 Urinary tract infection, site not specified (principal)

== ENCOUNTER 2024-08-24 10:40 | Emergency (ER) | payer BC, OTHER ==
[~2024-08-24] VITALS: Ht 172.7 cm; Wt 127.3 kg
[~2024-08-24 10:40] MED LIST changes: +ONDA-282 PO; -ONDA4TAB6 PO
[2024-08-24 14:14] LABS: BASO % 0.4 % (0.0-1.0); HEMATOCRIT 42.5 % (36.0-47.0); HEMOGLOBIN 13.7 g/dl (12.0-15.5); LYMPH # 0.5 10^3/uL (1.5-5.0); LYMPH % 6.5 % (24.0-44.0); MEAN CORPUSCULAR HGB CONC 32.2 g/dl (32.0-36.5); MEAN CORPUSCULAR VOLUME 86.9 fl (80.0-96.0); MONO # 0.7 10^3/uL (0.0-0.8); MONO % 9.3 % (2.0-8.0); NEUTROPHILS # 6.4 10^3/uL (1.5-8.5); NEUTROPHILS % 83.3 % (36.0-66.0); PLATELET COUNT, AUTOMATED 323 10^3/uL (150-450); RED BLOOD COUNT 4.89 10^6/uL (4.00-5.40); WHITE BLOOD COUNT 7.7 10^3/uL (4.0-10.0)
[2024-08-24 14:26] LABS: RSV AMPLIFICATION NEGATIVE (NEGATIVE)
[2024-08-24 14:45] LABS: BLOOD UREA NITROGEN 9 MG/DL (9-23); CALCIUM LEVEL 9.1 MG/DL (8.5-10.1); CARBON DIOXIDE LEVEL 26 MMOL/L (20-31); CHLORIDE LEVEL 104 MMOL/L (98-107); CREATININE FOR GFR 0.72 MG/DL (0.55-1.30); GLOMERULAR FILTRATION RATE > 60.0 (>60); GLUCOSE, FASTING 108 MG/DL (60-100); POTASSIUM SERUM 3.9 MMOL/L (3.5-5.1); SODIUM LEVEL 135 MMOL/L (136-145)
[2024-08-24] MEDS: METOCLOPRAMIDE INJ 10MG/2ML VIAL IV ONE (16:50)
[2024-08-24] MEDS: diphenhydrAMINE 50MG/ML VIAL IV ONE (16:50)
[2024-08-24] MEDS: KETOROLAC 30 MG/ML 1ML VIAL IV ONE (16:50)
[2024-08-24] MEDS: NS 1,000 ML IV ONE (16:51)
[2024-08-24] MEDS ORDERED: IBUP-1022 PO (17:44)
[2024-08-24] MEDS ORDERED: REGL10TA6 PO (17:45)
[2024-08-24 17:59] VITALS: BP 123/68; TEMP 97.7; O2SAT 97
== END 2024-08-24 18:03 | disposition home or self-care (01) ==
LOC: M ED 10:40
DX: U07.1 COVID-19 (principal); K21.9 Gastro-esophageal reflux disease without esophagitis; E28.2 Polycystic ovarian syndrome; F12.10 Cannabis abuse, uncomplicated; Z79.84 Long term (current) use of oral hypoglycemic drugs; Z79.899 Other long term (current) drug therapy; Z79.1 Long term (current) use of non-steroidal anti-inflammatories (NSAID)
CPT/HCPCS: 80048; 81001; 85025; 87631; 96361; 96374; 99284; J1200; J1885; J2765

== ENCOUNTER → 2024-12-23 | Outpatient (CLI) | payer OTHER ==
[~2024-12-23] MED LIST changes: +REGL10TA6 PO
[2024-12-23 10:15] LABS: HEMATOCRIT 41.6 % (36.0-47.0); HEMOGLOBIN 13.3 g/dl (12.0-15.5); MEAN CORPUSCULAR HEMOGLOBIN 27.9 pg (27.0-33.0); MEAN CORPUSCULAR VOLUME 87.2 fl (80.0-96.0); PLATELET COUNT, AUTOMATED 381 10^3/uL (150-450); RED BLOOD COUNT 4.77 10^6/uL (4.00-5.40); WHITE BLOOD COUNT 11.2 10^3/uL (4.0-10.0)
[2024-12-23 10:50] LABS: PERCENT SATURATION 24.6 % (13.2-45.0)
[2024-12-23 10:52] LABS: FERRITIN 28.5 NG/ML (7.3-270.7); THYROID STIMULATING HORMONE 1.671 uIU/ML (0.55-4.78); TOTAL 25(OH) VITAMIN D 31.1 NG/ML (20.0-100.0)
[2024-12-23 10:53] LABS: FREE T4 1.15 NG/DL (0.89-1.76)
[2024-12-23 11:30] LABS: HEMOGLOBIN A1c 5.4 % (4.0-6.0)
== END ==
LOC: M PLALAB 08:55
PROVIDERS: ATTEND Nurse Practitioner Family
DX: E55.9 Vitamin D deficiency, unspecified (principal); D50.9 Iron deficiency anemia, unspecified; Z13.1 Encounter for screening for diabetes mellitus; Z13.29 Encounter for screening for other suspected endocrine disorder

== ENCOUNTER 2025-04-02 16:58 | Emergency (ER) | payer OTHER ==
[~2025-04-02] VITALS: Ht 172.7 cm; Wt 138.8 kg
[~2025-04-02 16:58] MED LIST changes: +TOPI-257 PO; -TOPI100T9 PO
[2025-04-02 17:47] LABS: HEMATOCRIT 39.1 % (36.0-47.0); MEAN CORPUSCULAR HEMOGLOBIN 28.6 pg (27.0-33.0); MEAN CORPUSCULAR HGB CONC 33.2 g/dl (32.0-36.5); MEAN CORPUSCULAR VOLUME 86.1 fl (80.0-96.0); PLATELET COUNT, AUTOMATED 357 10^3/uL (150-450); RED BLOOD COUNT 4.54 10^6/uL (4.00-5.40)
[2025-04-02 18:00] LABS: CK-MB VALUE MASS < 1.0 NG/ML (<3.6)
[2025-04-02 18:02] LABS: ATYPICAL LYMPH 3 % (0-5); BLOOD UREA NITROGEN 15 MG/DL (9-23); CALCIUM LEVEL 8.8 MG/DL (8.5-10.1); CARBON DIOXIDE LEVEL 23 MMOL/L (20-31); CHLORIDE LEVEL 108 MMOL/L (98-107); CREATININE FOR GFR 0.76 MG/DL (0.55-1.30); EOSINOPHILS 1 % (0-3); GLOMERULAR FILTRATION RATE > 90.0 (>58); GLUCOSE, FASTING 121 MG/DL (60-100); LYMPHOCYTES 38 % (16-44); MONOCYTES 3 % (0-5); NEUTROPHILS 55 % (28-66); PLATELET ESTIMATE NORMAL (NORMAL); POTASSIUM SERUM 4.2 MMOL/L (3.5-5.1); SODIUM LEVEL 140 MMOL/L (136-145)
[2025-04-02] MEDS ORDERED: ISOVUE-370 76% 100ML VIAL As Ordered ONE (18:19)
[2025-04-02 18:22] LABS: LIPASE 41 U/L (12-53)
[2025-04-02 18:26] LABS: ALBUMIN 3.5 G/DL (3.2-5.2); ALKALINE PHOSPHATASE 95 U/L (35-104); ALT/SGPT 20 U/L (7.0-40); AST/SGOT 15 U/L (<34); BILIRUBIN,DIRECT < 0.1 MG/DL (<0.4); BILIRUBIN,TOTAL 0.3 MG/DL (0.3-1.2); FREE T4 1.09 NG/DL (0.89-1.76); MAGNESIUM LEVEL 1.8 MG/DL (1.8-2.4); THYROID STIMULATING HORMONE 4.011 uIU/ML (0.55-4.78); TOTAL PROTEIN 6.9 G/DL (5.7-8.2)
[2025-04-02 18:28] LABS: CPK CREATINE PHOSPHOKINASE 51 U/L (34-145); MB/CK RELATIVE INDEX 1.96 (< OR =4)
[2025-04-02 19:01] LABS: CK-MB VALUE MASS < 1.0 NG/ML (<3.6)
[2025-04-02 19:03] LABS: CPK CREATINE PHOSPHOKINASE 47 U/L (34-145); MB/CK RELATIVE INDEX 2.12 (< OR =4)
[2025-04-02 21:58] VITALS: BP 120/68; TEMP 98; O2SAT 82
== END 2025-04-02 22:12 | disposition home or self-care (01) ==
LOC: M ED 16:58
DX: R07.9 Chest pain, unspecified (principal); F41.9 Anxiety disorder, unspecified; E66.9 Obesity, unspecified; G43.909 Migraine, unspecified, not intractable, without status migrainosus; F17.200 Nicotine dependence, unspecified, uncomplicated; F12.10 Cannabis abuse, uncomplicated; F10.10 Alcohol abuse, uncomplicated; Z88.0 Allergy status to penicillin; Z88.2 Allergy status to sulfonamides; Z79.899 Other long term (current) drug therapy
CPT/HCPCS: 36415; 71045; 71275; 80048; 80076; 82550; 82553; 83690; 83735; 84439; 84443; 84484; 85025; 93005; 93041; 94760; 99285; Q9967

== ENCOUNTER → 2025-06-02 | Outpatient (CLI) | payer OTHER ==
[~2025-06-02] MED LIST changes: -IBUP-1022 PO; +IBUP600T42 PO; +LIDO1ADH93 TOP; -LIDO5DIS41 TOP; -PROZ20CA11 PO; +PROZ20CA12 PO
== END ==
LOC: M PLAIMG 16:09
DX: M25.561 Pain in right knee (principal)

== ENCOUNTER → 2025-07-07 | Outpatient (CLI) | payer OTHER ==
[~2025-07-07] MED LIST changes: +IBUP-1022 PO; -IBUP600T42 PO
[2025-07-07 12:08] LABS: PLATELET COUNT, AUTOMATED 387 10^3/uL (150-450)
[2025-07-07 12:44] LABS: ALT/SGPT 17 U/L (7.0-40); AST/SGOT 18 U/L (<34); CALCIUM LEVEL 8.9 MG/DL (8.5-10.1); CARBON DIOXIDE LEVEL 26 MMOL/L (20-31); CHLORIDE LEVEL 105 MMOL/L (98-107); CREATININE FOR GFR 0.79 MG/DL (0.55-1.30); GLOMERULAR FILTRATION RATE > 90.0 (>58); POTASSIUM SERUM 4.5 MMOL/L (3.5-5.1); SODIUM LEVEL 140 MMOL/L (136-145)
== END ==
LOC: M PLALAB 08:00
DX: R10.13 Epigastric pain (principal)

== ENCOUNTER → 2025-07-09 | Outpatient (REF) | payer OTHER | LOC: M LAB REF 08:15 | DX: R10.13 Epigastric pain (principal) ==

== ENCOUNTER → 2025-08-08 | Outpatient (CLI) | payer OTHER ==
[~2025-08-08] MED LIST changes: -IBUP-1022 PO; +IBUP600T42 PO
== END ==
LOC: M PLALAB 07:48
DX: K90.41 Non-celiac gluten sensitivity (principal)

== ENCOUNTER → 2025-08-11 | Outpatient (CLI) | payer OTHER | LOC: M RAD 08:10 | DX: R10.13 Epigastric pain (principal) ==